=== PATIENT | female | born 1940 | race Caucasian/White ===

== ENCOUNTER 2016-10-07 12:50 | Emergency (ER) | payer OTHER, MEDICARE ==
[~2016-10-07] VITALS: Ht 162.6 cm; Wt 50.3 kg
[2016-10-07] MEDS ORDERED: SODIUM CHLORIDE 0.9% 1000ML 1,000 ML IV STA (12:59)
--- NOTE | 2016-10-07 13:03 | EMERGENCY ROOM VISIT NOTE ---
History Report prepared by Sujit: Yakov Mondragon Under the Supervision of: Dr. Magno Ortiz D.O. First contact with patient: 12:52 Chief Complaint: ABDOMINAL PAIN Stated Complaint: ABD PAIN History of Present Illness The patient is a 76 year old female with dementia who presents to the Emergency Room with complaints of persistent abdominal pain that started prior to arrival today. Per the nursing staff, the patient's called an ambulance after the patient was in her house holding her stomach. The patient had stools all over her legs. History severely limited secondary to patient's dementia. Source of History: patient History Limited By: dementia Onset: Prior to arrival today Position: abdomen Symptom Intensity: holding stomach due to pain Timing: other (persistent) Note: Associated symptoms: Loss of control of bowels. Review of Systems ROS limited secondary to patient's dementia. Past Medical & Surgical Medical Problems: (1) Dementia Family History Family history omitted secondary to advanced age. Social History Marital Status: Housing Status: lives with family Occupation Status: retired Current/Historical Medications Scheduled Levothyroxine Sodium (Synthroid), 50 MCG PO DAILY Metoprolol Succ (Toprol Xl) (Toprol-Xl), 50 MG PO DAILY Polyethylene Glycol 3350 (Miralax), 17 GM PO DAILY Allergies Coded Allergies: No Known Allergies (Unverified , 10/07/16) Physical Exam Vital Signs Date Time Temp Pulse Resp B/P Pulse Ox O2 Delivery O2 Flow Rate FiO2 10/07/16 15:53 82 18 191/92 96 10/07/16 14:39 81 18 179/100 98 Room Air 10/07/16 14:05 86 10/07/16 13:13 86 18 227/108 97 Room Air Physical Exam GENERAL: Patient is awake, alert, somewhat anxious appearing, appears comfortable. Very difficult to assess due to underlying dementia. EYES: The conjunctivae are clear. The pupils are round and reactive. EARS, NOSE, MOUTH AND THROAT: The nose is without any evidence of any deformity. Mucous membranes are moist tongue is midline NECK: The neck is nontender and supple. RESPIRATORY: Normal respiratory effort is noted there is no evidence of wheezing rhonchi or rales CARDIOVASCULAR: Regular rate and rhythm noted there no murmurs rubs or gallops normal S1 normal S2 GASTROINTESTINAL: The abdomen is moderately distended and diffusely tender. No specific guarding or rigidity noted. MUSCULOSKELETAL/EXTREMITIES: There is no evidence of gross deformity full range of motion is noted in the hips and shoulders SKIN: There is no obvious evidence of any rash. There are no petechiae, pallor or cyanosis noted. NEUROLOGIC: Patient is oriented to person, place, but not time or situation. Moves all extremities well. Medical Decision & Procedures ER Provider Diagnostic Interpretation: Radiology results as stated below per my review and radiologist interpretation: SINGLE VIEW CHEST CLINICAL HISTORY: Generalized abdominal pain. FINDINGS: An AP, portable, upright chest radiograph is obtained. No prior studies are available for comparison at the time of dictation. The examination is degraded by portable technique and patient rotation, as well as by collimation of the right lateral lung base. The cardiomediastinal silhouette is unremarkable. There is mild atherosclerotic calcification of the thoracic aorta. The lungs and pleural spaces are clear. No pneumothorax is seen. The skeletal structures are osteopenic. The bony thorax is grossly intact. IMPRESSION: No acute cardiopulmonary abnormality is identified noting a compromised examination and exclusion of the right lateral lung base. Electronically signed by: Kedar Melchor M.D. 10/07/2016 2:04 PM Dictated Date/Time: 10/07/2016 2:00 PM ABDOMEN AND PELVIS CT WITHOUT CONTRAST CT DOSE: 253.32 mGy.cm HISTORY: Generalized abdominal pain TECHNIQUE: Multiaxial CT images of the abdomen and pelvis were performed without contrast. COMPARISON STUDY: None. FINDINGS: The lung bases are clear. No pneumoperitoneum. No pneumatosis. Mild superior endplate compression fracture at L3. This is likely chronic. There is also old superior endplate compression fracture at T10. Small hiatus hernia. Suboptimal evaluation of the abdomen and pelvis due to motion artifact. The unenhanced liver, gallbladder, spleen, adrenal glands, and kidneys are unremarkable. The visualized pancreas appears unremarkable. No retroperitoneal lymphadenopathy. The bladder, uterus, and adnexa are within normal limits. Suboptimal evaluation for bowel pathology due to the lack of intravenous and oral contrast. Large amount of well-formed stool seen within the rectum. Moderate well-formed stool seen within the ascending and transverse colon. Normal appendix. No definite bowel wall thickening or obstruction. IMPRESSION: 1. Suboptimal evaluation of the abdomen and pelvis due to lack of contrast and patient motion. 2. No definite bowel wall thickening or obstruction. 3. Moderate to large amount well-formed stool seen within the colon and rectum. 4. Normal appendix. 5. Colonic diverticulosis. 6. Mild superior endplate compression fractures at T10 and L3 which are technically age indeterminate but likely old. Electronically signed by: Magan Christie M.D. 10/07/2016 1:57 PM Dictated Date/Time: 10/07/2016 1:33 PM Laboratory Results 10/07/16 13:47 Red Blood Count 4.95, Mean Corpuscular Volume 89.5, Mean Corpuscular Hemoglobin 30.5, Mean Corpuscular Hemoglobin Concent 34.1, Mean Platelet Volume 11.0, Neutrophils (%) (Auto) 81.3, Lymphocytes (%) (Auto) 11.0, Monocytes (%) (Auto) 7.3, Eosinophils (%) (Auto) 0.1, Basophils (%) (Auto) 0.1, Neutrophils # (Auto) 7.20, Lymphocytes # (Auto) 0.98, Monocytes # (Auto) 0.65, Eosinophils # (Auto) 0.01, Basophils # (Auto) 0.01 10/07/16 13:47 Test 10/07/16 13:47 10/07/16 13:52 White Blood Count 8.87 K/uL (4.8-10.8) Red Blood Count 4.95 M/uL (4.2-5.4) Hemoglobin 15.1 g/dL (12.0-16.0) Hematocrit 44.3 % (37-47) Mean Corpuscular Volume 89.5 fL (80-100) Mean Corpuscular Hemoglobin 30.5 pg (25-34) Mean Corpuscular Hemoglobin Concent 34.1 g/dl (32-36) Platelet Count 234 K/uL (130-400) Mean Platelet Volume 11.0 fL (7.4-10.4) Neutrophils (%) (Auto) 81.3 % Lymphocytes (%) (Auto) 11.0 % Monocytes (%) (Auto) 7.3 % Eosinophils (%) (Auto) 0.1 % Basophils (%) (Auto) 0.1 % Neutrophils # (Auto) 7.20 K/uL (1.4-6.5) Lymphocytes # (Auto) 0.98 K/uL (1.2-3.4) Monocytes # (Auto) 0.65 K/uL (0.11-0.59) Eosinophils # (Auto) 0.01 K/uL (0-0.5) Basophils # (Auto) 0.01 K/uL (0-0.2) RDW Standard Deviation 44.2 fL (36.4-46.3) RDW Coefficient of Variation 13.5 % (11.5-14.5) Immature Granulocyte % (Auto) 0.2 % Immature Granulocyte # (Auto) 0.02 K/uL (0.00-0.02) Anion Gap 7.0 mmol/L (3-11) Est Creatinine Clear Calc Drug Dose 43.3 ml/min Estimated GFR () 76.1 Estimated GFR (Non- 65.6 BUN/Creatinine Ratio 23.1 (10-20) Calcium Level 9.8 mg/dl (8.5-10.1) Total Bilirubin 0.6 mg/dl (0.2-1) Direct Bilirubin 0.1 mg/dl (0-0.2) Aspartate Amino Transf (AST/SGOT) 22 U/L (15-37) Alanine Aminotransferase (ALT/SGPT) 22 U/L (12-78) Alkaline Phosphatase 108 U/L (45-117) Total Creatine Kinase 74 U/L (26-192) Creatine Kinase MB 2.0 ng/ml (0.5-3.6) Creatine Kinase MB Ratio 2.7 (0-3.0) Troponin I < 0.015 ng/ml (0-0.045) Total Protein 8.3 gm/dl (6.4-8.2) Albumin 4.4 gm/dl (3.4-5.0) Lipase 146 U/L (73-393) Bedside Lactic Acid Venous 2.35 mmol/L (0.90-1.70) Laboratory results per my review. Medications Administered Medications (Trade) Dose Ordered Sig/Altagracia Route Start Time Stop Time Status Last Admin Dose Admin Sodium Chloride 1,000 ml @ 125 mls/hr Q8H STAT IV 10/07/16 12:59 10/07/16 16:16 DC 10/07/16 14:34 125 MLS/HR Sodium Chloride (Nss 500ml) 500 ml @ 999 mls/hr Q31M STAT IV 10/07/16 13:55 10/07/16 14:25 DC 10/07/16 13:55 999 MLS/HR ECG Indication: abdominal pain Rate (beats per minute): 92 Rhythm: normal sinus Findings: ST depression, no ectopy, other (incomplete RBBB pattern noted) Comparison ECG Date: no prior available ED Course 1254: The patient was evaluated in room C5. A complete history and physical examination were performed. 1259: Ordered NSS 1000 ml @ 125 mls/hr IV. 1355: Ordered NSS 500 ml @ 999 mls/hr IV. 1545: Upon reevaluation, the patient is resting comfortably. I discussed the results and treatment plan with her and her family. They verbally expressed agreement and understanding of the treatment plan. The patient will be discharged home. Medical Decision History obtained from nursing staff. Differential diagnosis: Etiologies such as appendicitis, diverticulitis, PUD, biliary pathology, UTI, pancreatitis, obstruction, mesenteric ischemia, aortic pathology, infections, inflammatory bowel disease, renal colic, as well as others were entertained. Additional history is obtained from the family members. The patient is a 76-year-old female who presented to the emergency department for an evaluation of abdominal pain. The patient was found have constipation and fecal impaction. She was disimpacted by nursing staff and was feeling much better on subsequent reevaluation. I discussed the patient's laboratory radiographic studies with the family. I recommended that they follow-up with the primary care physician in a few days and started the patient on a course of Juliann lax. There are also encouraged to return to emergency department immediately if symptoms change worsen or the need arises. Impression Primary Impression: Constipation Additional Impression: Abdominal pain Scribe Attestation The scribe's documentation has been prepared under my direction and personally reviewed by me in its entirety. I confirm that the note above accurately reflects all work, treatment, procedures, and medical decision making performed by me. Departure Information Dispostion Home / Self-Care Prescriptions Polyethylene Glycol 3350 (MIRALAX) 1 Pow Pow 17 GM PO DAILY, #527 GM Prov: Magno Ortiz DO 10/07/16 Referrals Mayrana Urrutia MD (PCP) Forms HOME CARE DOCUMENTATION FORM, IMPORTANT VISIT INFORMATION Patient Instructions Constipation, ED Abd Pain Unkn Cause Fem, My [facility] Additional Instructions Continue all medications as prescribed. Follow-up with your family doctor this week for reevaluation. Return to the emergency department immediately if symptoms change worsen or the need arises. Problem Qualifiers Primary Impression: Constipation Constipation type: unspecified constipation type Qualified Codes: K59.00 - Constipation, unspecified Additional Impression: Abdominal pain Abdominal location: unspecified location Qualified Codes: R10.9 - Unspecified abdominal pain
[2016-10-07 13:13] VITALS: Ht 162.6 cm; Wt 50.3 kg
[2016-10-07] MEDS ORDERED: SODIUM CHLORIDE 0.9% 500ML 500 ML IV STA (13:55)
--- NOTE | 2016-10-07 13:59 | DIAGNOSTIC IMAGING REPORT ---
ABDOMEN AND PELVIS CT WITHOUT CONTRAST CT DOSE: 253.32 mGy.cm HISTORY: Generalized abdominal pain TECHNIQUE: Multiaxial CT images of the abdomen and pelvis were performed without contrast. COMPARISON STUDY: None. FINDINGS: The lung bases are clear. No pneumoperitoneum. No pneumatosis. Mild superior endplate compression fracture at L3. This is likely chronic. There is also old superior endplate compression fracture at T10. Small hiatus hernia. Suboptimal evaluation of the abdomen and pelvis due to motion artifact. The unenhanced liver, gallbladder, spleen, adrenal glands, and kidneys are unremarkable. The visualized pancreas appears unremarkable. No retroperitoneal lymphadenopathy. The bladder, uterus, and adnexa are within normal limits. Suboptimal evaluation for bowel pathology due to the lack of intravenous and oral contrast. Large amount of well-formed stool seen within the rectum. Moderate well-formed stool seen within the ascending and transverse colon. Normal appendix. No definite bowel wall thickening or obstruction. IMPRESSION: 1. Suboptimal evaluation of the abdomen and pelvis due to lack of contrast and patient motion. 2. No definite bowel wall thickening or obstruction. 3. Moderate to large amount well-formed stool seen within the colon and rectum. 4. Normal appendix. 5. Colonic diverticulosis. 6. Mild superior endplate compression fractures at T10 and L3 which are technically age indeterminate but likely old. Electronically signed by: Magan Christie M.D. 10/07/2016 1:57 PM Dictated Date/Time: 10/07/2016 1:33 PM
--- NOTE | 2016-10-07 14:06 | DIAGNOSTIC IMAGING REPORT ---
SINGLE VIEW CHEST CLINICAL HISTORY: Generalized abdominal pain. FINDINGS: An AP, portable, upright chest radiograph is obtained. No prior studies are available for comparison at the time of dictation. The examination is degraded by portable technique and patient rotation, as well as by collimation of the right lateral lung base. The cardiomediastinal silhouette is unremarkable. There is mild atherosclerotic calcification of the thoracic aorta. The lungs and pleural spaces are clear. No pneumothorax is seen. The skeletal structures are osteopenic. The bony thorax is grossly intact. IMPRESSION: No acute cardiopulmonary abnormality is identified noting a compromised examination and exclusion of the right lateral lung base. Electronically signed by: Kedar Melchor M.D. 10/07/2016 2:04 PM Dictated Date/Time: 10/07/2016 2:00 PM
[2016-10-07] MEDS ORDERED: METO50TA7 PO (14:17)
[2016-10-07] MEDS ORDERED: LEVO50TA PO (14:17)
[2016-10-07 14:25] LABS: BASO % 0.1 %; BASO ABS # 0.01 K/uL (0-0.2); COMPLETE YES; EOS % 0.1 %; HEMATOCRIT 44.3 % (37-47); IG% 0.2 %; LYMPH ABS # 0.98 K/uL (1.2-3.4); MEAN CELL VOLUME 89.5 fL (80-100); MEAN CORPUSCULAR HEMOGLOBIN 30.5 pg (25-34); MEAN CORPUSCULAR HGB CONC 34.1 g/dl (32-36); MONO % 7.3 %; NEUT % 81.3 %; PLATELET COUNT 234 K/uL (130-400); RED BLOOD COUNT 4.95 M/uL (4.2-5.4); WHITE BLOOD COUNT 8.87 K/uL (4.8-10.8)
[2016-10-07 14:33] LABS: ALT/SGPT 22 U/L (12-78); AST/SGOT 22 U/L (15-37); BLOOD UREA NITROGEN 20 mg/dl (7-18); BUN/CREATININE RATIO 23.1 (10-20); CALCIUM 9.8 mg/dl (8.5-10.1); CARBON DIOXIDE 28 mmol/L (21-32); CHLORIDE 104 mmol/L (98-107); CREATININE 0.85 mg/dl (0.60-1.20); GLUCOSE 143 mg/dl (70-99); SODIUM 139 mmol/L (136-145)
[2016-10-07 15:05] LABS: ALKALINE PHOSPHATASE 108 U/L (45-117); CKMB/CK RATIO 2.7 (0-3.0)
[2016-10-07] MEDS ORDERED: POLY335019 PO (15:42)
[2016-10-07 15:53] VITALS: BP 191/92; PULSE 82; O2SAT 96
== END 2016-10-07 15:56 | disposition home or self-care (01) ==
LOC: EDBD 12:50 → C.EDC 12:51
DX: K59.00 Constipation, unspecified (principal); R10.9 Unspecified abdominal pain; F03.90 Unspecified dementia, unspecified severity, without behavioral disturbance, psychotic disturbance, mood disturbance, and anxiety; Z79.899 Other long term (current) drug therapy

== ENCOUNTER → 2017-05-28 | Outpatient (CLI) | payer OTHER, MEDICARE ==
[~2017-05-28] MED LIST: LEVO50TA PO; METO50TA7 PO
[2017-05-28 17:00] LABS: BASO % 0.3 %; BASO ABS # 0.02 K/uL (0-0.2); COMPLETE YES; HEMATOCRIT 44.3 % (37-47); IG% 0.5 %; LYMPH % 22.4 %; LYMPH ABS # 1.45 K/uL (1.2-3.4); MEAN CELL VOLUME 94.7 fL (80-100); MEAN CORPUSCULAR HEMOGLOBIN 30.6 pg (25-34); MEAN CORPUSCULAR HGB CONC 32.3 g/dl (32-36); MONO % 11.8 %; PLATELET COUNT 283 K/uL (130-400); RED BLOOD COUNT 4.68 M/uL (4.2-5.4); WHITE BLOOD COUNT 6.46 K/uL (4.8-10.8)
[2017-05-28 17:09] LABS: BLOOD UREA NITROGEN 17 mg/dl (7-18); CALCIUM 9.4 mg/dl (8.5-10.1); CARBON DIOXIDE 31 mmol/L (21-32); CHLORIDE 101 mmol/L (98-107); CREATININE 0.67 mg/dl (0.60-1.20); GLUCOSE 84 mg/dl (70-99); POTASSIUM 4.1 mmol/L (3.5-5.1); SODIUM 135 mmol/L (136-145)
== END | disposition home or self-care (01) ==
LOC: C.LABBC 13:37
PROVIDERS: ATTEND Family Medicine
DX: E03.9 Hypothyroidism, unspecified (principal); I10 Essential (primary) hypertension; R73.9 Hyperglycemia, unspecified

== ENCOUNTER 2017-11-19 14:51 | Emergency (ER) | payer OTHER, MEDICARE ==
[~2017-11-19] VITALS: Ht 160 cm; Wt 51.5 kg
[~2017-11-19 14:51] MED LIST changes: -METO50TA7 PO; +METO50TA8 PO
[2017-11-19 15:02] VITALS: TEMP 36.8; Ht 160 cm; Wt 51.5 kg
--- NOTE | 2017-11-19 16:27 | EMERGENCY ROOM VISIT NOTE ---
History Report prepared by Sujit: Ashwini Rojo Under the Supervision of: Dr. Christiano Quiñones D.O. 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 The patient presents to the ED by EMS. The patient lives at home with her . She has a history of dementia and prolapsed uterus. He was helping her on the toilet when he noticed 3-4 inches of what appeared to be prolapsed uterus. She seemed to be having pain. The history is limited secondary to patient's dementia. 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 Past Medical & Surgical Medical Problems: (1) Dementia Family History Noncontributory secondary to age. Social History Smoking Status: Unknown if Ever Smoked Marital Status: Housing Status: lives with family Occupation Status: retired Current/Historical Medications Scheduled Levothyroxine Sodium (Synthroid), 50 MCG PO DAILY Metoprolol Succ (Toprol Xl) (Toprol-Xl), 50 MG PO DAILY Allergies Coded Allergies: No Known Allergies (Unverified , 11/19/17) Physical Exam Vital Signs Date Time Temp Pulse Resp B/P (MAP) Pulse Ox O2 Delivery O2 Flow Rate FiO2 11/19/17 16:30 89 16 178/101 96 11/19/17 15:02 36.8 86 18 186/103 95 Room Air Physical Exam CONSTITUTIONAL/VITAL SIGNS: Reviewed / noted above. GENERAL: Non-toxic in appearance. INTEGUMENTARY: Warm, dry, and [place]. HEAD: Normocephalic. EYES: without scleral icterus or trauma. ENT/OROPHARYNX: clear and moist. LYMPHADENOPATHY/NECK: Is supple without lymphadenopathy or meningismus. RESPIRATORY: Lungs clear and equal. CARDIOVASCULAR: Regular rate and rhythm. GI/ABDOMEN: Soft and nontender. No organomegaly or pulsatile mass. No rebound or guarding. Normal bowel sounds. : Prolapsed uterus, slightly dry. EXTREMITIES: Warm and well perfused. BACK: No CVA tenderness. NEUROLOGICAL: Intact without focal deficits. PSYCHIATRIC: normal affect. MUSCULOSKELETAL: Normally developed with good muscle tone. Medical Decision & Procedures ED Course 1501: Previous medical records were reviewed. The patient was evaluated in room B12B. A complete history and physical examination was performed. 1523: I discussed the patient's case with SANDRA Pena Pest Control Specialist. She is in agreement with the plan. 1538: I spoke with the patient's . I discussed the results and treatment plan with him. He verbalized agreement of the treatment plan. She will be discharged home. Medical Decision Differential considered: prolapsed uterus, prolapsed bladder, infection. This is a 77-year-old female who presents to the ED with a chief complaint of a prolapse uterus. The patient's noticed it. The patient has dementia and is a poor historian. The patient was brought in by EMS. Exam reveals a prolapsed uterus. It was somewhat dry but no bleeding. Petroleum jelly was placed over the uterus and it was reduced. The patient tolerated this well. I spoke with Dr. Burgos about this. She does recommend that she can follow-up in the office for placement of pessary. In the meantime the was instructed on pushing the uterus back in after some application of petroleum jelly as needed. The patient was discharged Medication Reconcilliation Current Medication List: was personally reviewed by me Blood Pressure Screening Patient's blood pressure: Elevated blood pressure Blood pressure disposition: Referred to PCP Consults Time Called: 1521 Consulting Physician: SANDRA Pena Pest Control Specialist Returned Call: 1523 I discussed the patient's case with her. She is in agreement with the plan. Impression Primary Impression: Prolapsed uterus Scribe Attestation The scribe's documentation has been prepared under my direction and personally reviewed by me in its entirety. I confirm that the note above accurately reflects all work, treatment, procedures, and medical decision making performed by me. Departure Information Dispostion Home / Self-Care Referrals Maryana Urrutia MD (PCP) Zayra Burgos M.D. Patient Instructions My [facility] Additional Instructions If the prolapse occurs in the future, apply some petroleum jelly over the uterus and pushed back in. Follow-up with your plateman/Dr. Burgos for possible placement of pessary. Call tomorrow for appointment.
[2017-11-19 16:30] VITALS: BP 178/101; PULSE 89; O2SAT 96
== END 2017-11-19 16:30 | disposition home or self-care (01) ==
LOC: C.EDB 14:51
DX: N81.4 Uterovaginal prolapse, unspecified (principal); R03.0 Elevated blood-pressure reading, without diagnosis of hypertension; F03.90 Unspecified dementia, unspecified severity, without behavioral disturbance, psychotic disturbance, mood disturbance, and anxiety; Z79.899 Other long term (current) drug therapy

== ENCOUNTER 2018-09-18 09:47 | Inpatient (IN) ==
[2018-09-18] MEDS ORDERED: SODIUM CHLORIDE 0.9% 500 ML IV SCH (10:15)
[2018-09-18 10:20] LABS: Basophils # (auto) 0.02 K/uL (0-0.2); Basophils % (auto) 0.2 %; Eosinophils # (auto) 0.16 K/uL (0-0.5); Hematocrit (blood only) 43.4 % (37-47); Hemoglobin 14.7 g/dL (12.0-16.0); Immature Granulocytes # (auto) 0.08 K/uL (0.00-0.02); Lymphocytes # (auto) 1.74 K/uL (1.2-3.4); Lymphocytes % (auto) 21.2 %; Mean Corpuscular Hgb Conc 33.9 g/dL (32-36); Mean Corpuscular Volume 93.7 fL (80-100); Mean Platelet Volume 9.8 fL (7.4-10.4); Monocytes # (auto) 0.99 K/uL (0.11-0.59); Monocytes % (auto) 12.1 %; Neutrophils # (auto) 5.21 K/uL (1.4-6.5); Neutrophils % (auto) 63.5 %; Platelet Count 281 K/uL (130-400); RDW Coefficient of Variation 14.7 % (11.5-14.5); RDW Standard Deviation 50.2 fL (36.4-46.3); Red Blood Count 4.63 M/uL (4.2-5.4)
[2018-09-18 10:40] LABS: Alanine Aminotransferase 17 U/L (12-78); Albumin Level 3.6 gm/dl (3.4-5.0); Aspartate Aminotransferase 19 U/L (15-37); BUN Creatinine Ratio 12.5 (10-20); Blood Urea Nitrogen 11 mg/dl (7-18); Calcium 9.7 mg/dl (8.5-10.1); Carbon Dioxide 29 mmol/L (21-32); Chloride 104 mmol/L (98-107); Creatinine Clr Calc Pharmacy 44.1 ml/min; Est GFR (African American) 73.9; Est GFR (Non-African American) 63.8; Glucose 123 mg/dl (70-99); Magnesium 2.5 mg/dl (1.8-2.4); Potassium 4.2 mmol/L (3.5-5.1); Sodium 139 mmol/L (136-145)
[2018-09-18 10:47] LABS: Albumin Globulin Ratio 0.7 (0.9-2); Alkaline Phosphatase 149 U/L (45-117); Bilirubin,Total 0.6 mg/dl (0.2-1); Globulin 5.1 gm/dl (2.5-4.0); Total Protein 8.7 gm/dl (6.4-8.2); Troponin I < 0.015 ng/ml (0-0.045)
[2018-09-18] MEDS ORDERED: IOVERSOL 100ml IV PRN (11:13)
--- NOTE | 2018-09-18 11:24 | CT Scan Report ---
CT abd pelvis IV con only CT DOSE: 587.31 mGycm HISTORY: Pain consitpation x 2 weeks, decreased po distension TECHNIQUE: Multiaxial CT images of the abdomen and pelvis were performed following the use of intrave nous contrast. A dose lowering technique was utilized adhering to the principles of ALARA. COMPARISON STUDY: 10/07/2016 FINDINGS: Small bilateral pleural effusions. Right basilar atelectasis. Minimal atelectasis left base . Fixed hiatal hernia. The liver and pancreas enhance uniformly. Kidneys negative for hydronephrosis. Moderate increase in fecal load throughout the colon consistent with fecal stasis. Trace amount of bl adder debris. No free fluid within the pelvic cul-de-sac. Mild nonobstructive reactive small bowel il eus. IMPRESSION: 1. Small bilateral pleural effusions with bibasilar atelectatic change. 2. Fixed lateral hernia. 3. Increased colonic fecal load consistent with fecal stasis. 4. Mild nonobstructive reactive small bowel ileus. The above report was generated using voice recognition software. It may contain grammatical, syntax or spelling errors. Electronically signed by: Mono Parisi M.D. 09/18/2018 11:22 AM
--- NOTE | 2018-09-18 11:57 | Emergency Department Note ---
Entered by Renee Martinez acting as a scribe for History of Present Illness General Chief complaint: Illness Source: patient, family and RN notes reviewed Mode of arrival: EMS Limitations: altered mental status History of Present Illness Onset (ago): week(s) 2 Location: abdomen Pain Consistency: + constant Quality: + other (constipation) Associated symptoms: + loss of appetite, + nausea/vomiting (The patient denies vomiting.) and + other (The patient complains of constipation and decreased oral intake.) The HPI is limited secondary to the patients mental status. The patient is an 78 year old female with a history of dementia who presents to the ED with complaints of constant constipation that onset 2 weeks ago. Per nursing staff, the patient lives with her who also has difficulty with memory problems. He states that she has not been eating normally and has decreased oral intake, but has not been vomiting. He notes that he is not sure when his last bowel move ment was, but thinks it was about 2 weeks ago. Home Medications Home Medications Medication Instructions Recorded Confirmed Type furosemide [Lasix] 20 mg PO DAILY PRN 09/18/18 09/18/18 History multivitamin 1 tab PO DAILY 09/18/18 09/18/18 History nystatin 1 applic TOPICAL BID 09/18/18 09/18/18 History Allergies Allergy/AdvReac Type Severity Reaction Status Date / Time No Known Allergies Allergy Unverified 11/19/17 16:34 Past Med/Surg History Medical History Dementia (Chronic) Abdominal pain (Acute) Hypothyroidism Surgical History H/O breast biopsy Family History Mother Cancer Social History Communication Ability: Impaired Beliefs That Will Affect Care: None marital status: marital status details: Current Living Situation: Spouse Current Living Situation Comment: Jaycee Berry current occupational status: retired 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 Other (ROS is limited seconday to altered mental status) Physical Exam Vital Signs Vital Signs - 24 hr 09/18/18 09:59 09/18/18 10:48 09/18/18 12:55 Temperature 36.5 C Temperature Source Axillary Sepsis Recent Fever Within 48 Hours No Sepsis Action Taken by Nursing No Action Required Pulse Rate 108 H Pulse Rate [Left Brachial] Pulse Rate [Right Finger] 75 65 Pulse Rhythm [Left Brachial] Pulse Rhythm [Right Finger] Regular Pulse Strength [Left Brachial] Pulse Strength [Right Finger] Normal Respiratory Rate 24 18 18 Respiratory Effort / Characteristics Non-Labored Respiratory Depth Normal Normal Respiratory Pattern Regular Blood Pressure 170/129 H Blood Pressure [Left Arm] 200/147 H 172/81 H Blood Pressure Mean 142 Blood Pressure Mean [Left Arm] 164 111 Blood Pressure Position Lying Blood Pressure Position [Left Arm] Lying Pulse Oximetry 95 98 98 Oxygen Delivery Method Room Air Room Air Room Air 09/18/18 14:05 Temperature 36.9 C Temperature Source Oral Sepsis Recent Fever Within 48 Hours Sepsis Action Taken by Nursing Pulse Rate Pulse Rate [Left Brachial] 91 H Pulse Rate [Right Finger] Pulse Rhythm [Left Brachial] Regular Pulse Rhythm [Right Finger] Pulse Strength [Left Brachial] Normal Pulse Strength [Right Finger] Respiratory Rate 18 Respiratory Effort / Characteristics Non-Labored Respiratory Depth Shallow Respiratory Pattern Regular Blood Pressure Blood Pressure [Left Arm] 175/71 H Blood Pressure Mean Blood Pressure Mean [Left Arm] 105 Blood Pressure Position Blood Pressure Position [Left Arm] Lying Pulse Oximetry 100 Oxygen Delivery Method Room Air GENERAL: Alert to verbal stimuli, moaning on the bed. HENT: Normocephalic, atraumatic. EYES: Slight conjunctiva injection and discharge. Sclera non-icteric. NECK: Supple. No nuchal rigidity. RESPIRATORY: Clear to auscultation. Normal respiratory effort. CARDIAC: Normal rate. Normal rhythm. Extremities warm and well perfused. GI: Soft, moderately distended. Slight tenderness to palpation. No rebound or guarding. No masses. RECTAL: Deferred. MUSCULOSKELETAL: Atraumatic. Chest examination reveals no tenderness. There is no CVA tenderness to palpation. LOWER EXTREMITIES: Calves are equal size bilaterally and non-tender. She has some chronic 1+ edema bilaterally. NEURO: Normal sensorium. No sensory or motor deficits noted. No facial droop. SKIN: Severe excoriations and erythema of the inguinal, pelvic, and sacral regions. Course 0957: Past medical records reviewed. The patient was evaluated in room C11B, and a complete history and physical examination were performed. 1053: I spoke with the patient's over the phone. 1201: I reviewed the patient's case with Dr. Rosa Huynh- [facility]. He will evaluate the patient for further management. Consultations Consultation #1: 1203: I reviewed the patient's case with Dr. Rosa Huynh- [facility]. He will evaluate the patient for further management. Time: 12:01 Administered Medications Ascorbic Acid (Vitamin C) 500 mg PO QAM [facility] Stop: 10/18/18 14:29 Last Admin: 09/18/18 16:21 Dose: 500 mg Documented by: [id number] Bisacodyl (Dulcolax) 5 mg PO DAILY [facility] Stop: 09/21/18 14:29 Last Admin: 09/18/18 16:13 Dose: 5 mg Documented by: [id number] Flucon[facility] ([facility]an) [facility] Stop: 09/28/18 14:29 Last Admin: 09/18/18 16:16 Dose: 100 mg Documented by: [id number] Ceftriaxone Sodium 1,000 mg/ (Dextrose) 50 mls @ 100 mls/hr IV Q24H [facility]; Protocol Stop: 09/23/18 12:59 Last Admin: 09/18/18 16:08 Dose: 100 mls/hr Documented by: [id number] Sodium Chloride (Nss 1000ml) 1,000 mls @ 80 mls/hr IV .[id number] [facility] Stop: 09/19/18 15:29 Last Admin: 09/18/18 15:08 Dose: 80 mls/hr Documented by: [id number] Multivitamins/Minerals (Multivitamin W/ Minerals Tab) 1 [facility] Stop: 10/18/18 14:29 Last Admin: 09/18/18 16:21 Dose: 1 tab Documented by: [id number] Nifedipine (Procardia Xl) 30 mg [facility] Stop: 10/18/18 14:29 Last Admin: 09/18/18 16:18 Dose: 30 mg Documented by: [id number] Nystatin (Mycostatin) 1 appln EXT TID [facility] Stop: 10/18/18 14:29 Last Admin: 09/18/18 16:18 Dose: 1 appln Documented by: [id number] Zinc Sulfate (Zinc Sulfate) 220 mg [facility] Stop: 10/18/18 14:29 Last Admin: 09/18/18 16:21 Dose: 220 mg Documented by: [id number] Discontinued Medications Bisacodyl (Dulcolax) 10 mg CO NOW STA Stop: 09/18/18 14:31 Last Admin: 09/18/18 16:16 Dose: 10 mg Documented by: [id number] Sodium Chloride (Nss) 500 mls @ 999 mls/hr IV .Q31M [facility] Stop: 09/18/18 10:45 Last Infusion: 09/18/18 11:54 Dose: 0 mls/hr Documented by: [id number] Admin: 09/18/18 10:13 Dose: 999 mls/hr Documented by: [id number] Ioversol (Optiray 320 100ml) 93 ml IV ONCE PRN PRN Reason: Interaction Checking Stop: 09/22/18 11:12 Last Admin: 09/18/18 11:13 Dose: 93 ml Documented by: [id number] Medical Decision Making Differential Diagnosis Differential diagnosis: Etiologies such as appendicitis, diverticulitis, PUD, biliary pathology, UTI, pancreatitis, obstruction, mesenteric ischemia, aortic pathology, infections, inflammatory bowel disease, renal colic, as well as others were entertained. Medical Records Attestation: I reviewed the patient's medical records. Home Medications Current Medication List: was personally reviewed by me Laboratory Data Attestation: I reviewed the patient's lab results. Result diagrams: 09/18/18 10:05 09/18/18 10:05 Lab Results 09/18/18 09/18/18 09/18/18 Range/Units 10:05 10:05 10:05 WBC 8.20 (4.8-10.8) K/uL RBC 4.63 (4.2-5.4) M/uL Hgb 14.7 (12.0-16.0) g/dL Hct 43.4 (37-47) % MCV 93.7 (80-100) fL MCH 31.7 (25-34) pg MCHC 33.9 (32-36) g/dL RDW Std Deviation 50.2 H (36.4-46.3) fL RDW Coeff of Patrick 14.7 H (11.5-14.5) % Plt Count 281 (130-400) K/uL MPV 9.8 (7.4-10.4) fL Immature Gran % (Auto) 1.0 % Neut % (Auto) 63.5 % Lymph % (Auto) 21.2 % [place] % (Auto) 12.1 % Eos % (Auto) 2.0 % Baso % (Auto) 0.2 % Immature Gran # (Auto) 0.08 H (0.00-0.02) K/uL Neut # (Auto) 5.21 (1.4-6.5) K/uL Lymph # (Auto) 1.74 (1.2-3.4) K/uL Rolette # (Auto) 0.99 H (0.11-0.59) K/uL Eos # (Auto) 0.16 (0-0.5) K/uL Baso # (Auto) 0.02 (0-0.2) K/uL PT (9.0-12.0) Seconds INR (0.9-1.1) APTT (21.0-31.0) Seconds PTT Ratio Sodium 139 (136-145) mmol/L Potassium 4.2 (3.5-5.1) mmol/L Chloride 104 (98-107) mmol/L Carbon Dioxide 29 (21-32) mmol/L Anion Gap 5.0 (3-11) BUN 11 (7-18) mg/dl Creatinine 0.86 (0.6-1.2) mg/dl Est Cr Clr Drug Dosing 44.1 ml/min Est GFR ( Amer) 73.9 Est GFR (Non-Af Amer) 63.8 BUN/Creatinine Ratio 12.5 (10-20) Glucose 123 H (70-99) mg/dl Calcium 9.7 (8.5-10.1) mg/dl Magnesium 2.5 H (1.8-2.4) mg/dl Total Bilirubin 0.6 (0.2-1) mg/dl AST 19 (15-37) U/L ALT 17 (12-78) U/L Alkaline Phosphatase 149 H (45-117) U/L Troponin I < 0.015 (0-0.045) ng/ml Total Protein 8.7 H (6.4-8.2) gm/dl Albumin 3.6 (3.4-5.0) gm/dl Globulin 5.1 H (2.5-4.0) gm/dl Albumin/Globulin Ratio 0.7 L (0.9-2) Lipase 80 (73-393) U/L TSH 57.000 H (0.300-4.500) uIu/ml Urine Color Urine Appearance (Clear) Urine pH (4.5-7.5) Ur Specific [place] (1.000-1.030) Urine Protein (Negative) Urine Glucose (UA) (Negative) Urine Ketones (Negative) Urine Blood (Negative) Urine Nitrite (Negative) Urine Bilirubin (Negative) Urine Urobilinogen (Negative) Ur Leukocyte Esterase (Negative) Urine WBC (Auto) (0-5) /hpf Urine RBC (Auto) (0-4) /hpf U Hyaline Cast (Auto) (0-5) /lpf U Epithel Cells (Auto) (0-5) /lpf Urine Bacteria (Auto) (Negative) Calcium Oxalate Crystal (None Prsent) Urine Mucus (None Prsent) 09/18/18 09/18/18 Range/Units 10:05 11:51 WBC (4.8-10.8) K/uL RBC (4.2-5.4) M/uL Hgb (12.0-16.0) g/dL Hct (37-47) % MCV (80-100) fL MCH (25-34) pg MCHC (32-36) g/dL RDW Std Deviation (36.4-46.3) fL RDW Coeff of Patrick (11.5-14.5) % Plt Count (130-400) K/uL MPV (7.4-10.4) fL Immature Gran % (Auto) % Neut % (Auto) % Lymph % (Auto) % Ro[place] % (Auto) % Eos % (Auto) % Baso % (Auto) % Immature Gran # (Auto) (0.00-0.02) K/uL Neut # (Auto) (1.4-6.5) K/uL Lymph # (Auto) (1.2-3.4) K/uL Rolette # (Auto) (0.11-0.59) K/uL Eos # (Auto) (0-0.5) K/uL Baso # (Auto) (0-0.2) K/uL PT 10.6 (9.0-12.0) Seconds INR 1.0 (0.9-1.1) APTT 31.2 H (21.0-31.0) Seconds PTT Ratio 1.2 Sodium (136-145) mmol/L Potassium (3.5-5.1) mmol/L Chloride (98-107) mmol/L Carbon Dioxide (21-32) mmol/L Anion Gap (3-11) BUN (7-18) mg/dl Creatinine (0.6-1.2) mg/dl Est Cr Clr Drug Dosing ml/min Est GFR ( Amer) Est GFR (Non-Af Amer) BUN/Creatinine Ratio (10-20) Glucose (70-99) mg/dl Calcium (8.5-10.1) mg/dl Magnesium (1.8-2.4) mg/dl Total Bilirubin (0.2-1) mg/dl AST (15-37) U/L ALT (12-78) U/L Alkaline Phosphatase (45-117) U/L Troponin I (0-0.045) ng/ml Total Protein (6.4-8.2) gm/dl Albumin (3.4-5.0) gm/dl Globulin (2.5-4.0) gm/dl Albumin/Globulin Ratio (0.9-2) Lipase (73-393) U/L TSH (0.300-4.500) uIu/ml Urine Color Yellow Urine Appearance Cloudy H (Clear) Urine pH 7.5 (4.5-7.5) Ur Specific [place] 1.033 H (1.000-1.030) Urine Protein Negative (Negative) Urine Glucose (UA) Negative (Negative) Urine Ketones Trace H (Negative) Urine Blood Negative (Negative) Urine Nitrite Positive H (Negative) Urine Bilirubin Negative (Negative) Urine Urobilinogen Negative (Negative) Ur Leukocyte Esterase Trace H (Negative) Urine WBC (Auto) 10-30 H (0-5) /hpf Urine RBC (Auto) 0-4 (0-4) /hpf U Hyaline Cast (Auto) 0 (0-5) /lpf U Epithel Cells (Auto) >30 H (0-5) /lpf Urine Bacteria (Auto) 4+ H (Negative) Calcium Oxalate Crystal Present H (None Prsent) Urine Mucus Present H (None Prsent) Imaging Data Radiologist's Impression: Radiology results as stated below per my review and the radiologist's interpretation: CT abd pelvis IV con only CT DOSE: 587.31 mGycm HISTORY: Pain consitpation x 2 weeks, decreased po distension TECHNIQUE: Multiaxial CT images of the abdomen and pelvis were performed following the use of intravenous contrast. A dose lowering technique was ut ilized adhering to the principles of ALARA. COMPARISON STUDY: 10/07/2016 FINDINGS: Small bilateral pleural effusions. Right basilar atelectasis. Minimal atelectasis left base. Fixed hiatal hernia. The liver and pancreas enhance uniformly. Kidneys negative for hydronephrosis. Moderate increase in fecal load throughout the colon consistent with fecal stasis. Trace amount of bladder debris. No free fluid within the pelvic cul-de-sac. Mild nonobstructive reactive small bowel ileus. IMPRESSION: 1. Small bilateral pleural effusions with bibasilar atelectatic change. 2. Fixed lateral hernia. 3. Increased colonic fecal load consistent with fecal stasis. 4. Mild nonobstructive reactive small bowel ileus. The above report was generated using voice recognition software. It may contain grammatical, syntax or spelling errors. Electronically signed by: Mono Parisi M.D. 09/18/2018 11:22 AM Dictated: 09/18/18 1115 Transcribed: 09/18/18 1115 Blood Pressure Blood Pressure Findings: Elevated blood pressure Blood Pressure Disposition: further management by hospitalist ODALYS Narrative Patient is an 78-year-old female with a history of uterine prolapse and dementia from home via EMS today. By report has not had a bowel movement in 2 weeks and decreased oral intake. Patient is unable to provide additional meaningful history. Did call and discuss the patient's history with her . He states that she has been much more weak and not able to ambulate well at home either. States he is tried milk of magnesia little bit of mag citrate without improvement. On exam there is some abdominal distention and may be some mild patient has extensive excoriations in the inguinal and pelvic regions extending into the sacral area. Basic labs including hepatic function test and pancreatic enzymes were checked along with a CT of the abdomen pelvis. Urinalysis checked. If concerns by the patient's ability to build her to care for her at home given the severe excoriations/wounds in the inguinal and sacral area. Laboratory studies show no leukocytosis or anemia. No significant likely abnormality or renal injury is noted. No evidence of acute LFT abnormalities or pancreatitis. CT scan shows evidence of constipation/fecal stasis with nonobstructive reactive small bowel ileus. Again with the significant excoriations and wound care requirements of her inguinal/pelvic/sacral area believe admission is indicated discussed with the hospitalist. Impression & Plan Constipation, Ileus, unspecified, Skin breakdown Discharge Plan Visit Data *Final* Discharge Date/Time: 09/18/18 13:50 Chief Complaint: Illness ED Provider: Fritz Singleton Discharge Problem: Constipation, Ileus, unspecified, Skin breakdown Patient Disposition: Admitted As Inpatient Discharge Instructions Interventions: ED Discharge Assessment Last Done: 09/18/18 13:50 Discharge Problem: Constipation Qualifiers: Constipation type: unspecified constipation type Qualified Code(s): K59.00 - Constipation, unspecified The scribe's documentation has been prepared under my direction and personally reviewed by me in its entirety. I confirm that the note above accurately reflects all work, treatment, procedures, and medical decision making performed by me.
[2018-09-18 12:07] LABS: Appearance Urine Cloudy (Clear); Bacteria Urine Automated 4+ (Negative); Bilirubin Urine Negative (Negative); Blood Urine Negative (Negative); Color Urine Yellow; Epithelial Cell Urine Auto >30 /lpf (0-5); Glucose Urine UA Negative (Negative); Ketones Urine Trace (Negative); Leukocyte Esterase Urine Trace (Negative); Nitrite Urine Positive (Negative); Protein Urine Negative (Negative); Specific Gravity Urine 1.033 (1.000-1.030); Urobilinogen Urine Negative (Negative); pH Urine 7.5 (4.5-7.5)
--- NOTE | 2018-09-18 12:14 | History & Physical Report ---
Date of Service September 18, 2018 Assessment & Plan (1) Constipation: reports she does poorly with milk of mag and other agents like such. Thus, will give a dulcolax suppository now since it has been 2+ weeks since last BM. Then give dulcolax PO daily for 2-3 days. Maintenance - would give miralax +/- senna. On exam she was NOT impacted -- defer on enemas. Severely decompensated hypothyroidism likely contributing to her fecal stasis/constipation in addition to her dementia. Present on Admission?: Yes (2) Ileus, unspecified: Due to constipation. The ileus is likely causing her lack of appetite. See 'constipation' above re: details for Rx. Full liquid diet and then advance as tolerated. Treat thyroid disease. IV fluids. Present on Admission?: Yes (3) Dementia: advanced/severe. PT,OT evals. Speech eval to check swallowing. Haldol IM prn; may need standing oral antipsychotic at bedtime if she has severe sundowning / behavioral disturbance. Pt's told me by phone that he doesn't necessarily want her placed in SNF but I am concerned he did not accompany her to the hospital, I am concerned a bout her hygiene, etc. Will ask social work to see in consult to help with disposition. (4) Groin rash: severe diaper dermatitis. likely with at least some yeast component. diflucan 100mg po daily x 7-10days. nystatin powder TID to groin and under breasts. wound care consult appreciated. vit C, zinc, and MVI to help promote healing and for nutritional purposes. Present on Admission?: Yes (5) Hypothyroidism: h/o such. TSH today markedly elevated. Could easily be contributing to skin issues, constipation, and worsening mental status. restart synthroid - given the severity and her advanced age go slowly; start 25mcg daily. repeat TSH 4-6 weeks. Present on Admission?: Yes (6) UTI (urinary tract infection): rocephin 1gm daily. follow culture. Present on Admission?: Yes (7) Eyelid disorder: bletharitis b/l. erythromycin eye ointment at HS. Present on Admission?: Yes (8) Failure to thrive: due to dementia and severe hypothyroidism. treat hypothyroidism. PT,OT evals. (9) Elevated BP without diagnosis of hypertension: reports no h/o HTN, but BPs are VERY high today (systolics 170s to 200). Start nifedipine xr 30mg daily. Follow and adjust meds as needed. Some of the BP elevation could be from agitation from dementia. (10) DVT prophylaxis: heparin 5000 units BID confirmed DNR status total time spent on admission activities - 70 minutes History of Present Illness Chief Complaint: constipation; no bowel movement in 2 weeks Primary Care Provider: Maryana Urrutia MD 78yo female with advanced dementia and previous h/o hypothyroidism who presents from home via EMS with severe constipation and a severe rash in her groin area. Patient was awake but unable to speak during the visit due to her dementia and thus all information was gathered from her with whom she lives. I spoke with the by phone. reports 2+ weeks of inability to have a bowel movement despite giving her multiple doses of milk of magnesia. She was eating/drinking normally up until 2-3 days ago and then her oral intake was quite poor. No fevers, cough, shortness of breath, or emesis. states her groin rash has been present for 2-3 days. The patient has had pruritis from this. At baseline the patient has severe dementia. She stopped walking entirely about 1 week ago. She was walking on a limited basis with assistance (in her house only) about 1 month ago. She is largely nonverbal. When she does speak it is hard to understand/nonsensical. She sundowns frequently and has hallucinations per the . She is incontinent of urine. When asked about SNF placement the was not keen on this idea, stating "we provide all of her care." He voiced she is a DNR. Lastly, he mentioned she previously took synthroid several years ago but it was stopped when labs suggested her "thyroid was fine." She doesn't have h/o HTN. Allergies Allergy/AdvReac Type Severity Reaction Status Date / Time No Known Allergies Allergy Unverified 11/19/17 16:34 Home Medications Home Medications Medication Instructions Recorded Confirmed Type furosemide [Lasix] 20 mg PO DAILY PRN 09/18/18 09/18/18 History multivitamin 1 tab PO DAILY 09/18/18 09/18/18 History nystatin 1 applic TOPICAL BID 09/18/18 09/18/18 History Past Med/Surg History Medical History Dementia (Chronic) Abdominal pain (Acute) Hypothyroidism Surgical History H/O breast biopsy Family History Mother Cancer Social History Communication Ability: Impaired Beliefs That Will Affect Care: None marital status: marital status details: Current Living Situation: Spouse Current Living Situation Comment: Jaycee Berry current occupational status: retired 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 Other Information That Helps Us Care for You: No other: 2 sons Feels Safe at Home: Declines to Answer and Hesitant to Answer Smoking Status: Never smoker Hx Alcohol Use: No Hx Substance Use: No Review of Systems Unobtainable due to cognitive status Physical Exam Vital Signs (Past 24 Hours): Last Vital Signs Temp 36.5 C 09/18/18 09:59 Pulse 75 09/18/18 10:48 Resp 18 09/18/18 10:48 BP 200/147 H 09/18/18 10:48 Pulse Ox 98 09/18/18 10:48 Constitutional: average body habitus and + altered mental status (largely nonverbal; does not follow commands; laying in position); no acute distress and not ill appearing Eyes: bletharitis of eyelids b/l; PERRL ENMT: Ears: + EAC abnormality (cerumen impaction b/l) poor dentition, MM slightly dry; unable to visualize posterior pharynx due to inability to follow commands or insert tongue depressor Neck: trachea midline, no thyromegaly Respiratory: normal respiratory effort, lungs clear to auscultation Cardiovascular: Rate/Rhythm: regular rate and regular rhythm Heart Sounds: normal S1 and normal S2; no murmur Vessels: posterior tibial pulses present and dorsalis pedis pulses present; no JVD Extremities: + pedal edema (1-2+ b/l -- appears chronic (lymphedema appearance)) Gastrointestinal (Abdomen): normal bowel sounds, soft, nontender, no hepatosplenomegaly Inspection/Auscultation: + abdomen distended (mild) palpable stool present lower abdomen HINA - done in presence of nursing staff - no impaction, no masses Musculoskeletal: no obvious joint deformities Skin: stasis changes of b/l legs (shins); severe diaper dermatitis in groin, vulvar region with extension to buttocks; erythematous, scaly/crusty in spots Neurologic: deep tendon reflexes 2+ bilaterally and moves all extremities (spontanously); no focal motor deficits (nothing apparent) lying in position Psychiatric: Orientation: alert; + not oriented x 3 speech is unint elligible Lymphatic: no cervical lymphadenopathy Results & Data Laboratory Results Laboratory Results - last 24 hr 09/18/18 09/18/18 09/18/18 10:05 10:05 10:05 WBC 8.20 RBC 4.63 Hgb 14.7 Hct 43.4 MCV 93.7 MCH 31.7 MCHC 33.9 RDW Std Deviation 50.2 H RDW Coeff of Patrick 14.7 H Plt Count 281 MPV 9.8 Immature Gran % (Auto) 1.0 Neut % (Auto) 63.5 Lymph % (Auto) 21.2 Eddy % (Auto) 12.1 Eos % (Auto) 2.0 Baso % (Auto) 0.2 Immature Gran # (Auto) 0.08 H Neut # (Auto) 5.21 Lymph # (Auto) 1.74 Eddy # (Auto) 0.99 H Eos # (Auto) 0.16 Baso # (Auto) 0.02 PT INR APTT PTT Ratio Sodium 139 Potassium 4.2 Chloride 104 Carbon Dioxide 29 Anion Gap 5.0 BUN 11 Creatinine 0.86 Est Cr Clr Drug Dosing 44.1 Est GFR ( Amer) 73.9 Est GFR (Non-Af Amer) 63.8 BUN/Creatinine Ratio 12.5 Glucose 123 H Calcium 9.7 Magnesium 2.5 H Total Bilirubin 0.6 AST 19 ALT 17 Alkaline Phosphatase 149 H Troponin I < 0.015 Total Protein 8.7 H Albumin 3.6 Globulin 5.1 H Albumin/Globulin Ratio 0.7 L Lipase 80 TSH 57.000 H Urine Color Urine Appearance Urine pH Ur Specific [place] Urine Protein Urine Glucose (UA) Urine Ketones Urine Blood Urine Nitrite Urine Bilirubin Urine Urobilinogen Ur Leukocyte Esterase Urine WBC (Auto) Urine RBC (Auto) U Hyaline Cast (Auto) U Epithel Cells (Auto) Urine Bacteria (Auto) Calcium Oxalate Crystal Urine Mucus 09/18/18 09/18/18 10:05 11:51 WBC RBC Hgb Hct MCV MCH MCHC RDW Std Deviation RDW Coeff of Patrick Plt Count MPV Immature Gran % (Auto) Neut % (Auto) Lymph % (Auto) Eddy % (Auto) Eos % (Auto) Baso % (Auto) Immature Gran # (Auto) Neut # (Auto) Lymph # (Auto) Eddy # (Auto) Eos # (Auto) Baso # (Auto) PT 10.6 INR 1.0 APTT 31.2 H PTT Ratio 1.2 Sodium Potassium Chloride Carbon Dioxide Anion Gap BUN Creatinine Est Cr Clr Drug Dosing Est GFR ( Amer) Est GFR (Non-Af Amer) BUN/Creatinine Ratio Glucose Calcium Magnesium Total Bilirubin AST ALT Alkaline Phosphatase Troponin I Total Protein Albumin Globulin Albumin/Globulin Ratio Lipase TSH Urine Color Yellow Urine Appearance Cloudy H Urine pH 7.5 Ur Specific [place] 1.033 H Urine Protein Negative Urine Glucose (UA) Negative Urine Ketones Trace H Urine Blood Negative Urine Nitrite Positive H Urine Bilirubin Negative Urine Urobilinogen Negative Ur Leukocyte Esterase Trace H Urine WBC (Auto) 10-30 H Urine RBC (Auto) 0-4 U Hyaline Cast (Auto) 0 U Epithel Cells (Auto) >30 H Urine Bacteria (Auto) 4+ H Calcium Oxalate Crystal Present H Urine Mucus Present H Diagnostic Findings CT abd/pelvis - PRESSION: 1. Small bilateral pleural effusions with bibasilar atelectatic change. 2. Fixed hiatal hernia. 3. Increased colonic fecal load consistent with fecal stasis. 4. Mild nonobstructive reactive small bowel ileus. Code Status & VTE Plan Code Status level 5 DNR per VTE Prophylaxis Plan VTE Prophylaxis will be ordered: Yes (1) UTI (urinary tract infection) Hematuria presence: without hematuria Urinary tract infection type: acute cystitis Qualified Code(s): N30.00 - Acute cystitis without hematuria (2) Dementia Dementia behavioral disturbance: with behavioral disturbance Dementia type: unspecified type Qualified Code(s): F03.91 - Unspecified dementia with behavioral disturbance (3) Failure to thrive Failure to thrive age range: in adult Qualified Code(s): R62.7 - Adult failure to thrive (4) Hypothyroidism Hypothyroidism type: acquired Qualified Code(s): E03.9 - Hypothyroidism, unspecified (5) Constipation Constipation type: unspecified constipation type Qualified Code(s): K59.00 - Constipation, unspecified
[2018-09-18 12:52] LABS: Calcium Oxalate Crystals Urine Present (None Prsent); Mucus Urine Present (None Prsent); RBC Urine Automated 0-4 /hpf (0-4)
[2018-09-18 12:54] LABS: Cast Urine Automated 0 /lpf (0-5)
[2018-09-18] MEDS ORDERED: HALOPERIDOL LACTATE 5 MG/ML 1 ML VIAL IM PRN (14:30)
[2018-09-18] MEDS ORDERED: ONDANSETRON INJ 2 MG/ML 2 ML VIAL IV PRN (14:30)
[2018-09-18] MEDS ORDERED: BISACODYL 10 MG SUPP PR STA (14:30)
[2018-09-18] MEDS ORDERED: ACETAMINOPHEN 325 MG TAB PO PRN (14:30)
[2018-09-18] MEDS: SODIUM CHLORIDE 0.9% 1000ML 1,000 ML IV SCH (15:08)
[2018-09-18] MEDS: cefTRIAXone SODIUM 1,000 MG in DEXTROSE 5% 50 ML IV SCH (16:08)
[2018-09-18 16:13] LABS: Partial Thromboplastin Ratio 1.2; Partial Thromboplastin Time 31.2 Seconds (21.0-31.0); Prothrombin Time 10.6 Seconds (9.0-12.0)
[2018-09-18] MEDS: BISACODYL 5 MG TABEC PO SCH (16:13)
[2018-09-18] MEDS: FLUCONAZOLE 100 MG TAB PO SCH (16:16)
[2018-09-18] MEDS: NYSTATIN POWDER 15GM BTL EXT SCH ×2 (16:18→21:28)
[2018-09-18] MEDS: NIFEdipine EXTENDED REL 30 MG TABCR PO SCH (16:18)
[2018-09-18] MEDS: ASCORBIC ACID 500 MG TAB PO SCH (16:21)
[2018-09-18] MEDS: CEROVITE ADV FORMULA TAB PO SCH (16:21)
[2018-09-18] MEDS: ZINC SULFATE 220 MG CAPSULE PO SCH (16:21)
[2018-09-18] MEDS ORDERED: PNEUMOCOCCAL POLYSACCHARIDES 25 MCG/0.5 ML VIAL/SYR IM ONE (18:15)
[2018-09-18] MEDS ORDERED: PNEUMOCOCCAL ADMINISTRATION CHARGE ONE (18:15)
[2018-09-18] MEDS ORDERED: INFLUENZA VIRUS QUAD VACCINE 0.5 ML SYR IM ONE (18:15)
[2018-09-18] MEDS ORDERED: INFLUENZA ADMINISTRATION CHARGE ONE (18:15)
[2018-09-18] MEDS: LEVOTHYROXINE SODIUM 25 MCG TABLET PO SCH (18:30)
[2018-09-18] MEDS: ERYTHROMYCIN OP OINT 5 MG/GM 3.5 GM TUBE OP SCH (21:27)
[2018-09-18] MEDS: POLYETHYLENE (MIRALAX) 17 GM PACK PO SCH (21:28)
[2018-09-18] MEDS: HEPARIN SOD 5,000 UNIT/0.5 ML VIAL SQ SCH (21:28)
[2018-09-19] MEDS: SODIUM CHLORIDE 0.9% 1000ML 1,000 ML IV SCH (03:01)
[2018-09-19] MEDS: LEVOTHYROXINE SODIUM 25 MCG TABLET PO SCH (07:04)
[2018-09-19] MEDS: FLUCONAZOLE 100 MG TAB PO SCH (07:30)
[2018-09-19] MEDS: POLYETHYLENE (MIRALAX) 17 GM PACK PO SCH ×2 (07:30→21:38)
[2018-09-19] MEDS: ZINC SULFATE 220 MG CAPSULE PO SCH (07:30)
[2018-09-19] MEDS: CEROVITE ADV FORMULA TAB PO SCH (07:30)
[2018-09-19] MEDS: ASCORBIC ACID 500 MG TAB PO SCH (07:30)
[2018-09-19] MEDS: NIFEdipine EXTENDED REL 30 MG TABCR PO SCH (07:30)
[2018-09-19] MEDS: HEPARIN SOD 5,000 UNIT/0.5 ML VIAL SQ SCH ×2 (07:31→21:38)
[2018-09-19] MEDS: BISACODYL 5 MG TABEC PO SCH (07:31)
[2018-09-19] MEDS: NYSTATIN POWDER 15GM BTL EXT SCH ×3 (07:31→21:39)
[2018-09-19] MEDS: cefTRIAXone SODIUM 1,000 MG in DEXTROSE 5% 50 ML IV SCH (12:49)
--- NOTE | 2018-09-19 14:18 | Hospitalist Progress Note ---
Date of Service September 19, 2018 Assessment & Plan (1) Constipation: CT a/p on 09/18 showed fecal impaction. No stool in rectal vault per admitting provider to disimpact; higher in sigmoid colon. Likely exacerbated by hypothroidism. - Continue bowel regimen with stool softener, motility agent, and osmotic agent (2) Ileus, unspecified: Due to constipation. - See 'constipation' above re: details for Rx. - Full liquid diet and then advance as tolerated. (3) Hypothyroidism: TSH/FT4 on 09/18 was 57/0.31. Could easily be contributing to skin issues, constipation, and worsening mental status. - Levothyroxine PO 75 mcg (Started at 1.6 mcg/kg/day.) - Repeat TSH in 6 weeks (4) Dementia: Advanced/severe. - PT/OT/speech - CM - Haldol IM PRN - Pt's told admitting provider that he doesn't necessarily want her placed in SNF but we are concerned her hygiene and state of health - Palliative care (5) Elevated BP without diagnosis of hypertension: reports no h/o HTN, but BPs were high on admission. (systolics 170s to 200). - Started nifedipine xr 30mg daily on admission - Follow BP (6) Groin rash: Severe diaper dermatitis. Likely with at least some yeast component. - Fluconazole 100mg PO daily x 7-10 days - Nystatin powder TID to groin and under breasts - Wound care consult appreciated (7) UTI (urinary tract infection): UA on 09/18 showed signs of infection. Unable to determine any symptoms given her mental status. - Will treat with ceftriaxone x 3 days - Follow culture (8) Eyelid disorder: Bletharitis b/l. - Continue erythromycin eye ointment QHS (9) Failure to thrive: Due to dementia and severe hypothyroidism. - See above plans (10) DVT prophylaxis: Heparin 5000 units BID I spent 35 minutes counseling the patient and her son regarding the current state, treatment course, and prognosis of his/her disease, including her constipation, hypothyroidism, and dementia. Subjective 78yo F w/ hx of hypothyroidism who presents with constipation. Unable to complete review of systems due to mental status. Patient say random words in response to questions and will not nod or shake head. Physical Exam Vital Signs (Past 24 Hours): Last Vital Signs Temp 36.9 C 09/18/18 14:05 Pulse 88 09/19/18 07:36 Resp 22 09/19/18 07:36 BP 162/86 H 09/19/18 12:51 Pulse Ox 100 09/18/18 14:05 Constitutional: average body habitus and + altered mental status (largely nonverbal; does not follow commands; laying in position); no acute distress and not ill appearing Neck: trachea midline, no thyromegaly Respiratory: normal respiratory effort, lungs clear to auscultation Cardiovascular: Rate/Rhythm: regular rate and regular rhythm Heart Sounds: normal S1 and normal S2; no murmur Vessels: no JVD Gastrointestinal (Abdomen): normal bowel sounds, soft, nontender, no hepatosplenomegaly Inspection/Auscultation: + abdomen distended (mild) Neurologic: moves all extremities (spontanously); no focal motor deficits (nothing apparent) Psychiatric: Orientation: alert; + not oriented x 3 Lymphatic: no cervical lymphadenopathy (1) UTI (urinary tract infection) Hematuria presence: without hematuria Urinary tract infection type: acute cystitis Qualified Code(s): N30.00 - Acute cystitis without hematuria (2) Dementia Dementia behavioral disturbance: with behavioral disturbance Dementia type: unspecified type Qualified Code(s): F03.91 - Unspecified dementia with behavioral disturbance (3) Failure to thrive Failure to thrive age range: in adult Qualified Code(s): R62.7 - Adult failure to thrive (4) Hypothyroidism Hypothyroidism type: acquired Qualified Code(s): E03.9 - Hypothyroidism, unspecified (5) Constipation Constipation type: unspecified constipation type Qualified Code(s): K59.00 - Constipation, unspecified
[2018-09-19] MEDS: ERYTHROMYCIN OP OINT 5 MG/GM 3.5 GM TUBE OP SCH (21:37)
[2018-09-19] MEDS: SENNA 8.6 MG TAB PO SCH (21:39)
[2018-09-20] MEDS: LEVOTHYROXINE SODIUM 75 MCG TABLET PO SCH (05:45)
[2018-09-20 08:35] LABS: BUN Creatinine Ratio 9.4 (10-20); Calcium 8.7 mg/dl (8.5-10.1); Creatinine Clr Calc Pharmacy 48.1 ml/min; Est GFR (African American) 81.9; Est GFR (Non-African American) 70.7; Magnesium 1.9 mg/dl (1.8-2.4); Phosphorus 2.6 mg/dl (2.5-4.9); Potassium 3.8 mmol/L (3.5-5.1)
[2018-09-20] MEDS: POLYETHYLENE (MIRALAX) 17 GM PACK PO SCH ×2 (09:49→21:30)
[2018-09-20] MEDS: SENNA 8.6 MG TAB PO SCH ×2 (09:49→21:32)
[2018-09-20] MEDS: CEROVITE ADV FORMULA TAB PO SCH (09:50)
[2018-09-20] MEDS: ASCORBIC ACID 500 MG TAB PO SCH (09:50)
[2018-09-20] MEDS: FLUCONAZOLE 100 MG TAB PO SCH (09:50)
[2018-09-20] MEDS: ZINC SULFATE 220 MG CAPSULE PO SCH (09:50)
[2018-09-20] MEDS: BISACODYL 5 MG TABEC PO SCH (09:51)
[2018-09-20] MEDS: HEPARIN SOD 5,000 UNIT/0.5 ML VIAL SQ SCH ×2 (09:51→21:30)
[2018-09-20] MEDS: NYSTATIN POWDER 15GM BTL EXT SCH ×3 (09:51→21:31)
[2018-09-20] MEDS: NIFEdipine EXTENDED REL 30 MG TABCR PO SCH (10:13)
[2018-09-20] MEDS: cefTRIAXone SODIUM 1,000 MG in DEXTROSE 5% 50 ML IV SCH (13:34)
[2018-09-20] MEDS: AMLODIPINE BESYLATE 5 MG TAB PO SCH (13:34)
--- NOTE | 2018-09-20 15:51 | Hospitalist Progress Note ---
Date of Service September 20, 2018 Assessment & Plan (1) Constipation: CT a/p on 09/18 showed fecal impaction. No stool in rectal vault per admitting provider to disimpact; higher in sigmoid colon. Likely exacerbated by hypothroidism. - Had a few small BMs on 09/19, but nothing on 09/20 - Continue bowel regimen with stool softener, motility agent, and osmotic agent (2) Ileus, unspecified: Due to constipation. - See 'constipation' above re: details for Rx. - Full liquid diet and then advance as tolerated. (3) Hypothyroidism: TSH/FT4 on 09/18 was 57/0.31. Could easily be contributing to skin issues, constipation, and worsening mental status. - Levothyroxine PO 75 mcg (Started at 1.6 mcg/kg/day.) - Repeat TSH in 6 weeks (4) Dementia: Advanced/severe. - PT/OT/speech - CM - Haldol IM PRN - Discussed at length with son on 09/19. Per son, he and his brother both stop in 2-4x/day to help. They had home health, but felt it was not very helpful. Open to hospice options. - Palliative care consult (5) Elevated BP without diagnosis of hypertension: reports no h/o HTN, but BPs were high on admission. (Systolics 170s to 200). - Started nifedipine xr 30mg daily on admission, but cannot crush this, and she cannot take whole pills. - Amlodpine started on 09/20 (6) Groin rash: Severe diaper dermatitis. Likely with at least some yeast component. - Fluconazole 100mg PO daily x 7 days (End date: 09/24) - Nystatin powder TID to groin and under breasts - Wound care consult appreciated (7) UTI (urinary tract infection): UA on 09/18 showed signs of infection. Culture grew moseley-sensitive E. coli. Unable to determine any symptoms given her mental status. No fever, no leukocytosis, no vital sign changes. - Ceftriaxone x 3 days - Last dose given on 09/20 - No further treatment needed (8) Eyelid disorder: Bletharitis b/l. - Continue erythromycin eye ointment QHS (9) Failure to thrive: Due to dementia and severe hypothyroidism. - See above plans (10) DVT prophylaxis: Heparin 5000 units BID Subjective 78yo F w/ hx of hypothyroidism who presents with constipation. Unable to complete review of systems due to mental status. Patient say random words in response to questions and will not nod or shake head. Physical Exam Vital Signs (Past 24 Hours): Last Vital Signs Temp 36.4 C L 09/20/18 07:26 Pulse 86 09/20/18 07:26 Resp 16 09/20/18 07:26 BP 185/82 H 09/20/18 07:26 Pulse Ox 100 09/20/18 07:26 Constitutional: average body habitus and + altered mental status (largely nonverbal; does not follow commands; laying in position); no acute distress and not ill appearing Neck: trachea midline, no thyromegaly Respiratory: normal respiratory effort, lungs clear to auscultation Cardiovascular: Rate/Rhythm: regular rate and regular rhythm Heart Sounds: normal S1 and normal S2; no murmur Vessels: no JVD Gastrointestinal (Abdomen): normal bowel sounds, soft, nontender, no hepatosplenomegaly Neurologic: moves all extremities (spontanously); no focal motor deficits (nothing apparent) Psychiatric: Orientation: alert; + not oriented x 3 Lymphatic: no cervical lymphadenopathy (1) Constipation Constipation type: unspecified constipation type Qualified Code(s): K59.00 - Constipation, unspecified (2) Hypothyroidism Hypothyroidism type: acquired Qualified Code(s): E03.9 - Hypothyroidism, unspecified (3) Dementia Dementia type: unspecified type Dementia behavioral disturbance: with behavioral disturbance Qualified Code(s): F03.91 - Unspecified dementia with behavioral disturbance (4) UTI (urinary tract infection) Urinary tract infection type: acute cystitis Hematuria presence: without hematuria Qualified Code(s): N30.00 - Acute cystitis without hematuria (5) Failure to thrive Failure to thrive age range: in adult Qualified Code(s): R62.7 - Adult failure to thrive
[2018-09-20] MEDS: ERYTHROMYCIN OP OINT 5 MG/GM 3.5 GM TUBE OP SCH (21:30)
[2018-09-21] MEDS: LEVOTHYROXINE SODIUM 75 MCG TABLET PO SCH (05:55)
[2018-09-21 07:19] LABS: Calcium 8.5 mg/dl (8.5-10.1); Creatinine Clr Calc Pharmacy 61.2 ml/min; Est GFR (African American) 98.7; Est GFR (Non-African American) 85.2; Magnesium 2.2 mg/dl (1.8-2.4); Phosphorus 2.3 mg/dl (2.5-4.9); Potassium 3.1 mmol/L (3.5-5.1)
[2018-09-21] MEDS: BISACODYL 5 MG TABEC PO SCH ×2 (08:02→13:12)
[2018-09-21] MEDS: FLUCONAZOLE 100 MG TAB PO SCH ×2 (08:02→13:12)
[2018-09-21] MEDS: CEROVITE ADV FORMULA TAB PO SCH ×2 (08:02→13:12)
[2018-09-21] MEDS: SENNA 8.6 MG TAB PO SCH ×3 (08:03→20:40)
[2018-09-21] MEDS: NYSTATIN POWDER 15GM BTL EXT SCH ×3 (08:03→20:39)
[2018-09-21] MEDS: AMLODIPINE BESYLATE 5 MG TAB PO SCH ×2 (08:03→13:12)
[2018-09-21] MEDS: ZINC SULFATE 220 MG CAPSULE PO SCH ×2 (08:04→13:13)
[2018-09-21] MEDS: ASCORBIC ACID 500 MG TAB PO SCH ×2 (08:04→13:13)
[2018-09-21] MEDS: POLYETHYLENE (MIRALAX) 17 GM PACK PO SCH ×2 (08:04→20:39)
[2018-09-21] MEDS: HEPARIN SOD 5,000 UNIT/0.5 ML VIAL SQ SCH ×2 (08:05→20:41)
[2018-09-21] MEDS: POTASSIUM CHLORIDE 10 MEQ TABCR PO STA ×2 (09:45→13:13)
[2018-09-21] MEDS: POTASSIUM CHLORIDE / WTR 10 MEQ/100 ML PLCT IV SCH ×2 (09:45→11:04)
--- NOTE | 2018-09-21 11:07 | Hospitalist Progress Note ---
Date of Service September 21, 2018 Assessment & Plan (1) Constipation: (2) Ileus, unspecified: (3) Hypothyroidism: (4) Dementia: (5) Elevated BP without diagnosis of hypertension: (6) Groin rash: (7) UTI (urinary tract infection): (8) Eyelid disorder: (9) Failure to thrive: (10) DVT prophylaxis: 78yo F w/ hx of hypothyroidism admitted on September 20, 2018 because of constipation. Likely failure to thrive Constipation per CT studies Generalized weakness Possible dementia Hypothyroidism TSH/FT4 on 09/18 was 57/0.31. Could easily be contributing to skin issues, constipation, and worsening mental status. Continue levothyroxine PO 75 mcg (Started at 1.6 mcg/kg/day.) Repeat TSH in [address] a/p on 09/18 showed fecal impaction. No stool in rectal vault per admitting provider to disimpact; higher in sigmoid colon. Likely exacerbated by hypothroidism. Had a few small BMs on 09/19, but nothing on 09/20 Continue bowel regimen with stool softener, motility agent, and osmotic agent Ileus, unspecified: See above Accelerated hypertension, nifedipine xr changed to Amlodpine started on 09/20 PT/OT/speech, bottle caser for discharge plan Possible stage III sacral area decubitus prior to admission, groin rash: Severe diaper dermatitis. Likely with at least some yeast component. Continue fluconazole 100mg PO daily x 7 days (End date: 09/24) Continue nystatin powder TID to groin and under breasts Continue wound care consult appreciated Urinary tract infection which was demonstrated in UA on 09/18 showed signs of infection. Culture grew moseley-sensitive E. coli. Unable to determine any symptoms given her mental status. No fever, no leukocytosis, no vital sign changes. Has been on ceftriaxone x 3 days - Last dose given on 09/20 No further treatment needed Eyelid disorder, Bletharitis b/l. Continue erythromycin eye ointment QHS DVT prophylaxis: Heparin 5000 units BID Physical Exam Vital Signs (Past 24 Hours): Last Vital Signs Temp 36.4 C L 09/21/18 06:46 Pulse 87 09/21/18 06:46 Resp 17 09/21/18 06:46 BP 157/79 H 09/21/18 06:46 Pulse Ox 96 09/21/18 06:46 (1) Constipation Constipation type: unspecified constipation type Qualified Code(s): K59.00 - Constipation, unspecified (2) Hypothyroidism Hypothyroidism type: acquired Qualified Code(s): E03.9 - Hypothyroidism, unspecified (3) Dementia Dementia type: unspecified type Dementia behavioral disturbance: with behavioral disturbance Qualified Code(s): F03.91 - Unspecified dementia with behavioral disturbance (4) UTI (urinary tract infection) Urinary tract infection type: acute cystitis Hematuria presence: without hematuria Qualified Code(s): N30.00 - Acute cystitis without hematuria (5) Failure to thrive Failure to thrive age range: in adult Qualified Code(s): R62.7 - Adult failure to thrive
--- NOTE | 2018-09-21 11:21 | Palliative Care Consultation ---
Date of Consultation September 21, 2018 Assessment & Plan (1) Palliative care encounter: This is an 78 year old patient who has severe end-stage dementia (FAST Scale 7f) who was transported to the [facility] via EMS from home after constipation that has been occurring over two weeks, decreased po intake, and a rash that has developed in her groin over the past few days. A CT scan that was obtained showed fecal impaction for which stool softeners, and a full liquid diet has been instituted. Patient lives at home with her , Ismael and one of their two sons. Palliative Care was consulted for Goals of Care discussion. -I saw patient in her room. She was sitting in her bed, with her neck forward and limbs mostly contracted, non-verbal or following commands. -I spoke with patient , Ismael on the phone who indicated that she has really declined over the past few months, mostly the last month or two and has become non-ambulatory and non-verbal. He does indicate that she still does take all medications. -During the day, she folds napkins, eats them, or stares at a magazine. -She has a sister in [facility] who do come down to care for him and give him 'breaks' -They have been 60 years this year and knows shes 'no longer his ' He states he is 'just caring for a body at this point' -They have used [facility] in the past for Home Health. We discussed at length, Hospice and I explained how their services could benefit. -From speaking with him, it seems the only pain she has is with changing her brief. I expressed that with her skin breakdown, additional care may be beneficial and he was receptive to a private care duty list. He stated that he is 'open to anyone who can help him' -He said she will not go to a custodial and home 'is the only option'. -Initially he stated she has a hospital bed, but she actually does sleep in a recliner, so I am not sure if there is a hospital bed. -I did go over a POLST form on the phone with Ismael and he will sign when he comes in to the hospital tonight or tomorrow. -I do think he realizes she is in the end stage of her illness, but I think it may take some time for him to accept this. -Continued support and conversation will be necessary. I would be in support of D/C all non-essential medications with full transition to comfort measures only. -Palliative Performance Scale: 10% (2) Dementia: -End stage dementia. -FAST scale 7f Dementia behavioral disturbance: with behavioral disturbance Dementia type: unspecified type Qualified Code(s): F03.91 - Unspecified dementia with behavioral disturbance (3) Skin breakdown: -Pt presented with stage 2 scaral breakdown likely r/t pt having incontinence briefs in place -appears to have poor perfusion, worry that breakdown will worsen (4) Failure to thrive: -Per patient , patient able to swallow without difficulty. -Per nursing, patient has not be able to take scheduled medications by mouth Failure to thrive age range: in adult Qualified Code(s): R62.7 - Adult failure to thrive (5) UTI (urinary tract infection): Hematuria presence: without hematuria Urinary tract infection type: acute cystitis Qualified Code(s): N30.00 - Acute cystitis without hematuria Supervising Physician Co-Signing Physician Notes Chart reviewed, pt seen and examined - no family at bedside Collaborated with MARICRUZ Wyatt Pt vocalized in response to voice, did not open eyes , was not able to nod or say yes or no to simple questions. Pt appears comfortable - is in a contracted position on her R side. PE: appears comfortable Resp: unlabored, clear BS CV: RR, no edema Neuro: non verbal Agree with above note, assessment and plan as per MARICRUZ Wyatt - will cont to follow to assist in medical decision making and coordination of care History of Present Illness Reason for Consultation: goals of care Requesting Physician: Dr. Delgado Attending Physician: Marco A Delgado MD, PhD, [facility] History of Present Illness This is an 78 year old patient who has severe end-stage dementia who was transported to the [facility] via EMS from home after constipation that has been occurring over two weeks, decreased po intake, and a rash that has developed in her groin over the past few days. A CT scan that was obtained showed fecal impaction for which stool softeners, and a full liquid diet has been instituted. Patient lives at home with her , Ismael and one of their two sons. Palliative Care was consulted for Goals of Care discussion. Please see Assessment and Plan for further details. Thank you kindly for consulting us on this unfortunate patient. We will follow and assist with decision making throughout her hospitalization. Allergies Allergy/AdvReac Type Severity Reaction Status Date / Time No Known Allergies Allergy Unverified 11/19/17 16:34 Home Medications Home Medications Medication Instructions Recorded Confirmed Type furosemide [Lasix] 20 mg PO DAILY PRN 09/18/18 09/18/18 History multivitamin 1 tab PO DAILY 09/18/18 09/18/18 History nystatin 1 applic TOPICAL BID 09/18/18 09/18/18 History Patient History Medical History Dementia (Chronic) Abdominal pain (Acute) Hypothyroidism Surgical History H/O breast biopsy Family History Mother Cancer Social History Communication Ability: Impaired Beliefs That Will Affect Care: None marital status: marital status details: Current Living Situation: Spouse Current Living Situation Comment: Jaycee Berry current occupational status: retired 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 Other Information That Helps Us Care for You: No other: 2 sons Feels Safe at Home: Declines to Answer and Hesitant to Answer Smoking Status: Never smoker Hx Alcohol Use: No Hx Substance Use: No Review of Systems Unable to obtain due to end-stage dementia Physical Exam Vital Signs (Past 24 Hours): Last Vital Signs Temp 36.4 C L 09/21/18 06:46 Pulse 87 09/21/18 06:46 Resp 17 09/21/18 06:46 BP 157/79 H 09/21/18 06:46 Pulse Ox 96 09/21/18 06:46 Physical Exam: Pt sitting in bed, leaning forward, bending at her hips and slouched (her typical position per ) Constitutional: + ill appearing, + thin, + disheveled and + malnourished Eyes: PERRL, conjunctivae normal, anicteric sclerae Some redness under left eye ENMT: external ear and nose normal, oropharynx normal Neck: trachea midline, no thyromegaly Respiratory: normal respiratory effort, lungs clear to auscultation symmetric chest movement Auscultation: + diminished lung sounds Cardiovascular: Rate/Rhythm: regular rate and regular rhythm Heart Sounds: normal S1 and normal S2 Extremities: no edema Gastrointestinal (Abdomen): normal bowel sounds, soft, nontender, no hepatosplenomegaly Skin: + ulcer (left dorsal part of foot with dime-sized circular wound with eschar), + crusts (on shins with deep grooves), + dry skin and + pallor stage 2 excoriation on sacral area with decreased perfusion Psychiatric: Orientation: + not alert, + not oriented x 3, + not oriented to person, + not oriented to place and + not oriented to time Eye Contact: + not good eye contact Speech: + mute (end-stage dementia - FAST scale 7F) Time Spent Midlevel Total time spent 70 minutes with > 50% of that time spent reviewing the chart, assessing the patient, discussing goals of care with pt on the phone Attending Spent 10 min in addition to above 70 min by TRAVEL ADMINISTRATOR for a total of 80 min with > 50 % of time spent at bedside assessing pt and coordinating care
[2018-09-21] MEDS: ERYTHROMYCIN OP OINT 5 MG/GM 3.5 GM TUBE OP SCH (20:40)
[2018-09-22] MEDS: LEVOTHYROXINE SODIUM 75 MCG TABLET PO SCH (06:06)
[2018-09-22] MEDS: CEROVITE ADV FORMULA TAB PO SCH ×2 (07:43→13:45)
[2018-09-22] MEDS: NYSTATIN POWDER 15GM BTL EXT SCH ×3 (07:43→20:30)
[2018-09-22] MEDS: FLUCONAZOLE 100 MG TAB PO SCH ×2 (07:43→13:44)
[2018-09-22] MEDS: AMLODIPINE BESYLATE 5 MG TAB PO SCH ×2 (07:43→13:46)
[2018-09-22] MEDS: ZINC SULFATE 220 MG CAPSULE PO SCH ×2 (07:44→13:46)
[2018-09-22] MEDS: HEPARIN SOD 5,000 UNIT/0.5 ML VIAL SQ SCH ×2 (07:44→20:31)
[2018-09-22] MEDS: ASCORBIC ACID 500 MG TAB PO SCH ×2 (07:44→13:46)
[2018-09-22] MEDS: SENNA 8.6 MG TAB PO SCH ×3 (07:44→20:36)
[2018-09-22] MEDS: POLYETHYLENE (MIRALAX) 17 GM PACK PO SCH ×3 (07:59→20:35)
[2018-09-22 08:14] LABS: Albumin Level 2.9 gm/dl (3.4-5.0); Calcium 8.7 mg/dl (8.5-10.1); Creatinine Clr Calc Pharmacy 67.8 ml/min; Est GFR (African American) 102.1; Est GFR (Non-African American) 88.1; Potassium 3.3 mmol/L (3.5-5.1)
[2018-09-22 08:17] LABS: Albumin Globulin Ratio 0.6 (0.9-2); Bilirubin,Total 0.5 mg/dl (0.2-1); Globulin 4.5 gm/dl (2.5-4.0); Phosphorus 2.2 mg/dl (2.5-4.9); Total Protein 7.4 gm/dl (6.4-8.2)
[2018-09-22] MEDS ORDERED: POTASSIUM PHOS 3 MMOL/1 ML INFUSION IV STA (08:31)
[2018-09-22] MEDS ORDERED: POTASSIUM PHOSPHATE 9 MMOL in SODIUM CHLORIDE 0.9% 250 ML IV ONE (09:00)
[2018-09-22] MEDS: POTASSIUM CHLORIDE / WTR 10 MEQ/100 ML PLCT IV SCH ×2 (10:04→11:07)
--- NOTE | 2018-09-22 10:30 | Hospitalist Progress Note ---
Date of Service September 22, 2018 Assessment & Plan (1) Constipation: (2) Ileus, unspecified: (3) Hypothyroidism: TSH/FT4 on 09/18 was 57/0.31. Could easily be contributing to skin issues, constipation, and worsening mental status. - Levothyroxine PO 75 mcg (Started at 1.6 mcg/kg/day.) - Repeat TSH in 6 weeks (4) Dementia: Advanced/severe. - PT/OT/speech - CM - Haldol IM PRN - Discussed at length with son on 09/19. Per son, he and his brother both stop in 2-4x/day to help. They had home health, but felt it was not very helpful. Open to hospice options. - Palliative care consult (5) Elevated BP without diagnosis of hypertension: (6) Groin rash: (7) UTI (urinary tract infection): (8) Eyelid disorder: (9) Failure to thrive: (10) DVT prophylaxis: 78yo F w/ hx of hypothyroidism admitted on September 20, 2018 because of constipation. Likely failure to thrive Constipation per CT studies Generalized weakness Possible severe dementia Hypothyroidism, TSH/FT4 on 09/18 was 57/0.31. may contributing to skin issues, constipation, and worsening mental status. Continue levothyroxine PO 75 mcg (Started at 1.6 mcg/kg/day.) Repeat TSH in [address] a/p on 09/18 showed fecal impaction. No stool in rectal vault per admitting provider to disimpact; higher in sigmoid colon. Likely exacerbated by hypothroidism. Had a few small BMs on 09/21 Continue bowel regimen with stool softener, motility agent, and osmotic agent Ileus, unspecified: See above Accelerated hypertension, nifedipine xr changed to Amlodpine started on 09/20, improved Possible stage III sacral area decubitus prior to admission, groin rash: Severe diaper dermatitis. Likely with at least some yeast component. Continue fluconazole 100mg PO daily x 7 days (End date: 09/24) Continue nystatin powder TID to groin and under breasts Continue wound care Urinary tract infection which was demonstrated in UA on 09/18 showed signs of infection. Culture grew moseley-sensitive E. coli. Unable to determine any symptoms given her mental status. No fever, no leukocytosis, no vital sign changes. Has been on ceftriaxone x 3 days - Last dose given on 09/20 No further treatment needed Eyelid disorder, Bletharitis b/l. Today seems better , continue erythromycin eye ointment QHS patient is deconditioning, severe dementia, very frail, home hospice care would be the best choice, will work with the pillowcase cutter and palliative care continue for discharge plan, possible discharge home tomorrow if the care goal can be setting up DVT prophylaxis: Heparin 5000 units BID Subjective Patient is sleeping, not eating drinking, IV fluid is going on, she is in rest and comfortable Not able to get review of system Physical Exam Vital Signs (Past 24 Hours): Last Vital Signs Temp 36.5 C 09/22/18 08:07 Pulse 88 09/22/18 08:07 Resp 20 09/22/18 08:07 BP 158/80 H 09/22/18 08:07 Pulse Ox 97 09/22/18 08:07 Physical Exam: Constitutional: in rest sleep , nonverbal, frail chronically ill looking, no acute distress and not ill appearing Neck: trachea midline, no thyromegaly Respiratory: normal respiratory effort, lungs clear to auscultation Cardiovascular: Rate/Rhythm: regular rate and regular rhythm Heart Sounds: normal S1 and normal S2; no murmur Vessels: no JVD Gastrointestinal : normal bowel sounds, soft, nontender, no hepatosplenomegaly Neurologic: moves all extremities, no focal motor deficits Psychiatric, not oriented Results & Data Laboratory Results Laboratory Results - last 24 hr 09/22/18 07:29 Sodium 140 Potassium 3.3 L Chloride 107 Carbon Dioxide 25 Anion Gap 7.0 BUN 8 Creatinine 0.56 L Est Cr Clr Drug Dosing 67.8 Est GFR ( Amer) 102.1 Est GFR (Non-Af Amer) 88.1 BUN/Creatinine Ratio 14.0 Glucose 114 H Calcium 8.7 Phosphorus 2.2 L Magnesium 2.0 Total Bilirubin 0.5 AST 50 H ALT 27 Alkaline Phosphatase 134 H Total Protein 7.4 Albumin 2.9 L Globulin 4.5 H Albumin/Globulin Ratio 0.6 L (1) UTI (urinary tract infection) Hematuria presence: without hematuria Urinary tract infection type: acute cystitis Qualified Code(s): N30.00 - Acute cystitis without hematuria (2) Dementia Dementia behavioral disturbance: with behavioral disturbance Dementia type: unspecified type Qualified Code(s): F03.91 - Unspecified dementia with behavioral disturbance (3) Failure to thrive Failure to thrive age range: in adult Qualified Code(s): R62.7 - Adult failure to thrive (4) Hypothyroidism Hypothyroidism type: acquired Qualified Code(s): E03.9 - Hypothyroidism, unspecified (5) Constipation Constipation type: unspecified constipation type Qualified Code(s): K59.00 - Constipation, unspecified
[2018-09-22] MEDS: FLUCONAZOLE 100 MG/50 ML BAG IV SCH (15:33)
[2018-09-22] MEDS: ERYTHROMYCIN OP OINT 5 MG/GM 3.5 GM TUBE OP SCH (20:30)
[2018-09-23 03:20] VITALS: TEMP 97.3
[2018-09-23] MEDS: LEVOTHYROXINE SODIUM 75 MCG TABLET PO SCH (06:18)
[2018-09-23 07:39] VITALS: BP 172/86; O2SAT 93
[2018-09-23] MEDS ORDERED: AMLODIPINE BESYLATE 5 MG TAB PO SCH (09:00)
[2018-09-23] MEDS: NYSTATIN POWDER 15GM BTL EXT SCH ×2 (09:38→14:26)
[2018-09-23] MEDS: FLUCONAZOLE 100 MG/50 ML BAG IV SCH (09:38)
[2018-09-23] MEDS: SENNA 8.6 MG TAB PO SCH (09:39)
[2018-09-23] MEDS: ZINC SULFATE 220 MG CAPSULE PO SCH (09:40)
[2018-09-23] MEDS: CEROVITE ADV FORMULA TAB PO SCH (09:40)
[2018-09-23] MEDS: HEPARIN SOD 5,000 UNIT/0.5 ML VIAL SQ SCH (09:40)
[2018-09-23] MEDS: POLYETHYLENE (MIRALAX) 17 GM PACK PO SCH (09:40)
[2018-09-23] MEDS: ASCORBIC ACID 500 MG TAB PO SCH (09:40)
[2018-09-23 09:58] LABS: BUN Creatinine Ratio 10.8 (10-20); Calcium 8.6 mg/dl (8.5-10.1); Creatinine Clr Calc Pharmacy 58.4 ml/min; Est GFR (African American) 97.2; Est GFR (Non-African American) 83.9; Potassium 3.5 mmol/L (3.5-5.1)
--- NOTE | 2018-09-23 10:25 | Hospitalist Progress Note ---
Date of Service September 23, 2018 Assessment & Plan (1) Constipation: (2) Ileus, unspecified: (3) Hypothyroidism: TSH/FT4 on 09/18 was 57/0.31. Could easily be contributing to skin issues, constipation, and worsening mental status. - Levothyroxine PO 75 mcg (Started at 1.6 mcg/kg/day.) - Repeat TSH in 6 weeks (4) Dementia: Advanced/severe. - PT/OT/speech - CM - Haldol IM PRN - Discussed at length with son on 09/19. Per son, he and his brother both stop in 2-4x/day to help. They had home health, but felt it was not very helpful. Open to hospice options. - Palliative care consult (5) Elevated BP without diagnosis of hypertension: (6) Groin rash: (7) UTI (urinary tract infection): (8) Eyelid disorder: (9) Failure to thrive: (10) DVT prophylaxis: 78yo F w/ hx of hypothyroidism admitted on September 20, 2018 because of constipation. Likely failure to thrive Constipation per CT studies Generalized weakness Possible severe dementia Hypothyroidism, TSH/FT4 on 09/18 was 57/0.31. may contributing to skin issues, constipation, and worsening mental status. Continue levothyroxine PO 75 mcg (Started at 1.6 mcg/kg/day.) Repeat TSH in [address] a/p on 09/18 showed fecal impaction. No stool in rectal vault per admitting provider to disimpact; higher in sigmoid colon. Likely exacerbated by hypothroidism. Had a few small BMs on 09/21 Continue bowel regimen with stool softener, motility agent, and osmotic agent Ileus, unspecified: See above Accelerated hypertension, nifedipine xr changed to Amlodpine started on 09/20, improved however not optimized yet, will increase amlodipine from 5 mg to 10 mg Possible stage III sacral area decubitus prior to admission, groin rash: Severe diaper dermatitis. Likely with at least some yeast component. Continue fluconazole 100mg PO daily x 7 days (End date: 09/24) Continue nystatin powder TID to groin and under breasts Continue wound care Urinary tract infection which was demonstrated in UA on 09/18 showed signs of infection. Culture grew moseley-sensitive E. coli. Unable to determine any symptoms given her mental status. No fever, no leukocytosis, no vital sign changes. Has been on ceftriaxone x 3 days - Last dose given on 09/20, No further treatment needed Eyelid disorder, Bletharitis b/l. seems better , continue erythromycin eye ointment QHS patient is deconditioning, severe dementia, very frail, home hospice care would be the best choice, will work with the case management coordinator and palliative care continue for discharge plan, and her want to home hospice care and he will need to talk to me, will talk to him more DVT prophylaxis: Heparin 5000 units BID Subjective Patient is same as yesterday, this morning was only eating a few bites, currently is sleeping, IV fluid is going on, she is in rest and comfortable Not able to get review of system Physical Exam Vital Signs (Past 24 Hours): Last Vital Signs Temp 36.3 C L 09/23/18 07:38 Pulse 81 09/23/18 07:38 Resp 16 09/23/18 07:38 BP 172/86 H 09/23/18 07:38 Pulse Ox 93 09/23/18 07:38 Physical Exam: Constitutional: in sleep, frail chronically ill looking, no acute distress Neck: trachea midline, no thyromegaly Respiratory: normal respiratory effort, lungs clear to auscultation Cardiovascular: Rate/Rhythm: regular rate and regular rhythm Heart Sounds: normal S1 and normal S2; no murmur Vessels: no JVD Gastrointestinal : normal bowel sounds, soft, nontender, no hepatosplenomegaly Neurologic: moves all extremities, no focal motor deficits Psychiatric, not oriented Sacral skin cancer stage III decubitus, which was prior to admission Results & Data Laboratory Results Laboratory Results - last 24 hr 09/23/18 09:23 Sodium 141 Potassium 3.5 Chloride 109 H Carbon Dioxide 25 Anion Gap 7.0 BUN 7 Creatinine 0.65 Est Cr Clr Drug Dosing 58.4 Est GFR ( Amer) 97.2 Est GFR (Non-Af Amer) 83.9 BUN/Creatinine Ratio 10.8 Glucose 107 H Calcium 8.6 Magnesium 2.0 (1) Constipation Constipation type: unspecified constipation type Qualified Code(s): K59.00 - Constipation, unspecified (2) Hypothyroidism Hypothyroidism type: acquired Qualified Code(s): E03.9 - Hypothyroidism, unspecified (3) Dementia Dementia type: unspecified type Dementia behavioral disturbance: with beha vioral disturbance Qualified Code(s): F03.91 - Unspecified dementia with behavioral disturbance (4) UTI (urinary tract infection) Urinary tract infection type: acute cystitis Hematuria presence: without hematuria Qualified Code(s): N30.00 - Acute cystitis without hematuria (5) Failure to thrive Failure to thrive age range: in adult Qualified Code(s): R62.7 - Adult failure to thrive
[2018-09-23] MEDS ORDERED: cefTRIAXone SODIUM 1,000 MG in DEXTROSE 5% 50 ML IV SCH (10:30)
[2018-09-23 10:42] VITALS: PULSE 82
--- NOTE | 2018-09-24 19:21 | Discharge Summary ---
Date of Service September 23, 2018 Admission HPI Per Admitting Provider 78yo female with advanced dementia and previous h/o hypothyroidism who presents from home via EMS with severe constipation and a severe rash in her groin area. Patient was awake but unable to speak during the visit due to her dementia and thus all information was gathered from her with whom she lives. I spoke with the by phone. reports 2+ weeks of inability to have a bowel movement despite giving her multiple doses of milk of magnesia. She was eating/drinking normally up until 2-3 days ago and then her oral intake was quite poor. No fevers, cough, shortness of breath, or emesis. states her groin rash has been present for 2-3 days. The patient has had pruritis from this. At baseline the patient has severe dementia. She stopped walking entirely about 1 week ago. She was walking on a limited basis with assistance (in her house only) about 1 month ago. She is largely nonverbal. When she does speak it is hard to understand/nonsensical. She sundowns frequently and has hallucinations per the . She is incontinent of urine. When asked about SNF placement the was not keen on this idea, stating "we provide all of her care." He voiced she is a DNR. Lastly, he mentioned she previously took synthroid several years ago but it was stopped when labs suggested her "thyroid was fine." She doesn't have h/o HTN. Principal Diagnosis no Discharge Data Allergies Allergy/AdvReac Type Severity Reaction Status Date / Time No Known Allergies Allergy Unverified 11/19/17 16:34 Consultations 09/18/18 12:03 ED Decision to Admit Stat 09/18/18 14:30 Consult Case Management - Discharge Planning Routine 09/19/18 14:58 Consult Palliative Care Routine Ordered Studies 09/18/18 10:01 CT abd pelvis IV con only Stat Hospital Course (1) Constipation: (2) Ileus, unspecified: (3) Hypothyroidism: (4) Dementia: (5) Elevated BP without diagnosis of hypertension: (6) Groin rash: (7) UTI (urinary tract infection): (8) Eyelid disorder: (9) Failure to thrive: (10) DVT prophylaxis: 78yo F w/ hx of hypothyroidism admitted on September 20, 2018 because of constipation. Likely failure to thrive Constipation per CT studies Generalized weakness Possible severe dementia Hypothyroidism, TSH/FT4 on 09/18 was 57/0.31. may contributing to skin issues, constipation, and worsening mental status. Continue levothyroxine PO 75 mcg (Started at 1.6 mcg/kg/day.) Repeat TSH in [address] a/p on 09/18 showed fecal impaction. No stool in rectal vault per admitting provider to disimpact; higher in sigmoid colon. Likely exacerbated by hypothroidism. Had a few small BMs on 09/21 Continue bowel regimen with stool softener, motility agent, and osmotic agent Ileus, unspecified: See above Accelerated hypertension, nifedipine xr changed to Amlodpine started on 09/20, improved however not optimized yet, will increase amlodipine from 5 mg to 10 mg Possible stage III sacral area decubitus prior to admission, groin rash: Severe diaper dermatitis. Likely with at least some yeast component. Continue fluconazole 100mg PO daily x 7 days (End date: 09/24) Continue nystatin powder TID to groin and under breasts Continue wound care Urinary tract infection which was demonstrated in UA on 09/18 showed signs of infection. Culture grew moseley-sensitive E. coli. Unable to determine any symptoms given her mental status. No fever, no leukocytosis, no vital sign changes. Has been on ceftriaxone x 3 days - Last dose given on 09/20, No further treatment needed Eyelid disorder, Bletharitis b/l. seems better , continue erythromycin eye ointment QHS patient is deconditioning, severe dementia, very frail, home hospice care would be the best choice, agreed, wanted to home hospice care need to continue levothyroxine PO 75 mcg (Started at 1.6 mcg/kg/day.) Repeat TSH in 6 weeks Continue bowel regimen with stool softener, start hospice care after arrivinging home DVT prophylaxis: Heparin 5000 units BID Subjective upon discharge Has been sleeping, in rest and comfortable Not able to get review of system Physical Exam at discharge Afebrile Constitutional: in sleep, frail chronically ill looking, no acute distress Neck: trachea midline, no thyromegaly Respiratory: normal respiratory effort, lungs clear to auscultation Cardiovascular: Rate/Rhythm: regular rate and regular rhythm Heart Sounds: normal S1 and normal S2; no murmur Vessels: no JVD Gastrointestinal : normal bowel sounds, soft, nontender, no hepatosplenomegaly Neurologic: moves all extremities, no focal motor deficits Psychiatric, not oriented Sacral skin cancer stage III decubitus, which was prior to admission Lab evaluation upon discharge: Total Time Total Time Spent Total Time Spent (In Minutes): 35 Total Time Includes: Examination of the Patient, Discharge Planning, Medication Reconciliation and Communication With Other Providers Discharge Plan Discharge Items Patient Disposition: Home - Home Health Services Reason For Visit: UTI, SEVERE CONSTIPATION, ADVANCED DEMENTIA Discharge Diagnosis: fail to thrive Condition: Serious Discharge Goals: Decrease discomfort Activity: As commented below Non-emergency contact: Primary Care Provider Call non-emergency contact if: you have any medication questions Follow-up/Referrals: Maryana Urrutia MD [Primary Care Provider] - Diet: Regular Addtl Provider Instructions: you likely have failure to thrive Hypothyroidism, Continue levothyroxine PO 75 mcg (Started at 1.6 mcg/kg/day.) Repeat TSH in 6 weeks Continue bowel regimen with stool softener, start hospice care after arrivinging home you need to follow up with your primary care physician in 1 week, - fall precaution - diet as instructed Prescriptions: New amlodipine [Norvasc] 5 mg Tablet 10 mg PO QAM 30 Days Qty: 60 RF: 0 levothyroxine [Synthroid] 75 mcg Tablet 75 mcg PO DAILYBB 30 Days Qty: 30 RF: 0 Continued multivitamin Tablet 1 tab PO DAILY RF: 0 nystatin 100,000 unit/gram Cream 1 applic TOPICAL BID RF: 0 Discontinued furosemide [Lasix] 20 mg Tablet 20 mg PO DAILY PRN (Reason: Fluid Retention) RF: 0 Stand-Alone Forms: [facility] Discharge Orders: Discharge Order (Routine); Ordered 09/23/18 Ordered By: Marco A Delgado Admission Data Admit Date/Time: 09/18/18 12:46 Attending Provider: Marco A Delgado Admit Provider: Judah Lee Primary Care Provider: Maryana Urrutia Other Providers: Dae Lion ; Renetta Arteaga Service: Medical Other Interventions: Discharge Summary Assessment (RN) Last Done: 09/23/18 10:35 DC Date/Time DO NOT enter until pt leaves facility: 09/23/18 16:40
== END 2018-09-23 16:40 | disposition home health service (06) | DRG 389 ==
LOC: ED 09:47 → 2W 12:46 → SUATTDRO 12:46 → 2W 13:50 → 4E 09-20 05:17

== ENCOUNTER 2023-08-21 16:11 | Inpatient (IN) ==
--- NOTE | 2023-08-21 16:20 | Emergency Department Note ---
Impression & Plan Wound of sacral region, Dementia, Hypothyroidism ED Provider Note Provider: Fritz Singleton MD DATE OF SERVICE: 08/21/2023 CHIEF COMPLAINT: Large wound HISTORY OF PRESENT ILLNESS: Patient is a 83-year-old female history of hypothyroidism and dementia presenting here today via ambulance from her home. Apparently wound care visited was concerned regarding a large wound on the patient's sacrum. Patient herself not a good historian. EMS states that she can bite at times and has been a bit irritable particular with them trying to take blood pressures or vitals. With EMS assistance moved her over to our stretcher. Patient's son later arrives and states his mother has been nonverbal for more than a year and probably has had a significant plan of the last 3 months. Was on hospice over years ago but no longer. Has not been to the doctor in quite some time given her dementia status and difficulty transporting. States he did take her to the [facility] clinic for evaluation yesterday but they elected to clean it and set them up with home health. Son often helps hold her up and notes she has had a few boils back there but more recently last week or 2 things have significantly worsened into this wound. PAST MEDICAL HISTORY: As noted above MEDICATIONS: Reviewed home medication list SOCIAL HISTORY: Lives at home with family PHYSICAL EXAM: GENERAL: alert in no acute distress on stretcher but irritable, unable to give me a history. Head: normocephalic and atraumatic EYES: No injection, discharge or icterus. NECK: Trachea midline. ENT: Mucous membranes pink and moist LUNGS: Airway patent. No retractions. Breath sounds clear with good air entry bilaterally. HEART: Regular rate and rhythm. No chest wall tenderness ABDOMEN: Soft and non-tender, without guarding or rebound. Back: With nursing assistance able to visualize an approximately 4 cm at least 3.5 cm deep sacral decubitus ulcer unstageable with brownish-black eschar quite foul-smelling SKIN: Acyanotic, warm, dry, without rashes EXTREMITIES: Without swelling, tenderness or deformity NEUROLOGICAL: No focal deficits moves all extremities. Poor memory and not oriented. Follows some simple commands. CONTINUOUS CARDIAC MONITORING: was ordered and showed a heart rate of 70s bpm in normal sinus rhythm Patient's laboratory studies and imaging reviewed. Differential includes Cellulitis, abscess, MRSA infection, DVT, necrotizing fasciitis, dermatitis, drug eruption, allergic reaction, as well as other pathologies. IMPRESSION/MEDICAL DECISION MAKING: Patient with what appears to be a large sacral decubitus ulcer. Surface culture taken from this. Blood culture sent. Will cover broadly with Zosyn and quite foul-smelling and believe likely some polymicrobial and anaerobic component. Will get a CT to assess for depth and other deeper involvement. Blood work here with a normal lactate I doubt this represents sepsis or septic shock. Not febrile. Not tachycardic or hypotensive. Patient does have a significant leukocytosis of 21 however. Patient without anemia or significant thrombocytopenia. Chemistries without significant abnormality and a normal creatinine given her poor muscle tone of 0.39. CRP is elevated consistent with likely localized infection but again I doubt this is septic shock. Given 500 cc of normal saline fluid bolus. Given her slight flame try to be careful avoid fluid overload. Will obtain again a CT scan to look for depth but doubt this involves bowel. Will bring into the hospital for further care. CT later returned with findings consistent with cellulitis and sacral decub as well as possibly some osteomyelitis localized to the area. Again will bring into the hospital for further care here. DIAGNOSIS: Sacral decubitus ulcer, dementia DISPOSITION: Hospitalist will evaluate Past Med/Surg History Medical History (Updated 08/21/23 @ 20:37 by Polly Knight PA-C) Hypothyroidism Abdominal pain Dementia Surgical History H/O breast biopsy Family History Mother Cancer Social History Smoking Status: Unknown if ever smoked Second Hand Exposure: No; Do You Dip or Chew Tobacco: No; Hx Alcohol Use: No Hx Substance Use: No Preferred Language: Venezuelan Communication Ability: Impaired Commercial Truck Driver Required: No Beliefs That Will Affect Care: None marital status: marital status details: Current Living Situation: Spouse Current Living Situation Comment: Jaycee Berry current occupational status: retired 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 How many Children do You have: 2 other: 2 sons Feels Safe at Home: Declines to Answer and Hesitant to Answer Assistive Devices: None Allergies Allergies Allergy/AdvReac Type Severity Reaction Status Date / Time bee venom protein (honey bee) Allergy localized Verified 08/21/23 19:25 swelling Penicillins Allergy Rash Verified 08/21/23 19:25 Sulfa (Sulfonamide Allergy Unknown Verified 08/21/23 19:25 Antibiotics) tomato Allergy tomato Verified 08/21/23 19:25 plant kevin cause rash Home Meds Home Medications Medication Instructions Recorded Confirmed No Known Home Medications 08/21/23 08/21/23 Results & Data (ED) Vital Signs Vital Signs - 24 hr 08/21/23 16:11 08/21/23 16:46 08/21/23 16:57 Temperature 36.5 C Temperature Source Axillary Pulse Rate 78 73 73 Pulse Rate [Apical] Pulse Rate from SpO2 Sensor 77 Respiratory Rate 21 16 Respiratory Effort / Characteristics Non-Labored Respiratory Depth Normal Respiratory Pattern Regular Blood Pressure 133/71 Blood Pressure [Left Arm] Blood Pressure Mean 91 Blood Pressure Mean [Left Arm] Pulse Oximetry 96 Oxygen Delivery Method Room Air Sepsis Recent Fever Within 48 Hours No Sepsis New/Unexplained Change in Mental Status N/A Sepsis Action Taken by Nursing No Action Required 08/21/23 17:00 08/21/23 17:30 08/21/23 18:00 Temperature Temperature Source Pulse Rate 77 70 63 Pulse Rate [Apical] Pulse Rate from SpO2 Sensor 69 Respiratory Rate 18 14 11 L Respiratory Effort / Characteristics Respiratory Depth Respiratory Pattern Blood Pressure Blood Pressure [Left Arm] Blood Pressure Mean Blood Pressure Mean [Left Arm] Pulse Oximetry Oxygen Delivery Method Sepsis Recent Fever Within 48 Hours Sepsis New/Unexplained Change in Mental Status Sepsis Action Taken by Nursing 08/21/23 18:48 08/21/23 19:58 Temperature Temperature Source Pulse Rate 67 Pulse Rate [Apical] 64 Pulse Rate from SpO2 Sensor Respiratory Rate 14 18 Respiratory Effort / Characteristics Non-Labored Spontaneous Respiratory Depth Normal Respiratory Pattern Blood Pressure 124/63 Blood Pressure [Left Arm] 111/54 L Blood Pressure Mean 83 Blood Pressure Mean [Left Arm] 73 Pulse Oximetry 96 Oxygen Delivery Method Room Air Sepsis Recent Fever Within 48 Hours Sepsis New/Unexplained Change in Mental Status Sepsis Action Taken by Nursing Laboratory Data 08/21/23 16:40 08/21/23 16:40 Lab Results 08/21/23 Range/Units 16:40 WBC 21.59 H (4.8-10.8) K/ul RBC 4.47 (4.20-5.40) M/uL Hgb 13.2 (12.0-16.0) g/dl Hct 42.5 (37.0-47.0) % MCV 95.1 (80.0-100.0) fL MCH 29.5 (25.0-34.0) pg MCHC 31.1 L (32.0-36.0) g/dL RDW Std Deviation 51.9 H (36.4-46.3) fL RDW Coeff of Patrick 15.0 H (11.5-14.5) % Plt Count 361 (130-400) K/uL MPV 10.1 (9.4-12.4) fL Immature Gran % (Auto) 1.6 % Neut % (Auto) 84.9 % Lymph % (Auto) 6.2 % Jerauld % (Auto) 6.8 % Eos % (Auto) 0.2 % Baso % (Auto) 0.3 % Neut # (Auto) 18.34 H (1.40-6.50) K/uL Lymph # (Auto) 1.33 (1.20-3.40) K/uL Jerauld # (Auto) 1.46 H (0.11-0.59) K/uL Eos # (Auto) 0.05 (0.00-0.50) K/uL Baso # (Auto) 0.07 (0.00-0.20) K/uL Immature Gran # (Auto) 0.34 H (0.01-0.20) K/uL Sodium 140 (136-145) mmol/L Potassium 3.8 (3.5-5.1) mmol/L Chloride 104 (98-107) mmol/L Carbon Dioxide 30 (21-32) mmol/L Anion Gap 6 (3-11) BUN 19 (6-23) mg/dl Creatinine 0.39 L (0.6-1.2) mg/dl Est Cr Clr Drug Dosing Not Reportable Est GFR ( Amer) 111.0 ml/min Est GFR (Non-Af Amer) 95.8 ml/min BUN/Creatinine Ratio 48.7 H (10-20) Glucose 116 H (70-99(Fasting)) mg/dl Lactate 1.6 (0.4-2.0) mmol/L Calcium 9.2 (8.6-10.3) mg/dl Total Bilirubin 0.8 (0.2-1.0) mg/dl Direct Bilirubin 0.2 (0-0.2) mg/dl AST 13 (13-39) U/L ALT 7 (7-52) U/L Alkaline Phosphatase 95 (34-104) U/L C-Reactive Protein 9.58 H (0-0.5) mg/dl Total Protein 7.2 (6.0-8.3) gm/dl Albumin 3.3 L (3.4-5.0) gm/dl TSH 26.800 H (0.300-4.500) uIu/ml Free T4 0.57 L (0.61-1.60) ng/dl Administered Medications Discontinued Medications Bisacodyl (Bisacodyl 10 Mg Supp) 10 mg CO NOW STA Stop: 08/21/23 20:21 Last Admin: 08/21/23 20:50 Dose: 10 mg Documented By: ROMAINE Piperacillin Sod/Tazobactam Sod (Zosyn) 4.5 gm in 100 mls @ 200 mls/hr IV NOW ONE Stop: 08/21/23 17:16 Last Infusion: 08/21/23 18:16 Dose: Infused Documented By: Admin: 08/21/23 17:39 Dose: 200 mls/hr Documented By: DYLAN Sodium Chloride (Nss) 500 mls @ 999 mls/hr IV .Q31M ONE Stop: 08/21/23 18:07 Last Infusion: 08/21/23 18:16 Dose: Infused Documented By: Admin: 08/21/23 17:39 Dose: 999 mls/hr Documented By: DYLAN Imaging Data Radiologist's Impression: Abdomen/Pelvis CT 08/21/23 16:[address] WITHOUT CONTRAST CT DOSE: 328.42 mGy.cm HISTORY: deep sacral wound TECHNIQUE: Multiaxial CT images of the abdomen and pelvis were performed without contrast. A dose lowering technique was utilized adhering to the principles of ALARA. COMPARISON STUDY: Abdomen and pelvis CT 09/18/2018. FINDINGS: Mild superior endplate compression fractures at T11 and L2 which appear to be subacute. Moderate to severe compression fractures at L1, L3, and L4 are likely chronic. The L4 compression fracture demonstrates up to 4 mm of retropulsion and mild central canal narrowing at this level. Sacral decubitus ulcer with a small of gas and infiltration surrounding the distal sacrum/coccyx. There is partial erosion of the distal sacrum/coccyx is consistent with an osteomyelitis. No loculated fluid collections to suggest an abscess. Mild dependent changes seen at the lung bases. No pneumoperitoneum. No pneumatosis. 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 No significant articular collapse. Trace pericardial effusion. There is a large hiatus hernia containing the majority of the stomach and the pancreatic tail. The unenhanced liver, gallbladder, spleen, adrenal glands, and kidneys are unremarkable. No renal stones or hydronephrosis. No retroperitoneal lymphadenopathy. Calcified plaque within the normal caliber abdominal aorta. Mild body wall edema. Mild pelvic floor collapse. No bladder wall thickening. Small calcifications within the uterus favor fibroids. The adnexa are unremarkable. Moderate rectal wall thickening. This is best seen on image 304. Suboptimal evaluation for bowel pathology due to the lack of intravenous and oral contrast. However, no evidence for a bowel obstruction. Moderate fecal retention. Colonic diverticulosis. No evidence for acute diverticulitis. IMPRESSION: 1. Sacral decubitus ulcer with a small of gas and infiltration surrounding the distal sacrum/coccyx. There is partial erosion of the distal sacrum/coccyx is consistent with an osteomyelitis. 2. Moderate rectal wall thickening consistent with a nonspecific proctitis. 3. Moderate fecal retention. 4. Large hiatus hernia. 5. Multiple subacute to chronic compression deformities within the lower thoracic and lumbar spine as described above. 6. Additional findings as described above. ACT 112: Negative or not required by law. Electronically signed by: Magan Christie M.D. 08/21/2023 7:22 PM Discharge Plan Visit Data Chief Complaint: Wound Stated Complaint: WOUND OF BUTT ED Provider: Firtz Singleton Discharge Problem: Wound of sacral region, Dementia, Hypothyroidism Patient Disposition: Being Evaluated by Hospitalist Forms Stand Alone Forms: [facility] Prescriptions Prescriptions: No Action No Known Home Medications Referrals Referrals: Maryana Urrutia MD [Physician] - Discharge Problem: Wound of sacral region Qualifiers: Encounter type: subsequent encounter Qualified Code(s): S31.000D - Unspecified open wound of lower back and pelvis without penetration into retroperitoneum, subsequent encounter Dementia Qualifiers: Dementia type: unspecified type Hypothyroidism Qualifiers: Hypothyroidism type: unspecified Qualified Code(s): E03.9 - Hypothyroidism, unspecified
[2023-08-21 16:59] LABS: Basophils # (auto) 0.07 K/uL (0.00-0.20); Basophils % (auto) 0.3 %; Eosinophils # (auto) 0.05 K/uL (0.00-0.50); Eosinophils % (auto) 0.2 %; Hematocrit (blood only) 42.5 % (37.0-47.0); Hemoglobin 13.2 g/dl (12.0-16.0); Immature Granulocytes # (auto) 0.34 K/uL (0.01-0.20); Immature Granulocytes % (auto) 1.6 %; Lymphocytes # (auto) 1.33 K/uL (1.20-3.40); Lymphocytes % (auto) 6.2 %; Mean Corpuscular Hemoglobin 29.5 pg (25.0-34.0); Mean Corpuscular Hgb Conc 31.1 g/dL (32.0-36.0); Mean Corpuscular Volume 95.1 fL (80.0-100.0); Mean Platelet Volume 10.1 fL (9.4-12.4); Monocytes # (auto) 1.46 K/uL (0.11-0.59); Monocytes % (auto) 6.8 %; Neutrophils # (auto) 18.34 K/uL (1.40-6.50); Neutrophils % (auto) 84.9 %; Platelet Count 361 K/uL (130-400); RDW Standard Deviation 51.9 fL (36.4-46.3); Red Blood Count 4.47 M/uL (4.20-5.40); White Blood Count 21.59 K/ul (4.8-10.8)
[2023-08-21 17:25] LABS: Alanine Aminotransferase 7 U/L (7-52); Albumin Level 3.3 gm/dl (3.4-5.0); Alkaline Phosphatase 95 U/L (34-104); Anion Gap 6 (3-11); Aspartate Aminotransferase 13 U/L (13-39); BUN Creatinine Ratio 48.7 (10-20); Bilirubin Direct 0.2 mg/dl (0-0.2); Bilirubin,Total 0.8 mg/dl (0.2-1.0); Blood Urea Nitrogen 19 mg/dl (6-23); C Reactive Protein 9.58 mg/dl (0-0.5); Calcium 9.2 mg/dl (8.6-10.3); Carbon Dioxide 30 mmol/L (21-32); Chloride 104 mmol/L (98-107); Est GFR (Non-African American) 95.8 ml/min; Glucose 116 mg/dl (70-99(Fasting)); Potassium 3.8 mmol/L (3.5-5.1); Sodium 140 mmol/L (136-145); Total Protein 7.2 gm/dl (6.0-8.3)
[2023-08-21] MEDS: PIPERACILLIN/TAZOBACTAM 4.5 GM/100 ML BAG IV ONE (17:39)
[2023-08-21] MEDS: SODIUM CHLORIDE 0.9% 500 ML IV ONE (17:39)
[2023-08-21 18:14] LABS: T4 Free Thyroxine 0.57 ng/dl (0.61-1.60)
--- NOTE | 2023-08-21 18:51 | History & Physical Report ---
Date of Service August 21, 2023 Assessment & Plan (1) Sacral decubitus ulcer: (2) Osteomyelitis of coccyx: (3) Proctitis: (4) Dementia: (5) Hypothyroidism: (6) Severe protein-calorie malnutrition: Plan This is an 83 yr old F who has significant PMH of dementia who presents to ED 2/2 sacral wound. Sacral decubitus wound, unstageable at this time Osteomyelitis of sacrum admit to [facility] --CT a/p Sacral decubitus ulcer with a small of gas and infiltration surrounding the distal sacrum/coccyx. There is partial erosion of the distal sacrum/coccyx is consistent with an osteomyelitis. 2. Moderate rectal wall thickening consistent with a nonspecific proctitis.3. Moderate fecal retention.4. Large hiatus hernia.5. Multiple subacute to chronic compression deformities within the lower thoracic and lumbar spine as described above. empirically treat with IV Vancomycin and Zosyn consult wound care Constipation Proctitis bisacodyl MT x 1 now when able to tolerate PO will need to initiate bowel regimen Hypothyroidism TSH 26.8, free T4 0.57 will give levothyroxine IV 25mcg x 1 now once/if able to tolerate po will need to initiate oral Synthroid Severe protein calorie malnutrition will need to have further family discussion regarding goals of care given poor nutritional status and likely poor wound healing DVT ppx: SQ Heparin q12 Code Status: Discussed in detail with son, pt has not expressed wishes in past and does not have living will/advanced directive. He wishes to speak with pts and his brother in next 24 hours to determine goals of care. Pt would likely benefit from palliative consultation for goals of care. Will remain full code and will need re evaluated in the morning Dispo: admit to [facility] Pt was seen and examined in collaboration with Dr. Gamino, please see addendum A total of 60 minutes was spent coordinating, documenting, and providing care for this patient excluding time spent in the performance of separately billed se rvices. This included personally viewing all current laboratories and imaging studies, medication reconciliation, outpatient chart review, and discussion with specialists. History of Present Illness Chief Complaint: Sacral Wound Primary Care Provider: Vicki Pena This is an 83 yr old F who has significant PMH of dementia who presents to ED 2/2 sacral wound. Pt lives with son who is her main hospice care transitions coordinator. At baseline she is nonverbal and has been this way for ~ 1 year. She just recently established care with [facility] yesterday due to family needing additional help at home with home health. She is wheel chair/bed bound at baseline. The son tries to re position her as much as possible; however due to dementia she doesn't always follow commands and always tends to be on the right side. Recently she had foul smelling drainage, blood/pus, coming from wound. Son was hopeful PCP would be able to help but due to nature of wound they were referred here. ROS unobtainable from pt. Hx obtained from son via telephone. Pt previously had been on hospice in 2018, but had since come off due to improvement. She does not take any medications at baseline. She previously was on Tumeric forte which son said significantly helped her ability to function at home. She has not been able to eat/drink on own for some time and requires assistance. Son denies pt reporting any significant pain or fever. In ED pt remained hemodynamically stable. CT a/p concerning for coccyx osteomyelitis. She has elevated CRP to 9.59. She also has significantly elevated TSH at 26. Allergies Allergy/AdvReac Type Severity Reaction Status Date / Time bee venom protein (honey bee) Allergy localized Verified 08/21/23 19:25 swelling Penicillins Allergy Rash Verified 08/21/23 19:25 Sulfa (Sulfonamide Allergy Unknown Verified 08/21/23 19:25 Antibiotics) tomato Allergy tomato Verified 08/21/23 19:25 plant kevin cause rash Home Medications Medication Instructions Recorded Confirmed Type No Known Home Medications 08/21/23 08/21/23 History Past Med/Surg History Medical History (Updated 08/21/23 @ 20:37 by Polly Knight PA-C) Hypothyroidism Abdominal pain Dementia Surgical History H/O breast biopsy Family History Mother Cancer Social History Smoking Status: Unknown if ever smoked Second Hand Exposure: No; Do You Dip or Chew Tobacco: No; Hx Alcohol Use: No Hx Substance Use: No Preferred Language: Slovak Communication Ability: Impaired Trailer Body Assembler Required: No Beliefs That Will Affect Care: None marital status: marital status details: Current Living Situation: Spouse Current Living Situation Comment: Jaycee Berry current occupational status: retired 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 gamino addendum for physical exam findings. Results & Data Results & Data Vital Signs (Past 12 Hours) Vital Signs Temp Pulse Resp BP Pulse Ox O2 Del Method 08/21/23 16:57 73 08/21/23 16:11 36.5 C 78 21 133/71 96 Room Air Diagnostic Findings Abdomen/Pelvis CT 08/21/23 16:[address] WITHOUT CONTRAST CT DOSE: 328.42 mGy.cm HISTORY: deep sacral wound TECHNIQUE: Multiaxial CT images of the abdomen and pelvis were performed without contrast. A dose lowering technique was utilized adhering to the principles of ALARA. COMPARISON STUDY: Abdomen and pelvis CT 09/18/2018. FINDINGS: Mild superior endplate compression fractures at T11 and L2 which appear to be subacute. Moderate to severe compression fractures at L1, L3, and L4 are likely chronic. The L4 compression fracture demonstrates up to 4 mm of retropulsion and mild central canal narrowing at this level. Sacral decubitus ulcer with a small of gas and infiltration surrounding the distal sacrum/coccyx. There is partial erosion of the distal sacrum/coccyx is consistent with an osteomyelitis. No loculated fluid collections to suggest an abscess. Mild dependent changes seen at the lung bases. No pneumoperitoneum. No pneumatosis. 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 No significant articular collapse. Trace pericardial effusion. There is a large hiatus hernia containing the majority of the stomach and the pancreatic tail. The unenhanced liver, gallbladder, spleen, adrenal glands, and kidneys are unremarkable. No renal stones or hydronephrosis. No retroperitoneal lymphadenopathy. Calcified plaque within the normal caliber abdominal aorta. Mild body wall edema. Mild pelvic floor collapse. No bladder wall thickening. Small calcifications within the uterus favor fibroids. The adnexa are unremarkable. Moderate rectal wall thickening. This is best seen on image 304. Suboptimal evaluation for bowel pathology due to the lack of intravenous and oral contrast. However, no evidence for a bowel obstruction. Moderate fecal retention. Colonic diverticulosis. No evidence for acute diverticulitis. IMPRESSION: 1. Sacral decubitus ulcer with a small of gas and infiltration surrounding the distal sacrum/coccyx. There is partial erosion of the distal sacrum/coccyx is consistent with an osteomyelitis. 2. Moderate rectal wall thickening consistent with a nonspecific proctitis. 3. Moderate fecal retention. 4. Large hiatus hernia. 5. Multiple subacute to chronic compression deformities within the lower thoracic and lumbar spine as described above. 6. Additional findings as described above. ACT 112: Negative or not required by law. Electronically signed by: Magan Christie M.D. 08/21/2023 7:22 PM Medications Administered Medication List Discontinued Medications Piperacillin Sod/Tazobactam Sod (Zosyn) 4.5 gm in 100 mls @ 200 mls/hr IV NOW ONE Stop: 08/21/23 17:16 Last Infusion: 08/21/23 18:16 Dose: Infused Documented By: Admin: 08/21/23 17:39 Dose: 200 mls/hr Documented By: DYLAN Sodium Chloride (Nss) 500 mls @ 999 mls/hr IV .Q31M ONE Stop: 08/21/23 18:07 Last Infusion: 08/21/23 18:16 Dose: Infused Documented By: Admin: 08/21/23 17:39 Dose: 999 mls/hr Documented By: DYLAN COVID-19 Results Results COVID-19 Adm Lab Results: RBC 4.47 M/uL (4.20-5.40) 08/21/23 WBC 21.59 K/ul (4.8-10.8) H 08/21/23 Hgb 13.2 g/dl (12.0-16.0) 08/21/23 Hct 42.5 % (37.0-47.0) 08/21/23 Plt Count 361 K/uL (130-400) 08/21/23 Neutrophils (%) (Auto) 84.9 % 08/21/23 Lymphocytes (%) (Auto) 6.2 % 08/21/23 Monocytes # (Auto) 1.46 K/uL (0.11-0.59) H 08/21/23 Eosinophils # (Auto) 0.05 K/uL (0.00-0.50) 08/21/23 Immature Granulocyte % (Auto) 1.6 % 08/21/23 Neutrophils # (Auto) 18.34 K/uL (1.40-6.50) H 08/21/23 Lymphocytes # (Auto) 1.33 K/uL (1.20-3.40) 08/21/23 Monocytes # (Auto) 1.46 K/uL (0.11-0.59) H 08/21/23 Eosinophils # (Auto) 0.05 K/uL (0.00-0.50) 08/21/23 Basophils # (Auto) 0.07 K/uL (0.00-0.20) 08/21/23 Immature Granulocyte # (Auto) 0.34 K/uL (0.01-0.20) H 08/21 Na 140 mmol/L (136-145) 08/21/23 K 3.8 mmol/L (3.5-5.1) 08/21/23 Cl 104 mmol/L (98-107) 08/21/23 CO2 30 mmol/L (21-32) 08/21/23 Anion Gap 6 (3-11) 08/21/23 BUN 19 mg/dl (6-23) 08/21/23 Creatinine 0.39 mg/dl (0.6-1.2) L 08/21/23 BUN/Creatinine Ratio 48.7 (10-20) H 08/21/23 Glucose Level 116 mg/dl (70-99(Fasting)) H 08/21/23 Ca 9.2 mg/dl (8.6-10.3) 08/21/23 Total Bilirubin 0.8 mg/dl (0.2-1.0) 08/21/23 Direct Bilirubin 0.2 mg/dl (0-0.2) 08/21/23 AST/SGOT 13 U/L (13-39) 08/21/23 ALT/SGPT 7 U/L (7-52) 08/21/23 Alkaline Phosphatase 95 U/L (34-104) 08/21/23 Total Protein 7.2 gm/dl (6.0-8.3) 08/21/23 Albumin 3.3 gm/dl (3.4-5.0) L 08/21/23 CRP 9.58 mg/dl (0-0.5) H 08/21/23 Code Status & VTE Plan Code Status FULL CODE VTE Prophylaxis Plan VTE Prophylaxis will be ordered: Yes Supervising Physician Co-Signing Physician Notes I have seen and discussed the case with the collaborating YOEL. I agree with the above H&P. I have reviewed and confirmed the patients medical history, the findings on physical examination, and the patients diagnosis and treatment plan with Eugene DIALLO and agree with the information documented. In short, Ms Anna is an 83 year old with hypothyroidism, severe constipation, advanced dementia who is admitted for evaluation of sacral decubitus ulcer. Son not at bedside. Patient unable to complete ROS 2/2 nonverbal status. Awake and alert, but does not follow commands or respond--will maintain eye contact, but otherwise does not indicate understanding. Notably very malnourished, with documented weight of 35.5Kg. GENERAL APPEARANCE: AxO0, malnourished, cachectic and agitated woman . HEENT: NC, AT. MMM. EOMI, clear conjunctiva, poor dentition NECK: Supple without lymphadenopathy. No stiffness or restricted ROM. HEART: Normal rate and regular rhythm, normal S1/S1, no m/r/g LUNGS: CTAB, diminished 2/2 effort ABDOMEN: Soft, nontender, nondistended with good bowel sounds heard. BACK: vertebrae visible, iliac crest of pelvis without fat pad/visible EXTREMITIES: Without cyanosis, clubbing or edema. NEUROLOGICAL: Grossly nonfocal. Skin: mepilex in place with considerable drainage and foul odor #Unstageable sacral decubitus ulcer with imaging findings c/w osteomyelitis *POA -IV vanc zosyn -Wound care, gen surgery consult -Follow infectious workup #Fecal retention, ?stercoral colitis -suppository x 1, rectal tube 2/2 above #Severe hypothyroidism -Given son requested full measures and no clear source for PO (will hold NG discussion until better family meeting set) will give 1x dose levothyroxine and daily dosing can be discussed when better understanding of patient condition established #Severe protein calorie malnutrition -If family decides to pursue full measure will need nutrition consult to discuss feeds as current status less optimal for wound healing Son wishes to make decision about code status in next 24 hours after speaking to brother and patient's --in the interim would like all efforts at this time. Rest of plan as above I have reviewed the advanced practitioner's documentation, and I agree with, and take responsibility for the plan of care I spent a total of 35 minutes coordinating, documenting, and providing care for this patient excluding time spent in the performance of separately billed services. All of the aforementioned completed outside of collaborating with the assigned advanced practitioner for a full treatment plan. Please see their addendum for further details. (4) Dementia Dementia type: unspecified type (5) Hypothyroidism Hypothyroidism type: unspecified Qualified Code(s): E03.9 - Hypothyroidism, unspecified
--- NOTE | 2023-08-21 19:24 | CT Scan Report ---
ABDOMEN AND PELVIS CT WITHOUT CONTRAST CT DOSE: 328.42 mGy.cm HISTORY: deep sacral wound TECHNIQUE: Multiaxial CT images of the abdomen and pelvis were performed without contrast. A dose lo wering technique was utilized adhering to the principles of ALARA. COMPARISON STUDY: Abdomen and pelvis CT 09/18/2018. FINDINGS: Mild superior endplate compression fractures at T11 and L2 which appear to be subacute. Mod erate to severe compression fractures at L1, L3, and L4 are likely chronic. The L4 compression fractu re demonstrates up to 4 mm of retropulsion and mild central canal narrowing at this level. Sacral dec ubitus ulcer with a small of gas and infiltration surrounding the distal sacrum/coccyx. There is part ial erosion of the distal sacrum/coccyx is consistent with an osteomyelitis. No loculated fluid colle ctions to suggest an abscess. Mild dependent changes seen at the lung bases. No pneumoperitoneum. No pneumatosis. 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 No signif icant articular collapse. Trace pericardial effusion. There is a large hiatus hernia containing the m ajority of the stomach and the pancreatic tail. The unenhanced liver, gallbladder, spleen, adrenal gl ands, and kidneys are unremarkable. No renal stones or hydronephrosis. No retroperitoneal lymphadenop athy. Calcified plaque within the normal caliber abdominal aorta. Mild body wall edema. Mild pelvic f jarrod collapse. No bladder wall thickening. Small calcifications within the uterus favor fibroids. The adnexa are unremarkable. Moderate rectal wall thickening. This is best seen on image 304. Suboptimal evaluation for bowel pathology due to the lack of intravenous and oral contrast. However, no evidenc e for a bowel obstruction. Moderate fecal retention. Colonic diverticulosis. No evidence for acute di verticulitis. IMPRESSION: 1. Sacral decubitus ulcer with a small of gas and infiltration surrounding the distal sacrum/coccyx. There is partial erosion of the distal sacrum/coccyx is consistent with an osteomyelitis. 2. Moderate rectal wall thickening consistent with a nonspecific proctitis. 3. Moderate fecal retention. 4. Large hiatus hernia. 5. Multiple subacute to chronic compression deformities within the lower thoracic and lumbar spine as described above. 6. Additional findings as described above. ACT 112: Negative or not required by law. Electronically signed by: Magan Christie M.D. 08/21/2023 7:22 PM
[2023-08-21] MEDS: bisacodyL 10 MG SUPP PR STA (20:50)
[2023-08-21] MEDS ORDERED: MAGNESIUM HYDROXIDE SUSP 30 ML UDC PO PRN (22:12)
[2023-08-21] MEDS ORDERED: ACETAMINOPHEN 325 MG TAB PO PRN (22:12)
[2023-08-21] MEDS ORDERED: ALUMINUM/MAGNESIUM SUSP 30 ML UDC PO PRN (22:12)
[2023-08-21] MEDS ORDERED: ONDANSETRON INJ 2 MG/ML 2 ML VIAL IV PRN (22:12)
[2023-08-21] MEDS ORDERED: POLYETHYLENE (MIRALAX) 17 GM PACK PO PRN (22:12)
[2023-08-21] MEDS ORDERED: VANCOMYCIN CONSULT ACTIVE PRN (22:12)
[2023-08-21] MEDS: SODIUM CHLORIDE 0.9% 1,000 ML IV SCH (23:05)
[2023-08-21] MEDS: LEVOTHYROXINE SODIUM 25 MCG in SYRINGE 0 ML IV ONE (23:05)
[2023-08-21] MEDS: HEPARIN SOD 5,000 UNIT/0.5 ML VIAL SQ SCH (23:08)
[2023-08-21] MEDS: VANCOMYCIN HCL 750 MG in SODIUM CHLORIDE 0.9% 250 ML IV ONE (23:20)
[2023-08-22 00:44] LABS: Appearance Urine Turbid (Clear); Bacteria Urine Automated 4+ (Negative); Blood Urine Negative (Negative); Color Urine Dark Yellow; Epithelial Cell Urine Auto 20-30 /lpf (0-5); Glucose Urine UA Negative (Negative); Ketones Urine Trace (Negative); Leukocyte Esterase Urine 1+ (Negative); Nitrite Urine Positive (Negative); Protein Urine Trace (Negative); Specific Gravity Urine 1.026 (1.000-1.030); Urobilinogen Urine Negative (Negative); pH Urine 5.5 (4.5-7.5)
[2023-08-22 00:47] LABS: Bilirubin Urine 1+ (Negative)
[2023-08-22 00:58] LABS: Calcium Oxalate Crystals Urine Present (None Prsent); RBC Urine Automated 0-4 /hpf (0-4)
[2023-08-22] MEDS: PIPERACILLIN/TAZOBACTAM 4.5 GM in DEXTROSE 5% MINI-B 100 ML IV SCH (01:05)
[2023-08-22 06:43] LABS: Albumin Level 2.8 gm/dl (3.4-5.0); Bilirubin,Total 0.7 mg/dl (0.2-1.0); Calcium 8.5 mg/dl (8.6-10.3); Potassium 4.3 mmol/L (3.5-5.1)
[2023-08-22 06:49] LABS: Albumin Globulin Ratio 0.9 (0.9-2); BUN Creatinine Ratio 40.5 (10-20); Creatinine Clr Calc Pharmacy 60.2 ml/min; Est GFR (African American) 112.9 ml/min; Est GFR (Non-African American) 97.4 ml/min; Globulin 3.2 gm/dl (2.5-4.0)
[2023-08-22] MEDS: VANCOMYCIN HCL 750 MG in SODIUM CHLORIDE 0.9% 250 ML IV SCH (07:42)
[2023-08-22 08:26] LABS: Basophils # (auto) 0.06 K/uL (0.00-0.20); Basophils % (auto) 0.5 %; Eosinophils # (auto) 0.08 K/uL (0.00-0.50); Eosinophils % (auto) 0.6 %; Hemoglobin 12.2 g/dl (12.0-16.0); Immature Granulocytes # (auto) 0.25 K/uL (0.01-0.20); Immature Granulocytes % (auto) 1.9 %; Lymphocytes # (auto) 1.93 K/uL (1.20-3.40); Lymphocytes % (auto) 14.7 %; Mean Corpuscular Hemoglobin 29.6 pg (25.0-34.0); Mean Corpuscular Hgb Conc 30.5 g/dL (32.0-36.0); Mean Corpuscular Volume 97.1 fL (80.0-100.0); Mean Platelet Volume 10.1 fL (9.4-12.4); Monocytes # (auto) 1.41 K/uL (0.11-0.59); Monocytes % (auto) 10.7 %; Neutrophils # (auto) 9.39 K/uL (1.40-6.50); Neutrophils % (auto) 71.6 %; Platelet Count 289 K/uL (130-400); RDW Standard Deviation 53.7 fL (36.4-46.3); Red Blood Count 4.12 M/uL (4.20-5.40); White Blood Count 13.12 K/ul (4.8-10.8)
[2023-08-22] MEDS ORDERED: DEXTROSE 50% 50 ML SYRINGE IV PRN (09:49)
[2023-08-22] MEDS: DEXTROSE 50% 50 ML SYRINGE IV ONE (09:53)
--- NOTE | 2023-08-22 10:03 | Surgery Consultation ---
Date of Consultation August 22, 2023 Assessment & Plan (1) Sacral decubitus ulcer: Patient is a 83 yo female with PMH of being non-verbal, dementia, elevated blood pressure, hypothyroidism, failure to thrive, sacral ulcer. She lives with her son, and was seen at a [facility] facility yesterday for her sacral ulcer and was set up with home wound care. She then presented to the [facility] ER yesterday evening via EMS after there was concern about her sacral decubitus ulcer from her home wound caregiver. Her WBC were elevated yesterday at 21 . Today they are 13, patient is being treated with Vancomycin and Zosyn. Full exam of the sacral area was some what difficult do to some stiffness of the patients body. She is laying on her right side, is thin and frail appearing. Attempted to asses the area with Dr. Hensley. There is a wound care nurse consult in place, hopefully they will be able to evaluate the patients sacral ulcer and provide a picture to her chart. CT scan is showing: IMPRESSION: 1. Sacral decubitus ulcer with a small of gas and infiltration surrounding the distal sacrum/coccyx. There is partial erosion of the distal sacrum/coccyx is consistent with an osteomyelitis. 2. Moderate rectal wall thickening consistent with a nonspecific proctitis. 3. Moderate fecal retention. 4. Large hiatus hernia. 5. Multiple subacute to chronic compression deformities within the lower thoracic and lumbar spine as described above. 6. Additional findings as described above. Continue conservative care at this time with IV antibiotics, no acute surgical intervention today. Information was obtained through chart review . Supervising Physician Co-Signing Physician Notes This unfortunate 83-year-old female contracted noncommunicative longstanding history sacral decubiti we were asked to see the possibility further debridement of the sacral wound Once the wound service nurse was able to clean the area that has been soiled with stool she was able to take a picture of a large decubiti in the left buttock and an area of necrosis in the right buttock scar eschar present Realistically the patient is never going to heal this area to continue debridement of the area of eschar may minimize chance of an abscess but as far as the osteomyelitis that she has extensively there is no way that this patient is ever going to heal that and she is not a candidate for any aggressive surgical therapy In summary a dariel discussion should be had with the patient's caretakers regarding placing the patient on palliative care or hospice History of Present Illness Reason for Consultation: sacral ulcer Attending Physician: Kimberly Espinal MD History of Present Illness Patient is a 83 yo female with PMH of being non-verbal, dementia, elevated blood pressure, hypothyroidism, failure to thrive, sacral ulcer. She lives with her son, and was seen at a [facility] facility yesterday for her sacral ulcer and was set up with home wound care. She then presented to the [facility] ER yesterday evening via EMS after there was concern about her sacral decubitus ulcer from her home wound caregiver. Information was obtained through chart review . Allergies Allergy/AdvReac Type Severity Reaction Status Date / Time bee venom protein (honey bee) Allergy localized Verified 08/21/23 19:25 swelling Penicillins Allergy Rash Verified 08/21/23 19:25 Sulfa (Sulfonamide Allergy Unknown Verified 08/21/23 19:25 Antibiotics) tomato Allergy tomato Verified 08/21/23 19:25 plant kevin cause rash Home Medications Medication Instructions Recorded Confirmed Type No Known Home Medications 08/21/23 08/21/23 History Patient History Medical History Hypothyroidism Abdominal pain Dementia Surgical History H/O breast biopsy Family History Mother Cancer Social History Smoking Status: Unknown if ever smoked Second Hand Exposure: No; Do You Dip or Chew Tobacco: No; Hx Alcohol Use: No (JULISSA) Hx Substance Use: No (JULISSA) Preferred Language: Indonesian Communication Ability: Unable Communication Ability Comment: unable to assess; pt nonverbal Distillery Manager Required: No Beliefs That Will Affect Care: None marital status: marital status details: Current Living Situation: Family Current Living Situation Comment: Jaycee Berry current occupational status: retired 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 How many Children do You have: 2 other: 2 sons Feels Safe at Home: Declines to Answer and Hesitant to Answer Assistive Devices: Hospital Bed Physical Exam Constitutional: + ill appearing, + frail appearing and + underweight Respiratory: normal respiratory effort; no respiratory distress Results & Data Vital Signs (Past 12 Hours) Vital Signs Temp Pulse Pulse Resp BP Pulse Ox O2 Del Method 08/22/23 08:00 Room Air 08/22/23 07:55 97.3 F L 101 H 16 144/80 H 100 Room Air 08/22/23 07:00 62 08/22/23 03:07 97.3 F L 57 L 136/71 99 Room Air 08/22/23 01:24 54 L 08/22/23 00:47 Room Air 08/21/23 22:44 97.5 F L 60 16 134/71 96 Room Air Diagnostic Findings [place], [place] [phone] CT Scan Report Patient: ANIL NORIEGA Admit Date: 08/21/23 MR#: [id number] Address1: [address] JIMENEZ Acct ID:[id number] Address2: Date: 1940 [facility] Zip: [place] [address] Age: 83 Location: ED Sex: F Room/Bed: Att Phy: Diagnosis: WOUND OF BUTT Kaye Phy: PCP,NO Service Date: 08/21/23 Fam Phy: Interpreting Phy: Magan Christie MDAdmit Phy: Ordering Phy: Fritz Singleton M.D. cc: ~ ABDOMEN AND PELVIS CT WITHOUT CONTRAST CT DOSE: 328.42 mGy.cm HISTORY: deep sacral wound TECHNIQUE: Multiaxial CT images of the abdomen and pelvis were performed without contrast. A dose lowering technique was utilized adhering to the principles of ALARA. COMPARISON STUDY: Abdomen and pelvis CT 09/18/2018. FINDINGS: Mild superior endplate compression fractures at T11 and L2 which appear to be subacute. Moderate to severe compression fractures at L1, L3, and L4 are likely chronic. The L4 compression fracture demonstrates up to 4 mm of retropulsion and mild central canal narrowing at this level. Sacral decubitus ulcer with a small of gas and infiltration surrounding the distal sacrum/coccyx. There is partial erosion of the distal sacrum/coccyx is consistent with an osteomyelitis. No loculated fluid collections to suggest an abscess. Mild dependent changes seen at the lung bases. No pneumoperitoneum. No pneumatosis. 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 No significant articular collapse. Trace pericardial effusion. There is a large hiatus hernia containing the majority of the stomach and the pancreatic tail. The unenhanced liver, gallbladder, spleen, adrenal glands, and kidneys are unremarkable. No renal stones or hydronephrosis. No retroperitoneal lymphadenopathy. Calcified plaque within the normal caliber abdominal aorta. Mild body wall edema. Mild pelvic floor collapse. No bladder wall thickening. Small calcifications within the uterus favor fibroids. The adnexa are unremarkable. Moderate rectal wall thickening. This is best seen on image 304. Suboptimal evaluation for bowel pathology due to the lack of intravenous and oral contrast. However, no evidence for a bowel obstruction. Moderate fecal retention. Colonic diverticulosis. No evidence for acute diverticulitis. IMPRESSION: 1. Sacral decubitus ulcer with a small of gas and infiltration surrounding the distal sacrum/coccyx. There is partial erosion of the distal sacrum/coccyx is consistent with an osteomyelitis. 2. Moderate rectal wall thickening consistent with a nonspecific proctitis. 3. Moderate fecal retention. 4. Large hiatus hernia. 5. Multiple subacute to chronic compression deformities within the lower thoracic and lumbar spine as described above. 6. Additional findings as described above. ACT 112: Negative or not required by law. Electronically signed by: Magan Christie M.D. 08/21/2023 7:22 PM Dictated: 08/21/231912 Transcribed: 08/21/231912 PG Care Time/CCT Total # of Minutes Spent Total Time Spent with Patient: Total time spent is greater than 50% in coordination of care (as documented) at patient's floor/unit and/or counseling patient: Coding Level of Care Code 40711 INT INP/OBS CARE 1/40MIN Diagnoses Sacral decubitus ulcer L89.159
--- NOTE | 2023-08-22 14:50 | Hospitalist Progress Note ---
Date of Service August 22, 2023 Assessment & Plan (1) Sacral decubitus ulcer: (2) Osteomyelitis of coccyx: (3) Proctitis: (4) Dementia: (5) Hypothyroidism: (6) Severe protein-calorie malnutrition: Plan This is an 83 yr old F who has significant PMH of dementia who presents to ED 2/2 sacral wound. Sacral decubitus wound Osteomyelitis of sacrum CT abd/pelvis: -Sacral decubitus ulcer with a small of gas and infiltration surrounding the distal sacrum/coccyx. There is partial erosion of the distal sacrum/coccyx is consistent with an osteomyelitis. 2. Moderate rectal wall thickening consistent with a nonspecific proctitis.3. Moderate fecal retention.4. Large hiatus hernia.5. Multiple subacute to chronic compression deformities within the lower thoracic and lumbar spine as described above. Wound Cx currently growing staph species Continue IV Vancomycin and Zosyn Consult wound care- appreciate recs Consult ID for osteomyelitis- appreciate recs Consult general surgery for possible wound debridement?-pictures currently in chart- appreciate recs Constipation Proctitis bisacodyl [place] x 1 on admission Per records, pt has since had BMs Continue with bowel regimen Hypothyroidism TSH 26.8, free T4 0.57 will give levothyroxine IV 25mcg x 1 now once/if able to tolerate po will need to initiate oral Synthroid PCP follow up after discharge Hypoglycemia Pt with noted episodes of low glucose levels Given amp of dextrose on 08/22 Encourage po intake Continue to monitor Severe protein calorie malnutrition Speech consulted- appreciate recs Car Unloader Helper consulted-appreciate recs Will need to have further family discussion regarding goals of care given poor nutritional status and likely poor wound healing- palliative care consult placed. -reports of family declining SNF placement and desirous of taking pt home -per CM, [facility] A[facility] contacted and were already aware of pt. No concerns for neglect but family did not have resources to properly take care of pt. Diet: Regular, pureed DVT ppx: SQ Heparin q12 Code Status: Admitting team discussed in detail with son, pt has not expressed wishes in past and does not have living will/advanced directive. Son advised at that time that he wished to speak with pt's and his brother to determine goals of care. Will remain full code until family expresses otherwise. Dispo: currently uncertain Admission and Anticipated Discharge Date Admission Date: August 21, 2023 Subjective Pt was seen in the AM. Nonverbal, watching tv. Review of Systems Review of Systems: Unobtainable due to cognitive status Physical Exam Physical Exam: General: Alert Skin: sacral ulcer covered at the time of exam Psych: mood and affect could not be determined Neuro: nonverbal HEENT: NC/AT CV: RRR Resp: no increased effort of breathing Abdomen: Soft Extremities: No edema in lower extremities bilaterally. Results & Data Results & Data Vital Signs (Past 12 Hours) Vital Signs Temp Pulse Pulse Resp BP Pulse Ox O2 Del Method 08/22/23 11:52 36.7 C 62 17 122/61 96 Room Air 08/22/23 08:00 Room Air 08/22/23 07:55 36.3 C L 101 H 16 144/80 H 100 Room Air 08/22/23 07:00 62 08/22/23 03:07 36.3 C L 57 L 136/71 99 Room Air (4) Dementia Dementia type: unspecified type (5) Hypothyroidism Hypothyroidism type: unspecified Qualified Code(s): E03.9 - Hypothyroidism, unspecified
--- NOTE | 2023-08-22 14:52 | Pharmacy Report ---
Pharmacy PK ABX Note - Date of Service August 22, 2023 - Assessment and Plan Assessment 83 year old F receiving vancomycin/Zosyn for treatment of sacral decubitus ulcer/osteomyelitis. Pertinent microbiologic data includes: blood and urine cultures pending, sacrum surface culture growing staph species (final sensitivities and identification pending) Day # 1 of antimicrobial therapy. Plan Vancomycin * Loading dose: 750 mg IV x 1 * Maintenance dose: 750 mg IV every 12 hours * Regimen is predicted to achieve target AUC/LYNN of 400-600 mg/L.hr (per [facility] due to low body weight, patient is not a great fit) * Level this AM below goal range, will increase to vancomycin 1000mg Q12H and redraw trough tomorrow AM to assess for toxicity. This is predicting therapeutic with an AUC/LYNN slightly above goal range, but therapeutic trough. Will dose aggressively due to severity of infection. Will draw another level tomorrow AM to better assess. * Trough level ordered for: 08/23/22 @0430 Pharmacy will continue to follow and will adjust dose/frequency as necessary. Thank you. Pharmacy has transitioned to AUC monitoring for vancomycin. AUC/LYNN is the preferred PK/PD target and is associated with decreased risk of nephrotoxicity compared to traditional trough targets.
[2023-08-22] MEDS: VANCOMYCIN HCL 1,000 MG in SODIUM CHLORIDE 0.9% 250 ML IV SCH (15:46)
[2023-08-23] MEDS: VANCOMYCIN LEVEL ONE (05:00)
[2023-08-23 05:04] LABS: Basophils # (auto) 0.06 K/uL (0.00-0.20); Basophils % (auto) 0.6 %; Eosinophils # (auto) 0.15 K/uL (0.00-0.50); Eosinophils % (auto) 1.4 %; Hematocrit (blood only) 36.8 % (37.0-47.0); Hemoglobin 11.7 g/dl (12.0-16.0); Immature Granulocytes # (auto) 0.36 K/uL (0.01-0.20); Immature Granulocytes % (auto) 3.4 %; Lymphocytes # (auto) 1.55 K/uL (1.20-3.40); Lymphocytes % (auto) 14.7 %; Mean Corpuscular Hemoglobin 30.1 pg (25.0-34.0); Mean Corpuscular Hgb Conc 31.8 g/dL (32.0-36.0); Mean Corpuscular Volume 94.6 fL (80.0-100.0); Mean Platelet Volume 9.9 fL (9.4-12.4); Monocytes # (auto) 0.92 K/uL (0.11-0.59); Monocytes % (auto) 8.8 %; Neutrophils # (auto) 7.47 K/uL (1.40-6.50); Neutrophils % (auto) 71.1 %; Platelet Count 347 K/uL (130-400); RDW Coefficient of Variation 14.9 % (11.5-14.5); RDW Standard Deviation 51.7 fL (36.4-46.3); Red Blood Count 3.89 M/uL (4.20-5.40); White Blood Count 10.51 K/ul (4.8-10.8)
[2023-08-23 05:22] LABS: Albumin Globulin Ratio 0.9 (0.9-2); Albumin Level 2.6 gm/dl (3.4-5.0); Bilirubin,Total 0.5 mg/dl (0.2-1.0); Calcium 8.1 mg/dl (8.6-10.3); Creatinine Clr Calc Pharmacy 55.7 ml/min; Est GFR (African American) 110.1 ml/min; Magnesium 1.9 mg/dl (1.7-2.4); Phosphorus 2.5 mg/dl (2.5-4.9); Potassium 3.3 mmol/L (3.5-5.1); Total Protein 5.6 gm/dl (6.0-8.3)
[2023-08-23] MEDS: MAGNESIUM SULFATE / D5W 1 GM/100 ML BAG IV ONE (06:15)
[2023-08-23] MEDS: POTASSIUM CHLORIDE CRTAB 20 MEQ TABCR PO STA (06:15)
--- NOTE | 2023-08-23 09:40 | Surgery Progress Note ---
Date of Service August 23, 2023 Assessment & Plan (1) Sacral decubitus ulcer: (2) Osteomyelitis of coccyx: Plan unfortunately, patient has significant wound of the sacrum that will likely not heal. No plans to operate at this time. I was able to reach out to primary team, Dr. Espinal regarding patient's care. Palliative care consult has been placed. Juma discussion is needed with family regarding patient's care. I was able to personally speak with patient's , Alvin, who is very reasonable. He feels that she would not benefit from surgery at this time. He is aware that a consult has been placed to palliative care and will wait to speak with them once they have met with his . Alvin, at this point in time, ultimately feels that he would like for his to return home. I encouraged him to wait and see what recommendations are made by palliative care so that he can have help at home. He voiced understanding and agreement. Admission and Anticipated Discharge Date Admission Date: August 21, 2023 Supervising Physician Co-Signing Physician Notes primary focus needs to focus on palliative care no further surgery is recommended as per Korin paganly outlined Subjective Chaparro is resting in bed. She is easily awakened when she hears her name. She is unable to communicate. Per nursing family has not been in to see patient today, unsure if they came in yesterday. patient was previously on hospice care, but did improve and was removed from hospice care. Review of Systems Review of Systems: Unobtainable due to cognitive status Physical Exam Constitutional: + ill appearing, + frail appearing and + underweight Respiratory: normal respiratory effort; no respiratory distress Skin: 5 x 5 x 2.5 cm pressure ulcer of the sac rum. Wound does tunnel. + osteo Chaparro is very tender with movement and examination. Results & Data Vital Signs (Past 12 Hours) Vital Signs Temp Pulse Pulse Resp BP Pulse Ox O2 Del Method 08/23/23 07:57 36.5 C 60 16 151/64 H 92 Room Air 08/23/23 07:28 60 08/23/23 04:00 36.6 C 97 H 20 135/63 94 Room Air 08/23/23 01:45 Room Air 08/23/23 00:30 36.9 C 70 20 137/54 L 95 Room Air 08/22/23 23:53 67 PG Care Time/CCT Total # of Minutes Spent Total Time Spent with Patient: Total time spent is greater than 50% in coordination of care (as documented) at patient's floor/unit and/or counseling patient: Coding Level of Care Code 83552 SUB INP/OBS CARE 07/24MIN Diagnoses Sacral decubitus ulcer L89.159 Osteomyelitis of coccyx M46.28
--- NOTE | 2023-08-23 09:53 | Pharmacy Report ---
Pharmacy PK ABX Note - Date of Service August 23, 2023 - Assessment and Plan Assessment 08/23: Continues on vanc/zosyn- day # 3 vanc for sacral osteomyelitis. Prelim sacrum culture (+) Staph spp. SCr stable, although not a reliable indicator of renal function due to body habitus. 83 year old F receiving vancomycin/Zosyn for treatment of sacral decubitus ulcer/osteomyelitis. Pertinent microbiologic data includes: blood and urine cultures pending, sacrum surface culture growing staph species (final sensitivities and identification pending) Plan Vancomycin * Current regimen: 1gm IV q12h * Random level this AM, 15.1mcg/mL (~13 hr level) predicted to achieve ssAUC 800mg/L.hr (trough, 21.6mcg/mL) which is supratherapeutic. Additionally, not a steady state level (obtained after a single 1gm dose) so would anticipate further accumulation on this regimen. * Adjust regimen to 500mg (~15mg/kg) IV q12h starting at midnight tonight. Body weight excludes patient from [facility] AUC modelling predictions and has a therapeutic level after 3 doses. * Will repeat a level tomorrow- await sensitivities of sacral culture. Pharmacy will continue to follow and will adjust dose/frequency as necessary. Thank you. Pharmacy has transitioned to AUC monitoring for vancomycin. AUC/LYNN is the preferred PK/PD target and is associated with decreased risk of nephrotoxicity compared to traditional trough targets.
--- NOTE | 2023-08-23 15:21 | Hospitalist Progress Note ---
Date of Service August 23, 2023 Assessment & Plan (1) Sacral decubitus ulcer: (2) Osteomyelitis of coccyx: (3) Proctitis: (4) Dementia: (5) Hypothyroidism: (6) Severe protein-calorie malnutrition: Plan This is an 83 yr old F who has significant PMH of dementia who presents to ED 2/2 sacral wound. Sacral decubitus wound Osteomyelitis of sacrum CT abd/pelvis: -Sacral decubitus ulcer with a small of gas and infiltration surrounding the distal sacrum/coccyx. There is partial erosion of the distal sacrum/coccyx is consistent with an osteomyelitis. 2. Moderate rectal wall thickening consistent with a nonspecific proctitis.3. Moderate fecal retention.4. Large hiatus hernia.5. Multiple subacute to chronic compression deformities within the lower thoracic and lumbar spine as described above. Wound Cx currently growing staph species Continue IV Vancomycin and Zosyn Consult wound care- appreciate recs Consult ID for osteomyelitis- appreciate recs Consult general surgery for possible wound debridement?-pictures currently in chart- appreciate recs -Gen Surg recommending palliative consult -no plans for surgical intervention Complicated UTI UA suggestive of infection Urine Cx growing gram negative bacilli at this time Continue Zosyn as above Will likely need to continue with IV antibiotics in setting of osteomyelitis noted above Constipation Proctitis bisacodyl [place] x 1 on admission Per records, pt has since had BMs Continue with bowel regimen Hypothyroidism TSH 26.8, free T4 0.57 will give levothyroxine IV 25mcg x 1 now once/if able to tolerate po will need to initiate oral Synthroid PCP follow up after discharge Hypoglycemia Pt with noted episodes of low glucose levels Given amp of dextrose on 08/22 Encourage po intake Continue to monitor Severe protein calorie malnutrition Speech consulted- appreciate recs Founder And Chief Technical Officer consulted-appreciate recs Will need to have further family discussion regarding goals of care given poor nutritional status and likely poor wound healing- palliative care consult placed. -reports of family declining SNF placement and desirous of taking pt home -per CM, [facility] contacted and were already aware of pt. No concerns for neglect but family did not have resources to properly take care of pt. Diet: Regular, pureed DVT ppx: SQ Heparin q12 Code Status: Admitting team discussed in detail with son, pt has not expressed wishes in past and does not have living will/advanced directive. Son advised at that time that he wished to speak with pt's and his brother to determine goals of care. Will remain full code until family expresses otherwise. Dispo: currently uncertain Admission and Anticipated Discharge Date Admission Date: August 21, 2023 Subjective Pt was seen sitting up in bed. Was making sounds today, more alert. Review of Systems Review of Systems: Unobtainable due to cognitive status Physical Exam Physical Exam: General: Alert Skin: sacral ulcer covered at the time of exam Psych: mood and affect could not be determined Neuro: nonverbal HEENT: NC/AT CV: RRR Resp: no increased effort of breathing Abdomen: Soft Extremities: No edema in lower extremities bilaterally. Results & Data Results & Data Vital Signs (Past 12 Hours) Vital Signs Temp Pulse Pulse Resp BP BP Pulse Ox 08/23/23 11:28 36.4 C L 68 17 132/69 96 08/23/23 08:00 08/23/23 07:57 36.5 C 60 16 151/64 H 92 08/23/23 07:28 60 08/23/23 04:00 36.6 C 97 H 20 135/63 94 O2 Del Method 08/23/23 11:28 Room Air 08/23/23 08:00 Room Air 08/23/23 07:57 Room Air 08/23/23 07:28 08/23/23 04:00 Room Air (4) Dementia Dementia type: unspecified type (5) Hypothyroidism Hypothyroidism type: unspecified Qualified Code(s): E03.9 - Hypothyroidism, unspecified
[2023-08-23] MEDS: VANCOMYCIN HCL 500 MG in NSS 100mL IV SCH (19:39)
[2023-08-23] MEDS ORDERED: VANCOMYCIN HCL 500 MG in NSS 100mL IV SCH (20:00)
[2023-08-24] MEDS ORDERED: VANCOMYCIN HCL 1,000 MG in SODIUM CHLORIDE 0.9% 250 ML IV SCH
[2023-08-24 07:47] LABS: Basophils # (auto) 0.03 K/uL (0.00-0.20); Basophils % (auto) 0.4 %; Eosinophils # (auto) 0.11 K/uL (0.00-0.50); Eosinophils % (auto) 1.4 %; Hematocrit (blood only) 37.4 % (37.0-47.0); Hemoglobin 11.7 g/dl (12.0-16.0); Immature Granulocytes # (auto) 0.29 K/uL (0.01-0.20); Immature Granulocytes % (auto) 3.8 %; Lymphocytes # (auto) 1.69 K/uL (1.20-3.40); Lymphocytes % (auto) 21.9 %; Mean Corpuscular Hemoglobin 29.5 pg (25.0-34.0); Mean Corpuscular Hgb Conc 31.3 g/dL (32.0-36.0); Mean Corpuscular Volume 94.4 fL (80.0-100.0); Mean Platelet Volume 9.6 fL (9.4-12.4); Monocytes # (auto) 0.73 K/uL (0.11-0.59); Monocytes % (auto) 9.5 %; Neutrophils # (auto) 4.85 K/uL (1.40-6.50); Platelet Count 331 K/uL (130-400); RDW Coefficient of Variation 15.1 % (11.5-14.5); Red Blood Count 3.96 M/uL (4.20-5.40)
[2023-08-24 08:00] LABS: Albumin Globulin Ratio 0.8 (0.9-2); Albumin Level 2.6 gm/dl (3.4-5.0); Bilirubin,Total 0.5 mg/dl (0.2-1.0); Calcium 8.4 mg/dl (8.6-10.3); Creatinine Clr Calc Pharmacy 49.1 ml/min; Est GFR (African American) 105.9 ml/min; Est GFR (Non-African American) 91.4 ml/min; Globulin 3.1 gm/dl (2.5-4.0); Magnesium 2.2 mg/dl (1.7-2.4); Phosphorus 2.8 mg/dl (2.5-4.9); Potassium 3.9 mmol/L (3.5-5.1); Total Protein 5.7 gm/dl (6.0-8.3)
--- NOTE | 2023-08-24 09:27 | Pharmacy Report ---
Pharmacy PK ABX Note - Date of Service August 24, 2023 - Assessment and Plan Assessment 08/24: Day # 4 vanc/zosyn for sacral osteomyelitis. Sacral surface culture (+) MSSA - no deep bone cultures obtained. SCr stable. Attempted to de-escalate therapy to either cefazolin or zosyn monotherapy, however provider awaiting ID consult. 08/23: Continues on vanc/zosyn- day # 3 vanc for sacral osteomyelitis. Prelim sacrum culture (+) Staph spp. SCr stable, although not a reliable indicator of renal function due to body habitus. 83 year old F receiving vancomycin/Zosyn for treatment of sacral decubitus ulcer/osteomyelitis. Pertinent microbiologic data includes: blood and urine c ultures pending, sacrum surface culture growing staph species (final sensitivities and identification pending) Plan Vancomycin * Current regimen: 500mg IV q12h * Random level this AM, 14.7mcg/mL (~12 hr level) , non steady state trough level - therapeutic. [facility] predicts ssAUC 459mg/L.hr with is therapeutic. * Continue 500mg IV q12h * Repeat steady state trough level tomorrow Pharmacy will continue to follow and will adjust dose/frequency as necessary. Thank you. Pharmacy has transitioned to AUC monitoring for vancomycin. AUC/LYNN is the preferred PK/PD target and is associated with decreased risk of nephrotoxicity compared to traditional trough targets.
[2023-08-24] MEDS: VANCOMYCIN HCL 500 MG in NSS 100mL IV SCH (11:14)
--- NOTE | 2023-08-24 12:34 | Hospitalist Progress Note ---
Date of Service August 24, 2023 Assessment & Plan (1) Sacral decubitus ulcer: (2) Osteomyelitis of coccyx: (3) Proctitis: (4) Dementia: (5) Hypothyroidism: (6) Severe protein-calorie malnutrition: Plan This is an 83 yr old F who has significant PMH of dementia who presents to ED 2/2 sacral wound. Sacral decubitus wound Osteomyelitis of sacrum CT abd/pelvis: -Sacral decubitus ulcer with a small of gas and infiltration surrounding the distal sacrum/coccyx. There is partial erosion of the distal sacrum/coccyx is consistent with an osteomyelitis. 2. Moderate rectal wall thickening consistent with a nonspecific proctitis.3. Moderate fecal retention.4. Large hiatus hernia.5. Multiple subacute to chronic compression deformities within the lower thoracic and lumbar spine as described above. Wound Cx currently growing staph species Blood Cx x2 with NGTD Continue IV Vancomycin and Zosyn Consult wound care- appreciate recs Consult ID for osteomyelitis- appreciate recs Consult general surgery for possible wound debridement?-pictures currently in chart- appreciate recs -Gen Surg recommending palliative consult -no plans for surgical intervention Complicated UTI UA suggestive of infection Urine Cx grew pansensitive E coli Continue Zosyn as above Will likely need to continue with IV antibiotics in setting of osteomyelitis noted above, awaiting ID recs Constipation Proctitis bisacodyl [place] x 1 on admission Per records, pt has since had BMs Continue with bowel regimen Hypothyroidism TSH 26.8, free T4 0.57 will give levothyroxine IV 25mcg x 1 now once/if able to tolerate po will need to initiate oral Synthroid PCP follow up after discharge Hypoglycemia Pt with noted episodes of low glucose levels Given amp of dextrose on 08/22 Encourage po intake Continue to monitor Severe protein calorie malnutrition Speech consulted- appreciate recs Route Agent consulted-appreciate recs Will need to have further family discussion regarding goals of care given poor nutritional status and likely poor wound healing- palliative care consult placed. -reports of family declining SNF placement and desirous of taking pt home -per CM, [facility] contacted and were already aware of pt. No concerns for neglect but family did not have resources to properly take care of pt. Diet: Regular, pureed DVT ppx: SQ Heparin q12 Code Status: Admitting team discussed in detail with son, pt has not expressed wishes in past and does not have living will/advanced directive. Son advised at that time that he wished to speak with pt's and his brother to determine goals of care. Will remain full code until family expresses otherwise. Dispo: currently uncertain Admission and Anticipated Discharge Date Admission Date: August 21, 2023 Subjective Pt was seen sitting up in bed. Was making sounds today, more alert. Review of Systems Review of Systems: Unobtainable due to cognitive status Physical Exam Physical Exam: General: Alert Skin: sacral ulcer covered at the time of exam Psych: mood and affect could not be determined Neuro: nonverbal HEENT: NC/AT CV: RRR Resp: no increased effort of breathing Abdomen: Soft Extremities: No edema in lower extremities bilaterally. Results & Data Results & Data Vital Signs (Past 12 Hours) Vital Signs Temp Pulse Pulse Resp BP BP Pulse Ox 08/24/23 11:29 36.8 C 61 18 156/57 H 100 08/24/23 08:00 85 08/24/23 08:00 08/24/23 07:51 36.4 C L 59 L 16 158/93 H 100 08/24/23 01:11 O2 Del Method 08/24/23 11:29 Room Air 08/24/23 08:00 08/24/23 08:00 Room Air 08/24/23 07:51 Room Air 08/24/23 01:11 Room Air (4) Dementia Dementia type: unspecified type (5) Hypothyroidism Hypothyroidism type: unspecified Qualified Code(s): E03.9 - Hypothyroidism, unspecified
[2023-08-25 09:53] LABS: Albumin Globulin Ratio 0.7 (0.9-2); Albumin Level 2.6 gm/dl (3.4-5.0); BUN Creatinine Ratio 20.8 (10-20); Basophils # (auto) 0.03 K/uL (0.00-0.20); Basophils % (auto) 0.5 %; Bilirubin,Total 0.6 mg/dl (0.2-1.0); Calcium 8.6 mg/dl (8.6-10.3); Creatinine Clr Calc Pharmacy 42.3 ml/min; Eosinophils # (auto) 0.08 K/uL (0.00-0.50); Eosinophils % (auto) 1.2 %; Est GFR (African American) 100.3 ml/min; Est GFR (Non-African American) 86.6 ml/min; Globulin 3.5 gm/dl (2.5-4.0); Hematocrit (blood only) 40.2 % (37.0-47.0); Hemoglobin 12.7 g/dl (12.0-16.0); Immature Granulocytes # (auto) 0.23 K/uL (0.01-0.20); Immature Granulocytes % (auto) 3.6 %; Lymphocytes # (auto) 1.58 K/uL (1.20-3.40); Lymphocytes % (auto) 24.6 %; Magnesium 2.1 mg/dl (1.7-2.4); Mean Corpuscular Hemoglobin 29.6 pg (25.0-34.0); Mean Corpuscular Hgb Conc 31.6 g/dL (32.0-36.0); Mean Corpuscular Volume 93.7 fL (80.0-100.0); Mean Platelet Volume 9.7 fL (9.4-12.4); Monocytes # (auto) 0.72 K/uL (0.11-0.59); Monocytes % (auto) 11.2 %; Neutrophils # (auto) 3.78 K/uL (1.40-6.50); Neutrophils % (auto) 58.9 %; Phosphorus 2.6 mg/dl (2.5-4.9); Platelet Count 310 K/uL (130-400); Potassium 4.1 mmol/L (3.5-5.1); RDW Coefficient of Variation 15.2 % (11.5-14.5); RDW Standard Deviation 52.2 fL (36.4-46.3); Red Blood Count 4.29 M/uL (4.20-5.40); Total Protein 6.1 gm/dl (6.0-8.3); White Blood Count 6.42 K/ul (4.8-10.8)
[2023-08-25] MEDS: VANCOMYCIN LEVEL ONE (09:53)
--- NOTE | 2023-08-25 10:14 | Pharmacy Report ---
Pharmacy PK ABX Note - Date of Service August 25, 2023 - Assessment and Plan Assessment 08/15: Vancomycin level this AM ~13.4 mcg/ml - current vancomycin dosing predicted to achieve goal AUC/LYNN, renal function stable. Awaiting ID rec's 08/24: Day # 4 vanc/zosyn for sacral osteomyelitis. Sacral surface culture (+) MSSA - no deep bone cultures obtained. SCr stable. Attempted to de-escalate therapy to either cefazolin or zosyn monotherapy, however provider awaiting ID consult. 08/23: Continues on vanc/zosyn- day # 3 vanc for sacral osteomyelitis. Prelim sacrum culture (+) Staph spp. SCr stable, although not a reliable indicator of renal function due to body habitus. 83 year old F receiving vancomycin/Zosyn for treatment of sacral decubitus ulcer/osteomyelitis. Pertinent microbiologic data includes: blood and urine cultures pending, sacrum surface culture growing staph species (final sensitivities and identification pending) Plan Vancomycin * Continue current vancomycin regimen 500 mg iv q 12 hours * Will continue closer monitoring and recheck again in another 48 hours to ensure stable Pharmacy will continue to follow and will adjust dose/frequency as necessary. Thank you. Pharmacy has transitioned to AUC monitoring for vancomycin. AUC/LYNN is the preferred PK/PD target and is associated with decreased risk of nephrotoxicity compared to traditional trough targets.
--- NOTE | 2023-08-25 11:43 | Hospitalist Progress Note ---
Date of Service August 25, 2023 Assessment & Plan (1) Sacral decubitus ulcer: (2) Osteomyelitis of coccyx: (3) Proctitis: (4) Dementia: (5) Hypothyroidism: (6) Severe protein-calorie malnutrition: Plan This is an 83 yr old F who has significant PMH of dementia who presents to ED 2/2 sacral wound. Pt was transitioned to comfort measures on 08/25 per Palliative Care. IV antibiotics continued. Pt was previously treated for the following: Sacral decubitus wound Osteomyelitis of sacrum CT abd/pelvis: -Sacral decubitus ulcer with a small of gas and infiltration surrounding the distal sacrum/coccyx. There is partial erosion of the distal sacrum/coccyx is consistent with an osteomyelitis. 2. Moderate rectal wall thickening consistent with a nonspecific proctitis.3. Moderate fecal retention.4. Large hiatus hernia .5. Multiple subacute to chronic compression deformities within the lower thoracic and lumbar spine as described above. Wound Cx currently growing staph species Blood Cx x2 with NGTD Continue IV Vancomycin and Zosyn Consult wound care- appreciate recs Consult ID for osteomyelitis- appreciate recs Consult general surgery for possible wound debridement?-pictures currently in chart- appreciate recs -Gen Surg recommending palliative consult -no plans for surgical intervention Complicated UTI UA suggestive of infection Urine Cx grew pansensitive E coli Continue Zosyn as above Will likely need to continue with IV antibiotics in setting of osteomyelitis noted above Id previously consulted, recommending the following: -unasyn iv, 1.5 gm q8 hours given her CrCl ~42 and low body weight. -Notes "this 6-week iv abx therapy may not give a last effect as no OR debridement has been performed and the chance of this large wound healing in this patient, bed-ridden, w/ severe malnutrition is slim." -Continues "aggressive wound care w/ diverting loop ostomy and off-loading will probably benefit the patient more." Constipation Proctitis bisacodyl [place] x 1 on admission Per records, pt has since had BMs Continue with bowel regimen Hypothyroidism TSH 26.8, free T4 0.57 will give levothyroxine IV 25mcg x 1 now once/if able to tolerate po will need to initiate oral Synthroid PCP follow up after discharge Hypoglycemia Pt with noted episodes of low glucose levels Given amp of dextrose on 08/22 Encourage po intake Continue to monitor Severe protein calorie malnutrition Speech consulted- appreciate recs Principal Associate consulted-appreciate recs Will need to have further family discussion regarding goals of care given poor nutritional status and likely poor wound healing- palliative care consult placed. -reports of family declining SNF placement and desirous of taking pt home -per CM, [facility] contacted and were already aware of pt. No concerns for neglect but family did not have resources to properly take care of pt. Diet: Regular, pureed DVT ppx: SQ Heparin q12 Code Status: Admitting team discussed in detail with son, pt has not expressed wishes in past and does not have living will/advanced directive. Son advised at that time that he wished to speak with pt's and his brother to determine goals of care. Will remain full code until family expresses otherwise. Dispo: currently uncertain Admission and Anticipated Discharge Date Admission Date: August 21, 2023 Subjective Pt was seen laying in bed. Nonverbal. Review of Systems Review of Systems: Unobtainable due to cognitive status Physical Exam Physical Exam: General: sleeping Skin: sacral ulcer covered at the time of exam Psych: mood and affect could not be determined Neuro: nonverbal HEENT: NC/AT CV: RRR Resp: no increased effort of breathing Abdomen: Soft Extremities: No edema in lower extremities bilaterally. Results & Data Results & Data Vital Signs (Past 12 Hours) Vital Signs Temp Pulse Pulse Resp BP BP Pulse Ox 08/25/23 11:25 08/25/23 11:11 36.5 C 97 H 18 150/68 H 96 08/25/23 07:29 36.4 C L 59 L 18 146/68 H 96 08/25/23 05:59 56 L 08/25/23 04:17 36.3 C L 88 20 139/60 94 08/25/23 01:50 08/24/23 23:59 66 O2 Del Method 08/25/23 11:25 Room Air 08/25/23 11:11 Room Air 08/25/23 07:29 Room Air 08/25/23 05:59 08/25/23 04:17 Room Air 08/25/23 01:50 Room Air 08/24/23 23:59 (4) Dementia Dementia type: unspecified type (5) Hypothyroidism Hypothyroidism type: unspecified Qualified Code(s): E03.9 - Hypothyroidism, unspecified
--- NOTE | 2023-08-25 16:19 | Palliative Care Consultation ---
Date of Consultation August 25, 2023 Assessment & Plan (1) Weakness generalized: (2) Altered mental status: Altered mental status type: stupor Qualified Code(s): R40.1 - Stupor (3) Lethargy: (4) Palliative care by specialist: (5) Discussion about advance care planning held with family member: Family meeting needed with pt and sons Will try to call them later today no answer when I tried this afternoon (6) Encounter for assessment of healthcare decision-making capacity: pt is not decisional adv dementia likely Fast 7d (7) Dementia: Dementia type: unspecified type (8) Osteomyelitis of coccyx: (9) Severe protein-calorie malnutrition: (10) Failure to thrive: Failure to thrive age range: in adult Qualified Code(s): R62.7 - Adult failure to thrive Plan Will try to reach family for ACP discussion Pt does not have a curable or fixable issues. She is transitioning from a process of living to a process of dying. Strongly recommend comfort care and hospice if family comes tonight and discussion can be held. I am available to help y phone after 730pm tonight if needed, please page me. Thank you for allowing us to participate in the ongoing care of this patient. Please don't hesitate to call or page with any additional concerns. Dr. Rain Parson DNP Director, Palliative Care History of Present Illness Reason for Consultation: [facility] Attending Physician: Kimberly Espinal MD History of Present Illness 83yo fem with dementia, worsening wound: Sacral decubitus ulcer with a small of gas and infiltration surrounding the distal sacrum/coccyx. There is partial erosion of the distal sacrum/coccyx is consistent with an osteomyelitis. 2. Moderate rectal wall thickening consistent with a nonspecific proctitis.3. Moderate fecal retention.4. Large hiatus hernia.5. Multiple subacute to chronic compression deformities within the lower thoracic and lumbar spine as described above. Presented to ED 08/21/23: "Patient is a 83-year-old female history of hypothyroidism and dementia presenting here today via ambulance from her home. Apparently wound care visited was concerned regarding a large wound on the patient's sacrum. Patient herself not a good historian. EMS states that she can bite at times and has been a bit irritable particular with them trying to take blood pressures or vitals. With EMS assistance moved her over to our stretcher. Patient's son later arrives and states his mother has been nonverbal for more than a year and probably has had a significant plan of the last 3 months. Was on hospice over years ago but no longer. Has not been to the doctor in quite some time given her dementia status and difficulty transporting. States he did take her to the [facility] for evaluation yesterday but they elected to clean it and set them up with home health. Son often helps hold her up and notes she has had a few boils back there but more recently last week or 2 things have significantly worsened into this wound." She was found to have a large sacral decubitus ulcer. lactate normal no cytopenias Wound Cx growing staph species -remains on IV Vancomycin and Zosyn CT in ED: cellulitis and sacral decub as well as possibly some osteomyelitis localized to the area evaluated by surgery- wound is not likely to heal and no operative intervention can be offered; Alvin agreed with surgery she was not safe candidate and expressed wish for pt to return home however the home care nursing team expressed concerns about family's ability/resources to care for and meet pt needs. pt does not have adv directive on file tehre are no prior AD discussions on file son advised he needs to speak with brother and father PT REMAINS FULL CODE At time of my visit there is no family present she is lying in bed grimacing she is not responsive to questioning and cannot follow commands she cannot provide HPI Allergies Allergy/AdvReac Type Severity Reaction Status Date / Time bee venom protein (honey bee) Allergy localized Verified 08/21/23 19:25 swelling Penicillins Allergy Rash Verified 08/21/23 19:25 Sulfa (Sulfonamide Allergy Unknown Verified 08/21/23 19:25 Antibiotics) tomato Allergy tomato Verified 08/21/23 19:25 plant kevin cause rash Home Medications Medication Instructions Recorded Confirmed Type No Known Home Medications 08/21/23 08/21/23 History Patient History Medical History (Updated 08/25/23 @ 16:15 by Rain Parson DNP) Encounter for assessment of healthcare decision-making capacity Discussion about advance care planning held with family member Palliative care by specialist Lethargy Altered mental status Weakness generalized Hypothyroidism Abdominal pain Dementia Surgical History H/O breast biopsy Family History Mother Cancer Social History Smoking Status: Unknown if ever smoked Second Hand Exposure: No; Do You Dip or Chew Tobacco: No; Hx Alcohol Use: No (JULISSA) Hx Substance Use: No (JULISSA) Preferred Language: St Helen[place] Communication Ability: Unable Communication Ability Comment: unable to assess; pt nonverbal Rubber Goods Cutter Finisher Required: No Beliefs That Will Affect Care: None marital status: marital status details: Current Living Situation: Family Current Living Situation Comment: Jaycee Berry current occupational status: retired 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 How many Children do You have: 2 other: 2 sons Feels Safe at Home: Declines to Answer and Hesitant to Answer Assistive Devices: Hospital Bed Review of Systems Review of Systems: Unobtainable due to cognitive status Physical Exam Physical Exam: frail cachectic elderly female lying supine in bed no family present bitemp wasting contractures grimacing at times non verbal did not follow commands, opens eyes to verbal but does not track or purposefully engage abd distended wound dressing intact, +bowel odor she is unable to engage with this examiner she is not verbal she cannot follow commands Results & Data Vital Signs (Past 12 Hours) Vital Signs Temp Pulse Pulse Resp BP BP Pulse Ox 08/25/23 15:31 36.3 C L 75 16 142/76 H 95 08/25/23 11:25 08/25/23 11:11 36.5 C 97 H 18 150/68 H 96 08/25/23 07:29 36.4 C L 59 L 18 146/68 H 96 08/25/23 05:59 56 L 08/25/23 04:17 36.3 C L 88 20 139/60 94 O2 Del Method 08/25/23 15:31 Room Air 08/25/23 11:25 Room Air 08/25/23 11:11 Room Air 08/25/23 07:29 Room Air 08/25/23 05:59 08/25/23 04:17 Room Air Laboratory Results data reviewed Diagnostic Findings data reviewed PG Care Time/CCT Total # of Minutes Spent Total Time Spent with Patient: Total time spent is greater than 50% in coordination of care (as documented) at patient's floor/unit and/or counseling patient: I spent 60 minutes overall addressing this case: 20 min in medical data review/discussion with referring provider(s) and/or preparation for the visit 25 min in direct interaction with the patient/exam 000 min in Advance Care Planning/Goals of Care discussions as detailed above in note (must be >16min) 5 min in subsequent review and synthesis of assessment and plan 10 min communicating with other providers regarding the patient's case: care mgt [place] [address] IN/OBS CONSULT LVL 4,60M Patient Type New History Comprehensive Exam Comprehensive Medical Decision Making High Complexity Diagnoses Weakness generalized R53.1 Stupor R40.1 Altered mental status type: stupor Lethargy R53.83 Palliative care by specialist Z51.5 Discussion about advance care planning held with family member Z71.0 Encounter for assessment of healthcare decision-making capacity Z02.79 Dementia F03.90 Dementia type: unspecified type Osteomyelitis of coccyx M46.28 Severe protein-calorie malnutrition E43 Failure to thrive in adult R62.7 Failure to thrive age range: in adult
--- NOTE | 2023-08-25 16:35 | Infectious Disease Consult ---
<Statement entered by Nitish Fonseca MD - 08/25/23 17:34> Attending addendum This 83 y/o female, wheelchair/bed-bound, w/ hx of dementia and severe maln utrition, was admitted to [facility] on 08/21/23 for OM of sacrum in the setting of unsteageable sacral decub ulcer. CT showed small gas infiltration surrounding the distal sacrum/coccyx w/ partial bone erosion as well as moderate rectal wall thickening consistent w/ OM and proctitis. Superficial wound culture grew MSSA and multiple other spp and urine culture, moseley-S E coli. Given expected poor wound healing, surgery recommended against surgical approach. The patient is currently on zosyn and vancomycin iv. Has hx of allergy to PCN (but tolerating zosyn) and sulfa. I am not against using unasyn iv, 1.5 gm q8 hours given her CrCl ~42 and low body weight. However, this 6-week iv abx therapy may not give a last effect as no OR debridement has been performed and the chance of this large wound healing in this patient, bed-ridden, w/ severe malnutrition is slim. Aggressive wound care w/ diverting loop ostomy and off-loading will probably benefit the patient more. I saw and evaluated the patient today. I have reviewed the trainee note and agree. I spent a total of 60 minutes coordinating, documenting, and providing care for this patient excluding time spent in performance of separately billed services. Date of Service August 25, 2023 Telehealth Information I performed this visit using a real-time telehealth connection between my location and the patients location ([facility]). After connecting through interactive tele-video, patient was identified by name and date of and/or wristband check.Patient (or authorized healthcare textile machinery sales representative) was informed that this was a telemedicine visit and it was being conducted confidentially over secure lines. My office door was closed and no one else was present in the room with me.Patient (or authorized healthcare textile machinery sales representative) provided consent to proceed with the visit, expressed an understanding of privacy and security of the telemedicine visit, and gave permission to have a hospital textile machinery sales representative in the room in order to assist with the visit and to conduct portions of the visit, as needed. I informed the patient (or authorized healthcare textile machinery sales representative) that I reviewed their record and presented the opportunity for them to ask any questions regarding the visit today. The patient agreed to participate. Assessment & Plan (1) Osteomyelitis of coccyx: (2) Sacral decubitus ulcer: (3) Wound of sacral region: Plan reviewed wound Cx:: MSSA, GNB, GPB, GNC and Surgery plans noted, no further debridement planned, We recommend to stop IV vancomycin and switch IV zosyn to IV unasyn 1.5gm Q8hrs for total of 6 weeks. Again Iv antibiotics alone will not treat the wound and OM, and needs better source control. We recommend aggressive wound care and offloading and considering other measures like colostomy to reduce the bacterial burden on the wound. If patient is considered a candidate for hospice then you can consider switching IV unasyn to PO Augmentin 875mg TID Needs CBC, CMP weekly and CRP [id number] while being on antibiotics and we recommend using probiotics Infectious disease will stop following, please call us with any questions. History of Present Illness History of Present Illness 83-year-old female with significant history dementia, bed-bound/wheelchair dependent admitted with worsening sacral wound with foul-smelling drainage, bladder/pus coming from the wound. General surgery did not recommend any debridement and recommended palliative consult (she was previously on hospice in 2018 but has come off as she improved) Patient remained afebrile, T-max 36.9, WBC:6K, BCX from 08/21:NGTD, wound Cx from 08/21: MSSA, GNB, GPB, GNC. UCX from 08/22: E.coli(S-Augmentin, ampicillin, Unasyn, cefazolin, cefepime, ceftriaxone, Cipro, ertapenem, Gent, Levaquin, meropenem, nitrofurantoin, tobramycin, Bactrim, Zosyn) Antibiotics: Vancomycin, Zosyn day 2 Allergies Allergy/AdvReac Type Severity Reaction Status Date / Time bee venom protein (honey bee) Allergy localized Verified 08/21/23 19:25 swelling Penicillins Allergy Rash Verified 08/21/23 19:25 Sulfa (Sulfonamide Allergy Unknown Verified 08/21/23 19:25 Antibiotics) tomato Allergy tomato Verified 08/21/23 19:25 plant kevin cause rash Home Medications Medication Instructions Recorded Confirmed Type No Known Home Medications 08/21/23 08/21/23 History Patient History Medical History (Updated 08/25/23 @ 16:15 by Rain Parson DNP) Encounter for assessment of healthcare decision-making capacity Discussion about advance care planning held with family member Palliative care by specialist Lethargy Altered mental status Weakness generalized Hypothyroidism Abdominal pain Dementia Surgical History H/O breast biopsy Family History Mother Cancer Social History Smoking Status: Unknown if ever smoked Second Hand Exposure: No; Do You Dip or Chew Tobacco: No; Hx Alcohol Use: No (JULISSA) Hx Substance Use: No (JULISSA) Preferred Language: Salvadorean Communication Ability: Unable Communication Ability Comment: unable to assess; pt nonverbal Marketing Sales Representative Required: No Beliefs That Will Affect Care: None marital status: marital status details: Current Living Situation: Family Current Living Situation Comment: Jaycee Berry current occupational status: retired 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 How many Children do You have: 2 other: 2 sons Feels Safe at Home: Declines to Answer and Hesitant to Answer Assistive Devices: Hospital Bed Review of Systems Can not assess due to patient's mentation Physical Exam Physical exam limited Results & Data Vital Signs (Past 12 Hours) Vital Signs Temp Pulse Pulse Resp BP BP Pulse Ox 08/25/23 15:31 36.3 C L 75 16 142/76 H 95 08/25/23 14:02 58 L 08/25/23 11:25 08/25/23 11:11 36.5 C 97 H 18 150/68 H 96 08/25/23 07:29 36.4 C L 59 L 18 146/68 H 96 08/25/23 05:59 56 L O2 Del Method 08/25/23 15:31 Room Air 08/25/23 14:02 08/25/23 11:25 Room Air 08/25/23 11:11 Room Air 08/25/23 07:29 Room Air 08/25/23 05:59 Laboratory Results Abnormal Lab Results 08/25/23 09:14 WBC 6.42 RBC 4.29 Hgb 12.7 Hct 40.2 MCV 93.7 MCH 29.6 MCHC 31.6 L RDW Std Deviation 52.2 H RDW Coeff of Patrick 15.2 H Plt Count 310 MPV 9.7 Immature Gran % (Auto) 3.6 Neut % (Auto) 58.9 Lymph % (Auto) 24.6 [place] % (Auto) 11.2 Eos % (Auto) 1.2 Baso % (Auto) 0.5 Neut # (Auto) 3.78 Lymph # (Auto) 1.58 [place] # (Auto) 0.72 H Eos # (Auto) 0.08 Baso # (Auto) 0.03 Immature Gran # (Auto) 0.23 H Sodium 142 Potassium 4.1 Chloride 108 H Carbon Dioxide 31 Anion Gap 3 BUN 11 Creatinine 0.53 L Est Cr Clr Drug Dosing 42.3 Est GFR ( Amer) 100.3 Est GFR (Non-Af Amer) 86.6 BUN/Creatinine Ratio 20.8 H Glucose 130 H Calcium 8.6 Phosphorus 2.6 Magnesium 2.1 Total Bilirubin 0.6 AST 15 ALT 6 L Alkaline Phosphatase 68 Total Protein 6.1 Albumin 2.6 L Globulin 3.5 Albumin/Globulin Ratio 0.7 L Random Vancomycin 13.[address] concerning for sacral decubitus ulcer, small gas, infiltration surrounding the distal sacrum, partial erosion of the distal sacrum/coccyx consistent with osteomyelitis, nonspecific proctitis, moderate fecal retention, large hiatal hernia, multiple subacute to chronic compression deformities within the lower thoracic and lumbar spine Medications Administered Home Medications Medication Instructions Recorded Confirmed Last Taken No Known Home Medications 08/21/23 08/21/23 Unknown Active Medications Generic Name Dose Route Start Last Admin Trade Name Douglasq PRN Reason Stop Dose Admin Heparin Sodium (Porcine) 5,000 units 08/21/23 22:12 08/25/23 08:23 Heparin Sod 5,000 Unit/0.5 Ml Vial SQ 09/20/23 22:11 5,000 units Q12 KARLIE Administration Piperacillin Sod/Tazobactam 100 mls @ 25 mls/hr 08/22/23 00:00 08/25/23 15:54 Sod 4.5 gm/ Dextrose IV 10/03/23 00:00 25 mls/hr Q8H KARLIE Administration Protocol Vancomycin HCl 500 mg/ Sodium 110 mls @ 132 mls/hr 08/24/23 09:30 08/25/23 11:42 Chloride IV 10/05/23 09:29 Infused Q12H KARLIE Infusion (3) Wound of sacral region Encounter type: subsequent encounter Qualified Code(s): S31.000D - Unspecified open wound of lower back and pelvis without penetration into retroperitoneum, subsequent encounter
--- NOTE | 2023-08-25 20:21 | Palliative Family Discussion ---
Date of Service August 25, 2023 Patient Directed Conference Time of Meetin-745pm Participants: Rain Parson DNP Patient participation: lacks capacity d/t very adv dementia Patient Support System: son Judah and Alvin Other Healthcare Provider Participation: None Meeting Location: telephonic no AD available or on file A family meeting was held for ANIL NORIEGA. This meeting was necessary for determining the appropriate course of treatment. Topics of Discussion Topics of Discussion: 1. We reviewed her clinical problems alfa her large decub wound which is not fixable/not healable and not operable. This wound will continue to progress, it is a terminal wound. Ultimately it will lead to her . I reviewed CPR at this junction is not helpful, she will on machines. We reviewed CPR survival: Only about 10% of patients who have [id number] sudden cardiac arrest survive to hospital discharge, with many survivors having neurologic impairment. This rate is even lower among patients with serious coexisting conditions, ie chance of survival to hospital discharge for in-hospital CPR in older people is low to moderate (15%) and decreases with age, comorbidities, performance status and frailty: for pts > 70 yo, more than half of the patients who initially survived resuscitation in the hospital before hospital discharge. The pooled survival to discharge after in-hospital CPR was 18% for patients between 70 and 79 years old, 15% for patients between 80 and 89 years old and 11% for patients of 90 years and older. (Corby PIZARRO, Pedro LJ, Teto F, et al. Trends in short- and long-term survival among [id number]-pefsovyp cardiac arrest patients alive at hospital arrival. Circulation 2014;130:1721-2747. AND Carolee Nava, Brandy T, Amanda R, et al. Performance of clinical risk scores to predict mortality and neurological outcome in cardiac arrest patients. Resuscitation 2019;136:21-29.) 2. I reviewed pt is grimacing a lot and appears uncomfortable, She cannot communicate her needs or distress but likely this is uncontrolled wound pain. ADvised I believe she is transitioning to end of life and medical teams are all in agreement it is time to transition her to comfort care and focus on QOL with sx mgt. 3. We discussed the goals of hospice as a patient service and the goals of care; we discussed EOL trajectories and transitions alfa the emotional impact of realizing mortality as a concrete reality from prior abstract considerations. Pt was reassured that no matter where they are along this trajectory, they are not alone - their medical team will remain by their side through their journey. Discussed the pros/cons of accepting help when especially weakened and distressed by pain-which would also help provide relief/decrease caregiver burden/strain. I provided education about the hospice benefit: an interdisciplinary program offered by nurses, nurses aides, social workers, chaplains and a medical malpractice paralegal for patients with a terminal condition and a life expectancy of less than 6 months. This is covered by Medicare at 100%/no out of pocket expense to patient and all meds/supplies needed by patient for the reason they are on hospice are paid for/covered by hospice. The goal is assure quality of life of the patient in their home setting (home, residential, inpatient hospice setting) by providing symptoms management, psychosocial and spiritual support. However, they cannot offer 24 hours care and if the family is unable to provide that care, they will have to consider personal care with out of pocket cost vs. residential placement. We discussed the goals of hospice as a patient service and the goals of care; we discussed EOL trajectories and transitions alfa the emotional impact of realizing mortality as a concrete reality from prior abstract considerations. Pt was reassured that no matter where they are along this trajectory, they are not alone - their medical team will remain by their side through their journey. Discussed the pros/cons of accepting help when especially weakened and distressed by pain-which would also help provide relief/decrease caregiver burden/strain. Shweta shared she had been on hospice in 2018 and they dc her for getting too well. Advised Shweta we are in a different place now. She is not going to recover from this very adv wound which is not reversible, curable or fixable. 4. Family in agreement for transition to comfort care and no code. they would like for her to come home with hospice once we feel her symptoms are more controlled alfa pain. she is grimacing quite a bit. i will write comfort care orders. we are stopping non comfort, non essential interventions. we discussed she is not a surgical candidate and there is no cure possible for her wound. family was accepting of this and are strongly committed to have her return home if they can bc that would mean the most to her . they feel they can manage her between the 3 of them. i gave him a very thorough explanation of hospice. if he has other questions at this junction it will be about logistics and not clinical hospice care issues. i reviewed i do not think her care will be complex-mostly bed bound and wound care which hospice team can help with. i think a home hospice dc for later this week would be fair. they don't know what agency they want or what DME they need so CM will f/u tomorrow. she will need transport home. also i reviewed very explicitly she may rapidly decline given overall frailty, declining PS, malnutrition, FTT and wound and if this happens to where she is not safe to transport we will keep her inpatient and care for her through the end. Other Content of Meetin. Opportunity given for participants to speak and ask questions. 2. Participants were assured of attention to patient comfort. 3. Reassurance provided. 4. Support was provided for informed, good-ozzie decisions. 5. Emotions expressed by family were acknowledged and addressed. 6. Move to POSTAL SERVICE MAIL PROCESSOR 7. Updated CM and primary team by TT TS 45min in ACP and GOC MDM HIGH Thank you for allowing us to participate in the ongoing care of this patient. Please don't hesitate to call or page with any additional concerns. Dr. Rain Parson DNP Director, Palliative Care
[2023-08-25] MEDS ORDERED: MoRPHine SULFATE 2 MG/ML CARP IV PRN (20:23)
[2023-08-25] MEDS ORDERED: LORazepam 1 MG TAB PO PRN (20:23)
[2023-08-25] MEDS ORDERED: LORazepam 0.5 MG in SYRINGE 0.25 ML IV PRN (20:23)
[2023-08-25] MEDS ORDERED: ONDANSETRON 4 MG OD TAB SL PRN (20:23)
[2023-08-25] MEDS ORDERED: HYOSCYAMINE SULFATE 0.125 MG TAB SL PRN (20:23)
[2023-08-25] MEDS: MoRPHine SULFATE 10 MG/0.5 ML UDP PO PRN (23:47)
--- NOTE | 2023-08-26 12:31 | Hospitalist Progress Note ---
Date of Service August 26, 2023 Assessment & Plan (1) Sacral decubitus ulcer: (2) Osteomyelitis of coccyx: (3) Proctitis: (4) Dementia: (5) Hypothyroidism: (6) Severe protein-calorie malnutrition: Plan This is an 83 yr old F who has significant PMH of dementia who presents to ED 2/2 sacral wound. Pt was transitioned to comfort measures on 08/25 per Palliative Care. IV antibiotics continued. Notified on 08/26 that Jose Antonio macario's son wanted to discuss the option of hyperbaric treatment. Discussed, he was advised can likely pursue as a palliative measure at tertiary care center after discharge but will likely have little benefit. Son still weighing options and states he will think about things some more and get back to the team about his decision as to whether to proceed with full comfort measures. Pt was previously treated for the following: Sacral decubitus wound Osteomyelitis of sacrum CT abd/pelvis: -Sacral decubitus ulcer with a small of gas and infiltration surrounding the distal sacrum/coccyx. There is partial erosion of the distal sacrum/coccyx is consistent with an osteomyelitis. 2. Moderate rectal wall thickening consistent with a nonspecific proctitis.3. Moderate fecal retention.4. Large hiatus hernia.5. Multiple subacute to chronic compression deformities within the lower thoracic and lumbar spine as described above. Wound Cx currently growing staph species Blood Cx x2 with NGTD Continue IV Vancomycin and Zosyn Consult wound care- appreciate recs Consult ID for osteomyelitis- appreciate recs Consult general surgery for possible wound debridement?-pictures currently in chart- appreciate recs -Gen Surg recommending palliative consult -no plans for surgical intervention Complicated UTI UA suggestive of infection Urine Cx grew pansensitive E coli Continue IV Zosyn as above in setting of need for IV abx for osteomyelitis ID previously consulted, recommending the following: -unasyn iv, 1.5 gm q8 hours given her CrCl ~42 and low body weight. -Notes "this 6-week iv abx therapy may not give a last effect as no OR debridement has been performed and the chance of this large wound healing in this patient, bed-ridden, w/ severe malnutrition is slim." -Continues "aggressive wound care w/ diverting loop ostomy and off-loading will probably benefit the patient more." Constipation Proctitis bisacodyl [place] x 1 on admission Per records, pt has since had BMs Continue with bowel regimen Hypothyroidism TSH 26.8, free T4 0.57 will give levothyroxine IV 25mcg x 1 now once/if able to tolerate po will need to initiate oral Synthroid PCP follow up after discharge Hypoglycemia Pt with noted episodes of low glucose levels Given amp of dextrose on 08/22 Encourage po intake Continue to monitor Severe protein calorie malnutrition Speech consulted- appreciate recs Tobacco Stemmer Machine consulted-appreciate recs Will need to have further family discussion regarding goals of care given poor nutritional status and likely poor wound healing- palliative care consult placed. -reports of family declining SNF placement and desirous of taking pt home -per CM, Office of Aging contacted and were already aware of pt. No concerns for neglect but family did not have resources to properly take care of pt. Diet: Regular, pureed DVT ppx: SQ Heparin q12 Code Status: Admitting team discussed in detail with son, pt has not expressed wishes in past and does not have living will/advanced directive. Son advised at that time that he wished to speak with pt's and his brother to determine goals of care. Will remain full code until family expresses otherwise. Dispo: currently uncertain Admission and Anticipated Discharge Date Admission Date: August 21, 2023 Subjective pt currently comfort measures. However, notified that Jose Antonio pt's son wanted to discuss the option of hyperbaric treatment. Call placed. Review of Systems Review of Systems: All systems reviewed & are unremarkable except as noted in Subjective Physical Exam Physical Exam: General: sleepy Skin: sacral ulcer covered at the time of exam Psych: mood and affect could not be determined Neuro: nonverbal HEENT: NC/AT CV: RRR Resp: no increased effort of breathing Abdomen: Soft Extremities: No edema in lower extremities bilaterally. Results & Data Results & Data Vital Signs (Past 12 Hours) Vital Signs O2 Del Method 08/26/23 10:48 Room Air (4) Dementia Dementia type: unspecified type (5) Hypothyroidism Hypothyroidism type: unspecified Qualified Code(s): E03.9 - Hypothyroidism, unspecified
--- NOTE | 2023-08-26 16:00 | Palliative Family Discussion ---
Date of Service August 26, 2023 Patient Directed Conference Family meeting with son Jose Antonio by phone, [phone] Topics of Discussion Topics of Discussion: 1. He wants to know if she can have hyperbaric wound therapy. Between her very severe wound, inability to off load, severe malnutrition, cachexia, advanced neurologic failure with dementia and impaired reps dynamics, she would not be safe candidate for HBOT and it is not likely to cure, reverse or fix her wound at this late stage 2. He is seeking more info about hospice agency choices-I have asked CM to call him 3. He wants assurances staff is patient in attempts to feed her and states she is a "slow eater" - reassurance provided along with additional education that as people near the end of their lives they take less and less PO 4. He does not recall prior hospice agency and states he did not care for them anyway, wants to hear about choices. We discussed the goals of hospice as a patient service and the goals of care; we discussed EOL trajectories and transitions alfa the emotional impact of realizing mortality as a concrete reality from prior abstract considerations. Pt was reassured that no matter where they are along this trajectory, they are not alone - their medical team will remain by their side through their journey. Discussed the pros/cons of accepting help when especially weakened and distressed by pain-which would also help provide relief/decrease caregiver burden/strain. I provided education about the hospice benefit: an interdisciplinary program offered by nurses, nurses aides, social workers, chaplains and a biomedical engineering director for patients with a terminal condition and a life expectancy of less than 6 months. This is covered by Medicare at 100%/no out of pocket expense to patient and all meds/supplies needed by patient for the reason they are on hospice are paid for/covered by hospice. The goal is assure quality of life of the patient in their home setting (home, prison, inpatient hospice setting) by providing symptoms management, psychosocial and spiritual support. However, they cannot offer 24 hours care and if the family is unable to provide that care, they will have to consider personal care with out of pocket cost vs. prison placement. We discussed the goals of hospice as a patient service and the goals of care; we discussed EOL trajectories and transitions alfa the emotional impact of realizing mortality as a concrete reality from prior abstract considerations. Pt was reassured that no matter where they are along this trajectory, they are not alone - their medical team will remain by their side through their journey. Discussed the pros/cons of accepting help when especially weakened and distressed by pain-which would also help provide relief/decrease caregiver burden/strain. Other Content of Meetin. Opportunity given for participants to speak and ask questions. 2. Participants were assured of attention to patient comfort. 3. Reassurance provided. 4. Support was provided for informed, good-ozzie decisions. 5. Emotions expressed by family were acknowledged and addressed. 6. He and family affirm they desire a plan of care focused on her comfort and we discussed her symptom mgt needs alfa the grimacing she has been doing. he asked how much pain med she's been given and i reviewed the MAR with him, she had 3 doses of the prn Roxanol 5mg PO and he feels this will "dope her up and make her feel like she's flying." I advised these were spaced out doses over past 12+ hours and she had a dose prior to wound care which given her discomfort is necessary. Jose Antonio agreed and reiterated family wants her comfortable above all else. All questions were answered to his apparent satisfaction and he verbalized understanding. I asked CM to call him as he requested, Later I was notified by CM that Jose Antonio wants to speak with Dr Espinal re: HBOT for the wound and does not want to agree to hospice until he has that discussion. I was asked to see this pt to assist with code status, family meeting and ACP + GOC. Code has been changed to DNR/DNI They are considering hospice after discussion with primary team re HBOT I will sign off as there are no high acuity/urgent pall med needs If HBOT is pursued, I do not believe it will offer any meaningful benefit to this terminal dementia patient. Additionally, hospice will not cover HBOT. TS 25min MDM HIGH Thank you for allowing us to participate in the ongoing care of this patient. Please don't hesitate to call or page with any additional concerns. Dr. Rain Parson DNP Director, Palliative Care
[2023-08-27] MEDS: UNASYN 3000MG / NS q6h IV SCH (16:20)
--- NOTE | 2023-08-27 16:22 | Hospitalist Progress Note ---
Date of Service August 27, 2023 Assessment & Plan (1) Sacral decubitus ulcer: (2) Osteomyelitis of coccyx: (3) Proctitis: (4) Dementia: (5) Hypothyroidism: (6) Severe protein-calorie malnutrition: Plan Ms Anna is an 83 year old with hypothyroidism, severe constipation, advanced dementia who is admitted for evaluation of sacral decubitus ulcer. Pt was transitioned to comfort measures on 08/25 per Palliative Care. IV antibiotics discontinued today given inability to obtain vascular access. Family initially interested in alternative treatments, such as hyperbaric oxygen. Long discussion on 08/27 had regarding HBOT--logistics, contraindications/eligibility, as well as other limiting factors. Son and appear to understand gravity of situation given the multiple concurrent issues at hand. Pt was previously treated for the following: Sacral decubitus wound Osteomyelitis of sacrum CT abd/pelvis: -Sacral decubitus ulcer with a small of gas and infiltration surrounding the di stal sacrum/coccyx. There is partial erosion of the distal sacrum/coccyx is consistent with an osteomyelitis. 2. Moderate rectal wall thickening consistent with a nonspecific proctitis.3. Moderate fecal retention.4. Large hiatus hernia.5. Multiple subacute to chronic compression deformities within the lower thoracic and lumbar spine as described above. Wound Cx currently growing staph species Blood Cx x2 with NGTD ABX discontinued 08/27 Consult wound care- Consult ID for osteomyelitis- recommended 6 weeks unsyn, however without debridement/source control, not beneficial Consult general surgery for possible wound debridement?-pictures currently in chart- appreciate recs -Gen Surg recommending palliative consult -no plans for surgical intervention Complicated UTI UA suggestive of infection Urine Cx grew pansensitive E coli Continue IV Zosyn as above in setting of need for IV abx for osteomyelitis ID previously consulted, recommending the following: -unasyn iv, 1.5 gm q8 hours given her CrCl ~42 and low body weight. -Notes "this 6-week iv abx therapy may not give a last effect as no OR debridement has been performed and the chance of this large wound healing in this patient, bed-ridden, w/ severe malnutrition is slim." -Continues "aggressive wound care w/ diverting loop ostomy and off-loading will probably benefit the patient more." Constipation Proctitis bisacodyl [place] x 1 on admission Per records, pt has since had BMs Continue with bowel regimen Hypothyroidism TSH 26.8, free T4 0.57 will give levothyroxine IV 25mcg x 1 now once/if able to tolerate po will need to initiate oral Synthroid PCP follow up after discharge Hypoglycemia Pt with noted episodes of low glucose levels Given amp of dextrose on 08/22 Encourage po intake Continue to monitor Severe protein calorie malnutrition Speech consulted- appreciate recs Gate Watchman consulted-appreciate recs Will need to have further family discussion regarding goals of care given poor nutritional status and likely poor wound healing- palliative care consult placed. -reports of family declining SNF placement and desirous of taking pt home -per CM, Office of Aging contacted and were already aware of pt. No concerns for neglect but family did not have resources to properly take care of pt. #Comfort Care Measures only -Given multiple comorbidities, including incontinence, sacral decubitus complicated by osteomyelitis, advanced dementia, patient deemed poor surgical candidate--also noting severe protein calorie malnutrition. Patient transitioned to AIRCREWMAN. Plan to dispo with Home hospice. Diet: Regular, pureed DVT ppx: comfort Code Status:DNR DNI Dispo:Home Hospice Admission and Anticipated Discharge Date Admission Date: August 21, 2023 Subjective Patient evaluated at bedside. Mouths for bites of food, but nonverbal otherwise Son, Jose Antonio, and , Ismael met at bedside. 65 minutes spent explaining medical complexity preventing further intervention Physical Exam Constitutional: WD/WN, vitals as above Respiratory: normal respiratory effort, lungs clear to auscultation Gastrointestinal (Abdomen): normal bowel sounds, soft, nontender, no hepatosplenomegaly Skin: large mepilex on sacrum, reddusky discoloration along back/buttock Results & Data Results & Data Vital Signs (Past 12 Hours) Vital Signs Temp Pulse Resp BP Pulse Ox O2 Del Method 08/27/23 09:26 Room Air 08/27/23 07:40 36.2 C L 70 20 142/62 H 94 Room Air Medications Administered Home Medications Medication Instructions Recorded Confirmed Last Taken No Known Home Medications 08/21/23 08/21/23 Unknown Active Medications Generic Name Dose Route Start Last Admin Trade Name Freq PRN Reason Stop Dose Admin Morphine Sulfate 5 mg 08/25/23 20:23 08/27/23 15:01 Morphine Sulfate 10 Mg/0.5 Ml Udp PO 09/08/23 20:22 5 mg Q1H PRN Administration Pain or Respiratory Distress (4) Dementia Dementia type: unspecified type (5) Hypothyroidism Hypothyroidism type: unspecified Qualified Code(s): E03.9 - Hypothyroidism, unspecified
[2023-08-28 08:00] VITALS: PULSE 80; RESP 16; TEMP 97.5; O2SAT 95
--- NOTE | 2023-08-28 14:47 | Discharge Summary ---
Discharge Summary Date of Service August 28, 2023 Notes For Next Care Provider Patient transitioned to comfort measures and hospice given large stage 4 decubitus sacral ulcer and ostemyelitis. Medication Changes From Visit none Admission HPI Per Admitting Provider This is an 83 yr old F who has significant PMH of dementia who presents to ED 2/2 sacral wound. Pt lives with son who is her main auto care center manager. At baseline she is nonverbal and has been this way for ~ 1 year. She just recently established care with [facility] yesterday due to family needing additional help at home with home health. She is wheel chair/bed bound at baseline. The son tries to re position her as much as possible; however due to dementia she doesn't always follow commands and always tends to be on the right side. Recently she had foul smelling drainage, blood/pus, coming from wound. Son was hopeful PCP would be able to help but due to nature of wound they were referred here. ROS unobtainable from pt. Hx obtained from son via telephone. Pt previously had been on hospice in 2018, but had since come off due to improvement. She does not take any medications at baseline. She previously was on Tumeric forte which son said significantly helped her ability to function at home. She has not been able to eat/drink on own for some time and requires assistance. Son denies pt reporting any significant pain or fever. In ED pt remained hemodynamically stable. CT a/p concerning for coccyx osteomyelitis. She has elevated CRP to 9.59. She also has significantly elevated TSH at 26. Admission Exam Per Admitting Provider GENERAL APPEARANCE: AxO0, malnourished, cachectic and agitated woman . HEENT: NC, AT. MMM. EOMI, clear conjunctiva, poor dentition NECK: Supple without lymphadenopathy. No stiffness or restricted ROM. HEART: Normal rate and regular rhythm, normal S1/S1, no m/r/g LUNGS: CTAB, diminished 2/2 effort ABDOMEN: Soft, nontender, nondistended with good bowel sounds heard. BACK: vertebrae visible, iliac crest of pelvis without fat pad/visible EXTREMITIES: Without cyanosis, clubbing or edema. NEUROLOGICAL: Grossly nonfocal. Skin: mepilex in place with considerable drainage and foul odor Principal Dx & Hospital Course #1 = Principal Diagnosis (1) Sacral decubitus ulcer: (2) Osteomyelitis of coccyx: (3) Proctitis: (4) Dementia: (5) Hypothyroidism: (6) Severe protein-calorie malnutrition: Plan Ms Anna is an 83 year old with hypothyroidism, severe constipation, advanced dementia who is admitted for evaluation of sacral decubitus ulcer. Pt was transitioned to comfort measures on 08/25 per Palliative Care. IV antibiotics discontinued today given inability to obtain vascular access. Family initially interested in alternative treatments, such as hyperbaric oxygen. Long discussion on 08/27 had regarding HBOT--logistics, contraindications/eligibility, as well as other limiting factors. Son and appear to understand gravity of situation given the multiple concurrent issues at hand. Plan for home hospice with [facility] Pt was previously treated for the following: Sacral decubitus wound Osteomyelitis of sacrum CT abd/pelvis: -Sacral decubitus ulcer with a small of gas and infiltration surrounding the distal sacrum/coccyx. There is partial erosion of the distal sacrum/coccyx is consistent with an osteomyelitis. 2. Moderate rectal wall thickening consistent with a nonspecific proctitis.3. Moderate fecal retention.4. Large hiatus hernia.5. Multiple subacute to chronic compression deformities within the lower thoracic and lumbar spine as described above. Wound Cx currently growing staph species Blood Cx x2 with NGTD ABX discontinued 08/27 Consult wound care- Consult ID for osteomyelitis- recommended 6 weeks unsyn, however without debridement/source control, not beneficial Consult general surgery for possible wound debridement?-pictures currently in chart- appreciate recs -Gen Surg recommending palliative consult -no plans for surgical intervention Complicated UTI UA suggestive of infection Urine Cx grew pansensitive E coli Continue IV Zosyn as above in setting of need for IV abx for osteomyelitis ID previously consulted, recommending the following: -unasyn iv, 1.5 gm q8 hours given her CrCl ~42 and low body weight. -Notes "this 6-week iv abx therapy may not give a last effect as no OR debridement has been performed and the chance of this large wound healing in this patient, bed-ridden, w/ severe malnutrition is slim." -Continues "aggressive wound care w/ diverting loop ostomy and off-loading will probably benefit the patient more." Constipation Proctitis bisacodyl [place] x 1 on admission Per records, pt has since had BMs Continue with bowel regimen Hypothyroidism TSH 26.8, free T4 0.57 will give levothyroxine IV 25mcg x 1 now once/if able to tolerate po will need to initiate oral Synthroid PCP follow up after discharge Hypoglycemia Pt with noted episodes of low glucose levels Given amp of dextrose on 08/22 Encourage po intake Continue to monitor Severe protein calorie malnutrition Speech consulted- appreciate recs Clinic Licensed Practical Nurse consulted-appreciate recs Will need to have further family discussion regarding goals of care given poor nutritional status and likely poor wound healing- palliative care consult placed. -reports of family declining SNF placement and desirous of taking pt home -per CM, Office of Aging contacted and were already aware of pt. No concerns for neglect but family did not have resources to properly take care of pt. #Comfort Care Measures only -Given multiple comorbidities, including incontinence, sacral decubitus complicated by osteomyelitis, advanced dementia, patient deemed poor surgical candidate--also noting severe protein calorie malnutrition. Patient transitioned to AIR BRAKE ADJUSTER. Plan to dispo with Home hospice. Diet: Regular, pureed DVT ppx: comfort Code Status:DNR DNI Dispo:Home Hospice Discharge Exam Constitutional WD/WN, vitals as above Respiratory normal respiratory effort, lungs clear to auscultation Gastrointestinal (Abdomen) normal bowel sounds, soft, nontender, no hepatosplenomegaly Skin large mepilex in place, violanceous, dusky discoloration diffusely along sacrum/buttocks Updated Medication List Medication Instructions Recorded Confirmed Type No Known Home Medications 08/21/23 08/21/23 History Hospital Stay Data Consultations 08/21/23 18:13 ED Decision to Admit Stat 08/21/23 19:42 Consult General Surgery Routine 08/22/23 19:17 Consult Infectious Diseases Routine 08/22/23 19:48 Consult Palliative Care Routine Diagnostic Imagining Performed 08/21/23 16:16 CT abd pelvis wo con Stat Pending Results Patient Have Any Pending Studies at Discharge: No Discharge Instructions Given to Patient (Per Discharging Provider) You are admitted for sacral decubitus ulcer, or a pressure injury that occurs from immobility. It is recommended that the would be irrigated/rinse with saline and bandages changed daily or if soiled. It is important to reposition/turn every 2 hours to off-load pressure on tissues Total Time Total Time Spent Total Time Spent (In Minutes): 35
[2023-08-28 16:43] VITALS: BP 146/68
== END 2023-08-28 17:47 | disposition hospice, home (50) | DRG 592 ==
LOC: ED 16:11 → SUATTDRO 18:33 → 2N 18:33